=== PATIENT | male | born 1940 | race Caucasian/White ===

== ENCOUNTER 2016-07-05 15:47 | Inpatient (IN) | payer MEDICARE ==
[2016-07-05] VITALS (7 sets, daily range): BP systolic 134–169; BP diastolic 86–108; PULSE 72–97; RESP 16–32; TEMP 98.2–98.4; O2SAT 83–97
[~2016-07-05 15:47] MED LIST: APIX5TAB PO; CALA180T PO; CEPH500C3 PO; FINA5TAB77 PO; GLUC500C56 PO; LASI20TA PO; LUMI0.01 EACH EYE; METF500 PO; MULT-65 PO; POTA-243 PO; SIMV10 PO; TAMS0.4C67 PO; TIMO0.5S6 OU
[2016-07-05] MEDS ORDERED: SODIUM CHLORIDE 0.9% FLUSH 5 ML FLUSH IVF PRN ×2 (16:45→21:00)
--- NOTE | 2016-07-05 16:55 | PD ---
HPI Chief Complaint: Respiratory Distress Time Seen by Provider: 16:46 Travel History International Travel<30 days: No Contact w/Intl Traveler<30days: No Traveled to known affect area: No History of Present Illness HPI 76-year-old male with history of chronic leg edema, hypertension, presents to the ER today because of ongoing worsening of bilateral leg edema, he has been having more dyspnea on exertion and shortness of breath, has 2 sit up to sleep. His home health care nurse talked to his primary care physician who sent him in for worsening shortness of breath. He has been coughing according to his and has been taking Robitussin for it. He denies any chest pains, fevers, or other symptoms. Modifying Factors: None Associated Signs & Symptoms: Coughing, shortness of breath, dyspnea on exertion , worsening leg edema Risk Factors: History of chronic leg edema PFSH Past Medical History Hx Anticoagulant Therapy: Yes (ELOQUIS) Atrial Fibrillation: Yes Anxiety: Yes Cancer: Yes (BCC) Cardiovascular Problems: Yes (A-FIB) Diabetes: No Diminished Hearing: Yes Gastrointestinal Disorders: No Glaucoma: Yes Genitourinary: Yes (BPH) Hepatitis: No Hiatal Hernia: No Hypertension: Yes Immune Disorder: No Medical other: Yes (BPH ; [place]) Musculoskeletal: No Neurologic: No Psychiatric: No Reproductive: No Respiratory: Yes (POSSIBLE SLEEP APNEA) Thyroid Disease: No Influenza Vaccination: Yes Past Surgical History Abdominal Surgery: Yes (REPAIR INGUINAL HERNIA) Eye Surgery: Yes (EYE TURNING IN 1950 ; LEFT CATARACT SX 07/06) Genitourinary Surgery: Yes (PROSTATE SURGERY) Oral Surgery: Yes (T&A) Pacemaker: No Other Surgery: Yes Social History Alcohol Use: Yes (10 BEERS A WEEK) Tobacco Use: No Substance Use: No Allergies-Medications (Allergen,Severity, Reaction): Coded Allergies: No Known Allergies (Verified , 01/03/16) Reported Meds & Prescriptions Reported Meds & Active Scripts Active Reported Finasteride 5 Mg Tab 5 Mg PO DAILY Do not crush. Finasteride 5 Mg Tab 5 Mg PO DAILY Do not crush. Furosemide 20 Mg Tab 20 Mg PO BID Eliquis (Apixaban) 5 Mg Tab 5 Mg PO BID Simvastatin 10 Mg Tab 10 Mg PO DAILY Verapamil SR (Verapamil HCl) 180 Mg Cap 180 Mg PO DAILY Potassium Chloride ER (Potassium Chloride) 20 Meq Tab 20 Meq PO BID Tamsulosin (Tamsulosin HCl) 0.4 Mg Cap 0.4 Mg PO HS Review of Systems Except as stated in HPI: all other systems reviewed are Neg Physical Exam Narrative GENERAL: Well-nourished, well-developed elderly white male patient sitting up in the stretcher, not in acute distress at rest. Awake and oriented 3. SKIN: Warm and dry. HEAD: Normocephalic. EYES: No scleral icterus. No injection or drainage. NECK: Supple, trachea midline. CARDIOVASCULAR: Regular rate and rhythm without murmurs, gallops, or rubs. RESPIRATORY: Breath sounds equal but decreased in the lower half of the lungs bilaterally bilaterally. No accessory muscle use. GASTROINTESTINAL: Abdomen soft, non-tender, nondistended. MUSCULOSKELETAL: No cyanosis. Bilateral pitting edema the legs up to the thigh. BACK: Nontender without obvious deformity. No CVA tenderness. Data Data Last Documented VS Vital Signs Date Time Temp Pulse Resp B/P Pulse Ox O2 Delivery O2 Flow Rate FiO2 07/05/16 18:00 82 16 169/108 95 Nasal Cannula 3 07/05/16 17:00 98.2 Orders Complete Blood Count With Diff (07/05/16 16:33) Comprehensive Metabolic Panel (07/05/16 16:33) B-Type Natriuretic Peptide (07/05/16 16:33) Act Partial Throm Time (Ptt) (07/05/16 16:33) Prothrombin Time / Inr (Pt) (07/05/16 16:33) Troponin I (07/05/16 16:33) Iv Access Insert/Monitor (07/05/16 16:33) Electrocardiogram (07/05/16 16:33) Ecg Monitoring (07/05/16 16:33) Oximetry (07/05/16 16:33) Oxygen Administration (07/05/16 16:33) Chest, Single Ap (07/05/16 16:33) Sodium Chloride 0.9% Flush (Ns Flush) (07/05/16 16:45) Furosemide Inj (Lasix Inj) (07/05/16 17:00) Labs Laboratory Tests Test 07/05/16 17:00 White Blood Count 8.6 TH/MM3 Red Blood Count 4.25 MIL/MM3 Hemoglobin 10.7 GM/DL Hematocrit 34.1 % Mean Corpuscular Volume 80.3 FL Mean Corpuscular Hemoglobin 25.1 PG Mean Corpuscular Hemoglobin 31.3 % Concent Red Cell Distribution Width 16.6 % Platelet Count 240 TH/MM3 Mean Platelet Volume 7.4 FL Neutrophils (%) (Auto) 69.4 % Lymphocytes (%) (Auto) 15.6 % Monocytes (%) (Auto) 12.7 % Eosinophils (%) (Auto) 1.8 % Basophils (%) (Auto) 0.5 % Neutrophils # (Auto) 5.9 TH/MM3 Lymphocytes # (Auto) 1.3 TH/MM3 Monocytes # (Auto) 1.1 TH/MM3 Eosinophils # (Auto) 0.2 TH/MM3 Basophils # (Auto) 0.0 TH/MM3 CBC Comment DIFF FINAL Differential Comment Prothrombin Time 12.5 SEC Prothromb Time International 1.1 RATIO Ratio Activated Partial 26.7 SEC Thromboplast Time Sodium Level 139 MEQ/L Potassium Level 4.5 MEQ/L Chloride Level 100 MEQ/L Carbon Dioxide Level 35.9 MEQ/L Anion Gap 3 MEQ/L Blood Urea Nitrogen 17 MG/DL Creatinine 0.77 MG/DL Estimat Glomerular Filtration 98 ML/MIN Rate Random Glucose 93 MG/DL Calcium Level 8.3 MG/DL Total Bilirubin 0.7 MG/DL Aspartate Amino Transf 18 U/L (AST/SGOT) Alanine Aminotransferase 17 U/L (ALT/SGPT) Alkaline Phosphatase 63 U/L Troponin I 0.02 NG/ML B-Type Natriuretic Peptide 196 PG/ML Total Protein 6.5 GM/DL Albumin 3.0 GM/DL MDM Medical Decision Making Medical Screen Exam Complete: Yes Emergency Medical Condition: Yes Medical Record Reviewed: Yes Interpretation(s) EKG shows A. fib with a right bundle branch block pattern. No signs of acute ST -T changes. Last 24 hours Impressions Chest X-Ray 07/05/16 1633 Signed Impressions: Service Date/Time: Tuesday, July 05, 2016 16:52 - CONCLUSION: Mild cardiomegaly with radiographically consistent with congestive heart failure. Freya Finley MD Laboratory Tests Test 07/05/16 17:00 Red Blood Count 4.25 MIL/MM3 (4.50-5.90) Hemoglobin 10.7 GM/DL (13.0-17.0) Hematocrit 34.1 % (39.0-51.0) Mean Corpuscular Hemoglobin 25.1 PG (27.0-34.0) Mean Corpuscular Hemoglobin 31.3 % Concent (32.0-36.0) Monocytes (%) (Auto) 12.7 % (0.0-8.0) Monocytes # (Auto) 1.1 TH/MM3 (0-0.9) Prothrombin Time 12.5 SEC (9.8-11.6) Carbon Dioxide Level 35.9 MEQ/L (21.0-32.0) Anion Gap 3 MEQ/L (5-15) Calcium Level 8.3 MG/DL (8.5-10.1) B-Type Natriuretic Peptide 196 PG/ML (0-100) Albumin 3.0 GM/DL (3.4-5.0) Differential Diagnosis Shortness of breath, leg edemaCHF exacerbation versus pneumonia versus COPD versus dehydration versus metabolic issues Narrative Course Chest x-ray indicative of CHF. Lasix was given in the ER. At this point, my plan would be to admit the patient for further treatment. He appears to have failed outpatient therapy with by mouth Lasix for a few weeks. Case was discussed with Dr. Lowe for admission. Diagnosis Primary Impression: CHF exacerbation Admitting Information Admitting Physician Requests: Admit Jessica Valencia MD Jul 05, 2016 16:55
[2016-07-05] MEDS ORDERED: FUROSEMIDE 40 MG/4 ML VIAL IV PUSH ONE (17:00)
--- NOTE | 2016-07-05 17:03 | RADRPT ---
EXAM DATE/TIME: 07/05/2016 16:52 [facility] COMPARISON: No previous studies available for comparison. INDICATIONS : Shortness of breath. MEDICAL HISTORY : Atrial fibrillation. SURGICAL HISTORY : None. ENCOUNTER: Initial ACUITY: 2 months PAIN SCORE: 0/10 LOCATION: Bilateral chest FINDINGS: Single portable upright view of the chest demonstrates moderate cardiomegaly. The pulmonary vasculatu re appears mildly cephalized. The lungs are hypoinflated but otherwise grossly clear. Osseous structu res are intact.. CONCLUSION: Mild cardiomegaly with radiographically consistent with congestive heart failure. Freya Finley MD on July 05, 2016 at 17:00 Board Certified Radiologist. This report was verified electronically.
[2016-07-05 17:34] LABS: AUTOMATED NEUTROPHIL # 5.9 TH/MM3 (1.8-7.7); BASOPHIL % 0.5 % (0.0-2.0); EOSINOPHIL # 0.2 TH/MM3 (0-0.4); EOSINOPHIL % 1.8 % (0.0-4.0); HEMATOCRIT 34.1 % (39.0-51.0); HEMO FLAGS DIFF FINAL; LYMPH % 15.6 % (9.0-44.0); LYMPHOCYTE # 1.3 TH/MM3 (1.0-4.8); MEAN CELL VOLUME 80.3 FL (80.0-100.0); MEAN CORPUSCULAR HEMOGLOBIN 25.1 PG (27.0-34.0); MEAN CORPUSCULAR HGB CONC 31.3 % (32.0-36.0); MONO % 12.7 % (0.0-8.0); NEUT % 69.4 % (16.0-70.0); PLATELET COUNT 240 TH/MM3 (150-450); RED BLOOD COUNT 4.25 MIL/MM3 (4.50-5.90); RED CELL DISTRIBUTION WIDTH 16.6 % (11.6-17.2); WHITE BLOOD COUNT 8.6 TH/MM3 (4.0-11.0)
[2016-07-05 17:43] LABS: APTT (PATIENT) 26.7 SEC (24.3-30.1); INTERNATIONAL NORMALIZED RATIO 1.1 RATIO; PROTHROMBIN TIME - PATIENT 12.5 SEC (9.8-11.6)
[2016-07-05 18:22] LABS: ALKALINE PHOSPHATASE 63 U/L (45-117); ALT (GPT) 17 U/L (12-78); ANION GAP 3 MEQ/L (5-15); AST (GOT) 18 U/L (15-37); BICARBONATE 35.9 MEQ/L (21.0-32.0); BLOOD UREA NITROGEN 17 MG/DL (7-18); CHLORIDE 100 MEQ/L (98-107); GLOMERULAR FILTRATION RATE 98 ML/MIN (>89); POTASSIUM 4.5 MEQ/L (3.5-5.1); SODIUM (NA) 139 MEQ/L (136-145); TOTAL BILIRUBIN ADULT 0.7 MG/DL (0.2-1.0)
[2016-07-05] MEDS ORDERED: TAMS0.4C4 PO (18:46)
[2016-07-05] MEDS ORDERED: POTA-163 PO (18:47)
[2016-07-05] MEDS ORDERED: VERA180C3 PO (18:48)
[2016-07-05] MEDS ORDERED: SIMV10TA PO (18:48)
[2016-07-05] MEDS ORDERED: APIX5TAB PO (18:50)
[2016-07-05] MEDS ORDERED: FINA5TAB2 PO ×2 (18:50→18:51)
[2016-07-05] MEDS ORDERED: FURO20TA PO (18:50)
[2016-07-05] MEDS ORDERED: SENNOSIDES 8.6 MG TAB PO PRN (21:00)
[2016-07-05] MEDS: SODIUM CHLORIDE 0.9% FLUSH 5 ML FLUSH IVF SCH (21:00)
[2016-07-05] MEDS ORDERED: ONDANSETRON HCL 4 MG/2 ML VIAL IVP PRN (21:00)
[2016-07-06] VITALS (10 sets, daily range): BP systolic 132–176; BP diastolic 78–94; PULSE 78–145; RESP 16–22; TEMP 98.2–99.2; O2SAT 92–97
[2016-07-06 06:20] LABS: POTASSIUM 3.7 MEQ/L (3.5-5.1)
--- NOTE | 2016-07-06 08:13 | HHI.HP ---
HPI Service [facility] Primary Care Physician Andreas Palacios MD Admission Diagnosis CHF exacerbation Diagnoses: Chief Complaint: SOB, cough (Kasey Austin) Travel History International Travel<30 Days: No Contact w/Intl Traveler <30 Da: No Traveled to Known Affected Are: No (Kasey Austin) History of Present Illness This is a 76-year-old male with history of chronic leg edema, hypertension, CHF , atrial fibrillation, HTN, hyperlipidemia. Pt. presented to the ER today because of ongoing worsening of bilateral leg edema, he has been having more dyspnea on exertion and shortness of breath, has 2 sit up to sleep. Symptoms have been ongoing for several weeks. No CP, no palpitations, no fever, no chills. Has had a cough with loo/yellow sputum. Has noted increase in weight, abdomen is more distended and leg swelling increased. His home health care nurse talked to his primary care physician who sent him in for worsening shortness of breath. Pt's gizzard skin remover is Dr. Guevara, last saw him 3 months ago. He thinks he may have had an echo at that time. In the ED, pt. was evaluated, BNP was 196. Trop x 3 negative. BMP unremarkable other than elevated CO2. CBC showed mild anemia. He was hypoxic on RA, sats 83%. No fever. Tachypneic. CXR showed mild cardiomegaly and CHF. Last Impressions Chest X-Ray 07/05/16 1633 Signed Impressions: Service Date/Time: Tuesday, July 05, 2016 16:52 - CONCLUSION: Mild cardiomegaly with radiographically consistent with congestive heart failure. Freya Finley MD Pt was given Lasix 40 mg IV x 1. He has been diuresing well. Pt. endorses his diet is not the best, he does drink a few beers a week especially when he plays bingo. Uses [facility] and teds at home. Compliant with medications. Pt. states he feels better, however, still with mild SOB with conversation. Pt. is admitted for further evaluation and treatment. (Kasey Austin) Review of Systems Constitutional: DENIES: Diaphoretic episodes, Fatigue, Fever, Weight gain, Weight loss, Chills, Dizziness, Change in appetite, Night Sweats Endocrine: DENIES: Heat/cold intolerance, Polydipsia, Polyuria, Polyphagia Eyes: DENIES: Blurred vision, Diplopia, Eye inflammation, Eye pain, Vision loss , Photosensitivity, Double Vision Ears, nose, mouth, throat: DENIES: Tinnitus, Hearing loss, Vertigo, Nasal discharge, Oral lesions, Throat pain, Hoarseness, Ear Pain, Running Nose, Epistaxis, Sinus Pain, Toothache, Odynophagia Respiratory: COMPLAINS OF: Cough, Sputum production, DENIES: Apneas, Snoring, Wheezing, Hemoptysis, Shortness of breath Cardiovascular: COMPLAINS OF: Dyspnea on Exertion, Lower Extremity Edema, DENIES: Chest pain, Palpitations, Syncope, PND, Orthopnea, Claudication Gastrointestinal: DENIES: Abdominal pain, Black stools, Bloody stools, Constipation, Diarrhea, Nausea, Vomiting, Difficulty Swallowing, Anorexia Genitourinary: DENIES: Sexual dysfunction, Urinary frequency, Urinary incontinence, Urgency, Hematuria, Dysuria, Nocturia, Penile Discharge, Testicular Pain, Testicular Swelling Musculoskeletal: DENIES: Joint pain, Muscle aches, Stiffness, Joint Swelling, Back pain, Neck pain Integumentary: DENIES: Abnormal pigmentation, Nail changes, Pruritus, Rash Hematologic/lymphatic: DENIES: Bruising, Lymphadenopathy Immunologic/allergic: DENIES: Eczema, Urticaria Neurologic: DENIES: Abnormal gait, Headache, Localized weakness, Paresthesias, Seizures, Speech Problems, Tremor, Poor Balance Psychiatric: DENIES: Anxiety, Confusion, Mood changes, Depression, Hallucinations, Agitation, Suicidal Ideation, Homicidal Ideation, Delusions ( Kasey Austin) Past Family Social History Past Medical History afib cataracts kidney stones HTN Hyperlipidemia CHF obesity poss. sleep apnea Past Surgical History cataract surgery Inguinal hernia repair Prostate surgery T & A Reported Medications Reported Meds & Active Scripts Active Reported Finasteride 5 Mg Tab 5 Mg PO DAILY Do not crush. Finasteride 5 Mg Tab 5 Mg PO DAILY Do not crush. Furosemide 20 Mg Tab 20 Mg PO BID Eliquis (Apixaban) 5 Mg Tab 5 Mg PO BID Simvastatin 10 Mg Tab 10 Mg PO DAILY Verapamil SR (Verapamil HCl) 180 Mg Cap 180 Mg PO DAILY Potassium Chloride ER (Potassium Chloride) 20 Meq Tab 20 Meq PO BID Tamsulosin (Tamsulosin HCl) 0.4 Mg Cap 0.4 Mg PO HS (Kasey Austin) Allergies: Coded Allergies: No Known Allergies (Verified , 01/03/16) Active Ordered Medications Inpatient Medications Acetaminophen (Tylenol) 650 mg Q6H PRN PO PAIN SCALE 1 TO 2; Start 07/05/16 at 21:00 Furosemide (Lasix Inj) 40 mg BID@09,18 IVP ; Start 07/06/16 at 09:00 IV Flush (NS Flush) 2 ml BID IVF ; Start 07/05/16 at 21:00 Ondansetron HCl (Zofran Inj) 4 mg Q6H PRN IVP NAUSEA OR VOMITING; Start at 21:00 Sennosides (Senokot) 17.2 mg Q12H PRN PO CONSTIPATION; Start 07/05/16 at 21:00 Family History Doesn't know Social History , lives with . No smoking, drinks up to 10 beers a week, no illegal drug use. (aKsey Austin) Physical Exam Vital Signs Vital Signs Date Time Temp Pulse Resp B/P Pulse Ox O2 Delivery O2 Flow Rate FiO2 07/06/16 03:54 98.4 78 21 158/78 97 07/06/16 02:57 106 07/06/16 00:50 98.8 87 21 176/88 97 07/05/16 21:04 94 High Flow Nasal Cannula 3.00 07/05/16 20:10 90 20 164/91 96 Nasal Cannula 3 07/05/16 18:00 82 16 169/108 95 Nasal Cannula 3 07/05/16 17:24 72 20 156/93 97 Room Air 07/05/16 17:24 97 Nasal Cannula 3 07/05/16 17:00 98.2 74 16 156/93 90 Nasal Cannula 3 07/05/16 16:23 85 16 93 Nasal Cannula 3 07/05/16 16:02 96 Nasal Cannula 2 07/05/16 15:55 32 84 07/05/16 15:49 98.4 97 18 134/86 83 Room Air Physical Exam GENERAL: This is a well-nourished, obese male, SOB with conversation. SKIN: Chronic venous discoloration to both lower extremities, skin warm and dry. HEAD: Atraumatic. Normocephalic. No temporal or scalp tenderness. EYES: Pupils equal round and reactive. Extraocular motions intact. No scleral icterus. No injection or drainage. ENT: Nose without bleeding, purulent drainage or septal hematoma. Throat without erythema, tonsillar hypertrophy or exudate. Uvula midline. Airway patent. NECK: Trachea midline. No JVD or lymphadenopathy. Supple, nontender, no meningeal signs. CARDIOVASCULAR: S1-S2, irregularly irregular, without murmurs, gallops, or rubs. Bilateral lower extremities with 3+ pitting edema from below knee down to feet, difficult to palpate pedal pulses. Flank edema noted as well. RESPIRATORY: Faint bibasilar Rales, mild expiratory wheezing. Dry cough GASTROINTESTINAL: Abdomen soft, non-tender, nondistended. Flank edema. Unable to palpate organomegaly due to body habitus. No guarding. MUSCULOSKELETAL: No joint tenderness, effusion, or edema noted. No calf tenderness. Negative Homans sign bilaterally. NEUROLOGICAL: Awake and alert. Cranial nerves II through XII intact. Motor and sensory grossly within normal limits. Five out of 5 muscle strength in all muscle groups. Normal speech. Laboratory Laboratory Tests Test 07/05/16 07/05/16 07/06/16 17:00 23:00 05:00 White Blood Count 8.6 Red Blood Count 4.25 Hemoglobin 10.7 Hematocrit 34.1 Mean Corpuscular Volume 80.3 Mean Corpuscular Hemoglobin 25.1 Mean Corpuscular Hemoglobin 31.3 Concent Red Cell Distribution Width 16.6 Platelet Count 240 Mean Platelet Volume 7.4 Neutrophils (%) (Auto) 69.4 Lymphocytes (%) (Auto) 15.6 Monocytes (%) (Auto) 12.7 Eosinophils (%) (Auto) 1.8 Basophils (%) (Auto) 0.5 Neutrophils # (Auto) 5.9 Lymphocytes # (Auto) 1.3 Monocytes # (Auto) 1.1 Eosinophils # (Auto) 0.2 Basophils # (Auto) 0.0 CBC Comment DIFF FINAL Differential Comment Prothrombin Time 12.5 Prothromb Time International 1.1 Ratio Activated Partial 26.7 Thromboplast Time Sodium Level 139 141 Potassium Level 4.5 3.7 Chloride Level 100 98 Carbon Dioxide Level 35.9 39.0 Anion Gap 3 4 Blood Urea Nitrogen 17 Creatinine 0.77 Estimat Glomerular Filtration 98 Rate Random Glucose 93 Calcium Level 8.3 Total Bilirubin 0.7 Aspartate Amino Transf 18 (AST/SGOT) Alanine Aminotransferase 17 (ALT/SGPT) Alkaline Phosphatase 63 Troponin I 0.02 LESS THAN 0.02 0.02 B-Type Natriuretic Peptide 196 Total Protein 6.5 Albumin 3.0 (Kasey Austin) Result Diagram: 07/05/16 1700 07/06/16 0500 Imaging Last Impressions Chest X-Ray 07/05/16 1633 Signed Impressions: Service Date/Time: Tuesday, July 05, 2016 16:52 - CONCLUSION: Mild cardiomegaly with radiographically consistent with congestive heart failure. rFeya Finley MD (Kasey Austin) Assessment and Plan Problem List: (1) CHF exacerbation (2) Atrial fibrillation (3) Hyperlipidemia (4) Hypertension (5) Obesity Assessment and Plan Admit to Dr. Saunders 76-year-old white male with significant past medical history of A. fib, hypertension, CHF, chronic peripheral edema. Came to emergency room complaining of ongoing dyspnea with exertion worsening over the last couple of weeks, orthopnea, increased lower extremity edema, hypoxia. Pt. was found in acute congestive heart failure. -Continuous cardiac telemetry Lasix 40 mg IV twice a day Consul Dr. Guevara for evaluation Defer echocardiogram to Dr. Guevara, patient believes he had one in the last 3 months Heart healthy diet with 1500 cc fluid restriction Discussed with patient need to comply with diet, avoid beer -Strict intake and output Chronic atrial fibrillation, initially heart rate related, now stable Continue verapamil Resume Eliquis Cough with sputum production, ongoing, with mild wheezing -DuoNeb's when necessary Empiric antibiotics -Tessalon PRN Hypertension -Resume home medications Hyperlipidemia Resume home medications BPH Resume home meds Home medications reviewed, initiated as indicated Continue with Eliquis for DVT prophylaxis Plan of care discussed with the patient, attending and registered nurse. Further management of the patient be dependent on the hospital course This patient was seen by myself and Dr. Rasmussen, this H&P is written on his behalf (Kasey Austin) Assessment and Plan pt seen and examined as above chart was reviewed meds labs and rad data reviwed notes reviwed plan of care dw front end specialist dw pt dw rn (Corey Saunders MD) Problem Qualifiers (1) CHF exacerbation: Qualified Code: I50.9 - Acute on chronic congestive heart failure, unspecified congestive heart failure type (2) Atrial fibrillation: Qualified Code: I48.2 - Chronic atrial fibrillation (3) Hyperlipidemia: Qualified Code: E78.5 - Hyperlipidemia, unspecified hyperlipidemia type (4) Hypertension: Qualified Code: I10 - Essential hypertension (5) Obesity: Qualified Code: E66.9 - Obesity, unspecified obesity severity, unspecified obesity type Kasey Austin Jul 06, 2016 08:13 Corey Saunders MD Jul 06, 2016 21:54
[2016-07-06] MEDS ORDERED: VERAPAMIL HCL 180 MG SUSTAINED RELEASE TAB PO SCH (09:00)
[2016-07-06] MEDS: AZITHROMYCIN 250 MG TAB PO SCH (11:01)
[2016-07-06] MEDS: POTASSIUM CHLORIDE 20 MEQ CONTROLLED RELEASE TAB PO SCH ×2 (11:01→20:08)
[2016-07-06] MEDS: PRAVASTATIN SOD 20 MG TAB PO SCH (11:02)
[2016-07-06] MEDS: APIXABAN 5 MG TABLET PO SCH ×2 (11:02→20:08)
[2016-07-06] MEDS: FUROSEMIDE 40 MG/4 ML VIAL IVP SCH ×2 (11:03→19:56)
[2016-07-06] MEDS: FINASTERIDE 5 MG TAB PO SCH (11:20)
--- NOTE | 2016-07-06 13:21 | MB ---
cc: BRADFORD JARQUIN DATE OF CONSULTATION 07/06/2016 DATE OF 1940 REASON FOR CONSULTATION Shortness of breath. HISTORY OF PRESENT ILLNESS 76-year-old male with past medical history significant for diastolic heart failure, hypertension, morbid obesity, atrial fibrillation on chronic oral anticoagulation, hyperlipidemia who presented to the hospital with worsening bilateral leg edema, weight gain and shortness of breath on exertion. He reports that the symptoms started several weeks ago and that his water pill at home was not giving him enough urine output. He reports being compliant with medications, however, he is lenient with diet and water intake at home. He is a patient of partner, Dr. Guevara, who saw him in November. Echocardiogram done in 2014 showing a normal EF of 67% with left atrial enlargement and right ventricular enlargement. He currently reports feeling better after IV lasix. He denies chest pain. He is still having some shortness of breath, however, he says it is getting better. REVIEW OF SYSTEMS Negative except for what is mentioned in the HPI. PAST MEDICAL HISTORY 1. Atrial fibrillation on chronic anticoagulation 2. Kidney stones 3. Hypertension 4. Hyperlipidemia 5. Morbid obesity 6. Heart failure 7. Sleep apnea 8. Venous insufficiency PAST SURGICAL HISTORY 1. Cataract surgery 2. Hernia repair 3. Prostate surgery HOME MEDICATIONS 1. Finasteride 5 mg p.o. daily 2. Lasix 20 mg p.o. b.i.d. 3. Eliquis 5 mg p.o. b.i.d. 4. Simvastatin 10 mg p.o. daily 5. Verapamil SR 180 mg p.o. daily 6. Potassium chloride 20 mEq p.o. b.i.d. 7. Tamsulosin 0.4 mg p.o. q.h.s. ALLERGIES NO KNOWN DRUG ALLERGIES. FAMILY HISTORY Noncontributory SOCIAL HISTORY He does not smoke. He drinks about two beers a week and no illicit drug use. PHYSICAL EXAM VITAL SIGNS: Temperature 98, respiratory rate 16, pulse of 129, blood pressure 143/94, O2 sat 93% 2L nasal cannula. GENERAL: He is awake, alert, oriented x3, lying in bed in no acute distress. NECK: Obese. I cannot appreciate JVD. HEART: He is irregularly with no murmurs, rubs or gallops appreciated. LUNGS: Poor respiratory effort. ABDOMEN: Obese. Positive bowel sounds, soft, nontender, nondistended. EXTREMITIES: There is bilateral edema and no cyanosis. LABORATORY FINDINGS Hemoglobin of 10, hematocrit 34, platelet count 240, INR 1.1. Chemistries shows a BUN of 17, creatinine of 0.77, troponins negative times three with values of less than 0.02. BNP of 196. Chest x-ray showed some heart failure. EKG shows atrial fibrillation with RVR nonspecific ST changes. ASSESSMENT/PLAN A 76-year-old male with above history and findings admitted with heart failure exacerbation in the setting of dietary indiscretions and atrial fibrillation with RVR . He has being responding to IV diuresis and shortness of breath symptoms have improved however heart rate is not controlled. No recent ischemic workup done in the office or in the hospital. He normal EF last year and RV enlargement. I think at this time, we should continue aggressive diuresis with IV Lasix, strict in and outputs, as well as daily weights and start diltiazem drip to control heart rate. Also repeat transthoracic echocardiogram to assess LV systolic function. We will consider ischemic evaluation (nuclear stress test) before discharge. Thank you for the opportunity to take part in the care of this patient. We will follow with you. MD TAMI Campo/LARISA /12:46 PM /1:04 PM [facility]
--- NOTE | 2016-07-06 14:59 | EKG ---
Date Performed: 07/05/2016 Time Performed: 17:29:57 PTAGE: 76 years EKG: ATRIAL FIBRILLATION INTRAVENTRICULAR CONDUCTION DELAY RIGHT BUNDLE BRANCH BLOCK NONSPECIFIC ST-T WAVE CHANGES PROLONGED CORRECTED QT INTERVAL ABNORMAL ECG PREVIOUS TRACING : 06/18/2009 11.04 DOCTOR: Pete Ramirez Interpretating Date/Time 07/06/2016 14:57:50
[2016-07-06] MEDS: SODIUM CHLORIDE 0.9% FLUSH 5 ML FLUSH IVF SCH ×2 (19:56→20:08)
[2016-07-06] MEDS: TAMSULOSIN HCL 0.4 MG CAP PO SCH (20:08)
[2016-07-06] MEDS: BENZONATATE 100 MG CAP PO PRN (23:14)
[2016-07-06] MEDS: RESP: ALBUTEROL 2.5 MG/IPRATROPIUM 0.5 MG NEB (PRN) NEB (23:21)
[2016-07-07] VITALS (16 sets, daily range): BP systolic 117–158; BP diastolic 57–88; PULSE 80–134; RESP 18–22; TEMP 97.8–99.2; O2SAT 93–96
--- NOTE | 2016-07-07 09:12 | HHI.PR ---
Subjective Remarks still SOB with activity, but improved from yesterday no cough no cp no fever tele reviewed, afib with RVR overnight, HR 90s now Objective Objective Results - Vital Signs Date Time Temp Pulse Resp B/P Pulse Ox O2 Delivery O2 Flow Rate FiO2 07/07/16 08:07 130 18 129/88 93 07/07/16 04:26 98.2 120 20 148/82 93 07/07/16 01:10 98.2 112 20 158/73 93 07/06/16 23:25 97 Nasal Cannula 3.00 07/06/16 22:02 98.2 125 20 132/89 93 07/06/16 21:50 98 07/06/16 16:23 98.5 118 20 132/85 92 07/06/16 12:47 99.2 145 22 152/81 95 I/O 07/06/16 07/06/16 07/06/16 07/07/16 07/07/16 07/07/16 07:00 15:00 23:00 07:00 15:00 23:00 Intake Total 240 ml 320 ml 600 ml Output Total 1200 ml Balance 240 ml 320 ml -600 ml Intake Oral 240 ml 320 ml 600 ml Output Urine Total 1200 ml # Voids 3 5 2 # Bowel Movements 2 0 Result Diagram: 07/05/16 1700 07/06/16 0500 Imaging Last Impressions Chest X-Ray 07/05/16 1633 Signed Impressions: Service Date/Time: Tuesday, July 05, 2016 16:52 - CONCLUSION: Mild cardiomegaly with radiographically consistent with congestive heart failure. 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 SKIN: Chronic venous discoloration to both lower extremities, skin warm and dry. HEAD: Atraumatic. Normocephalic. No temporal or scalp tenderness. EYES: Pupils equal round and reactive. Extraocular motions intact. No scleral icterus. No injection or drainage. ENT: Nose without bleeding, purulent drainage or septal hematoma. Throat without erythema, tonsillar hypertrophy or exudate. Uvula midline. Airway patent. NECK: Trachea midline. No JVD or lymphadenopathy. Supple, nontender, no meningeal signs. CARDIOVASCULAR: S1-S2, irregularly irregular, without murmurs, gallops, or rubs. Bilateral lower extremities with 3+ pitting edema from below knee down to feet, difficult to palpate pedal pulses. Flank edema noted as well. RESPIRATORY: Faint bibasilar Rales, mild expiratory wheezing. Dry cough GASTROINTESTINAL: Abdomen soft, non-tender, nondistended. Flank edema. Unable to palpate organomegaly due to body habitus. No guarding. MUSCULOSKELETAL: No joint tenderness, effusion, or edema noted. No calf tenderness. Negative Homans sign bilaterally. NEUROLOGICAL: Awake and alert. Cranial nerves II through XII intact. Motor and sensory grossly within normal limits. Five out of 5 muscle strength in all muscle groups. Normal speech. Urinary Catheter: No Vascular Central Line Catheter: No A/P Diagnosis: (1) CHF exacerbation (2) Atrial fibrillation (3) Hyperlipidemia (4) Hypertension (5) Obesity Assessment and Plan 76-year-old white male with significant past medical history of A. fib, hypertension, CHF, chronic peripheral edema. Came to emergency room complaining of ongoing dyspnea with exertion worsening over the last couple of weeks, orthopnea, increased lower extremity edema, hypoxia. Pt. was found in acute congestive heart failure. -Continuous cardiac telemetry Continue with Lasix 40 mg IV twice a day -Appreciate card input, evaluated per Dr. Poon, recommends to continue IV diuresis and 2D echo Heart healthy diet with 1500 cc fluid restriction Discussed with patient need to comply with diet, avoid beer-verbalizes understanding, agreeable -Strict intake and output Chronic atrial fibrillation, occ. episodes of RVR Continue verapamil-inc. to [address] Poon Continue Eliquis Cough with sputum production, ongoing, with mild wheezing -DuoNeb's when necessary Empiric antibiotics -Tessalon PRN Hypertension -Continue home medications Hyperlipidemia Continue home medications BPH Continue home meds Continue with Eliquis for DVT prophylaxis Not ready for discharge, continue with diuretics, HR control, f/u echo report PT for eval and tx Labs reviewed, stable D/W RN D/W Dr. Saunders D/W pt. This patient was seen by myself and Dr. Rasmussen, this note is written on his behalf Problem Qualifiers (1) CHF exacerbation: Qualified Code: I50.9 - Acute on chronic congestive heart failure, unspecified congestive heart failure type (2) Atrial fibrillation: Qualified Code: I48.2 - Chronic atrial fibrillation (3) Hyperlipidemia: Qualified Code: E78.5 - Hyperlipidemia, unspecified hyperlipidemia type (4) Hypertension: Qualified Code: I10 - Essential hypertension (5) Obesity: Qualified Code: E66.9 - Obesity, unspecified obesity severity, unspecified obesity type Kasey Austin Jul 07, 2016 09:12
--- NOTE | 2016-07-07 09:12 | HHI.FF ---
Face to Face Verification Diagnosis: (1) CHF exacerbation (2) Atrial fibrillation (3) Hyperlipidemia (4) Hypertension (5) Obesity Physical Therapy Order: Evaluate and Treat Home Health Nursing Order: Medical education CHF education Medication education-adverse effect Nursing assessment with vital signs Electronic Development Technician Order: To Evaluate: Support services Order: To Provide: Community services I have seen patient Yuan Mcgill on 07/07/16. My clinical findings support the need for the requested home health care services because: Patient has SOB Deconditioned w/ increased weakness I certify that my clinical findings support that this patient is homebound because: Need for psychosocial assistance Kasey Austin Jul 07, 2016 09:12
[2016-07-07] MEDS: FUROSEMIDE 40 MG/4 ML VIAL IVP SCH (09:20)
[2016-07-07] MEDS: APIXABAN 5 MG TABLET PO SCH ×2 (09:21→19:44)
[2016-07-07] MEDS: PRAVASTATIN SOD 20 MG TAB PO SCH (09:21)
[2016-07-07] MEDS: VERAPAMIL HCL 240 MG SUSTAINED RELEASE TAB PO SCH (09:21)
[2016-07-07] MEDS: SODIUM CHLORIDE 0.9% FLUSH 5 ML FLUSH IVF SCH ×2 (09:21→19:44)
[2016-07-07] MEDS: POTASSIUM CHLORIDE 20 MEQ CONTROLLED RELEASE TAB PO SCH ×2 (09:21→19:44)
[2016-07-07] MEDS: FINASTERIDE 5 MG TAB PO SCH (09:22)
[2016-07-07] MEDS: AZITHROMYCIN 250 MG TAB PO SCH (09:22)
[2016-07-07] MEDS ORDERED: DILTIAZEM HCL 25 MG/5 ML VIAL IV ONE (09:45)
--- NOTE | 2016-07-07 12:48 | PD.CARD.PN ---
Subjective Subjective Remarks no complaints afib with RVR Objective Medications Current Medications Medications (Trade) Dose Ordered Sig/Clark Route Start Time Stop Time Status Last Admin (NS Flush) 2 ml UNSCH PRN IVF 07/05/16 21:00 (NS Flush) 2 ml BID IVF 07/05/16 21:00 07/07/16 09:21 (Zofran Inj) 4 mg Q6H PRN IVP 07/05/16 21:00 (Senokot) 17.2 mg Q12H PRN PO 07/05/16 21:00 (Tylenol) 650 mg Q6H PRN PO 07/05/16 21:00 (Eliquis) 5 mg BID PO 07/06/16 09:00 07/07/16 09:21 (Proscar) 5 mg DAILY PO 07/06/16 09:00 07/07/16 09:22 (KCl) 20 meq BID PO 07/06/16 09:00 07/07/16 09:21 (Flomax) 0.4 mg HS PO 07/06/16 21:00 07/06/16 20:08 (Pravachol) 20 mg DAILY PO 07/06/16 09:00 07/07/16 09:21 (Tessalon) 200 mg TID PRN PO 07/06/16 08:15 07/06/16 23:14 (Zithromax) 500 mg Q24H PO 07/06/16 10:00 07/07/16 09:22 (Isoptin Sr) 240 mg DAILY PO 07/07/16 09:00 07/07/16 09:21 (Lasix) 40 mg BID@ PO 07/07/16 18:00 Vital Signs / I&O Vital Signs Date Time Temp Pulse Resp B/P Pulse Ox O2 Delivery O2 Flow Rate FiO2 07/07/16 11:44 97.8 80 18 122/68 95 07/07/16 10:30 90 20 117/58 07/07/16 10:26 96 20 119/57 07/07/16 10:22 122 20 120/62 07/07/16 08:07 130 18 129/88 93 07/07/16 04:26 98.2 120 20 148/82 93 07/07/16 01:10 98.2 112 20 158/73 93 07/06/16 23:25 97 Nasal Cannula 3.00 07/06/16 22:02 98.2 125 20 132/89 93 07/06/16 21:50 98 07/06/16 16:23 98.5 118 20 132/85 92 07/06/16 12:47 99.2 145 22 152/81 95 I/O 07/06/16 07/06/16 07/06/16 07/07/16 07/07/16 07/07/16 06:59 14:59 22:59 06:59 14:59 22:59 Intake Total 240 ml 320 ml 600 ml 360 ml Output Total 1200 ml Balance 240 ml 320 ml -600 ml 360 ml Intake Oral 240 ml 320 ml 600 ml 360 ml Output Urine Total 1200 ml # Voids 3 2 5 3 # Bowel Movements 2 0 Physical Exam GENERAL: Well-nourished, well-developed patient. SKIN: Warm and dry. HEAD: Normocephalic. EYES: No scleral icterus. No injection or drainage. NECK: Supple, trachea midline. No JVD or lymphadenopathy. CARDIOVASCULAR: IRR IRR no murmurs, gallops, or rubs. RESPIRATORY: Breath sounds equal bilaterally. No accessory muscle use. GASTROINTESTINAL: Abdomen soft, non-tender, nondistended, obese EXTREMITIES: No cyanosis, +2 edema. NEUROLOGICAL: Awake, alert, and oriented x 3. Non-focal. Imaging Last Impressions Chest X-Ray 07/05/16 1633 Signed Impressions: Service Date/Time: Tuesday, July 05, 2016 16:52 - CONCLUSION: Mild cardiomegaly with radiographically consistent with congestive heart failure. Freya Finley MD Assessment and Plan Problem List: (1) CHF exacerbation Assessment and Plan: Cont IV diuresis Get 2Decho Afib with RVR CCB increased yesterday. Give Cardizem IV start Cardizem drip Cont OAC (2) Atrial fibrillation (3) Hyperlipidemia (4) Hypertension (5) Obesity Problem Qualifiers (1) CHF exacerbation: Qualified Code: I50.9 - Acute on chronic congestive heart failure, unspecified congestive heart failure type (2) Atrial fibrillation: Qualified Code: I48.2 - Chronic atrial fibrillation (3) Hyperlipidemia: Qualified Code: E78.5 - Hyperlipidemia, unspecified hyperlipidemia type (4) Hypertension: Qualified Code: I10 - Essential hypertension (5) Obesity: Qualified Code: E66.9 - Obesity, unspecified obesity severity, unspecified obesity type Cam Ewing MD Jul 07, 2016 12:48
[2016-07-07] MEDS ORDERED: PADIMATE (CHAPSTICK) 4.5 GM TUBE TOP PRN (15:15)
[2016-07-07] MEDS: FUROSEMIDE 40 MG/4 ML VIAL IV PUSH SCH (17:12)
[2016-07-07] MEDS ORDERED: FUROSEMIDE 40 MG TAB PO SCH (18:00)
[2016-07-07] MEDS: TAMSULOSIN HCL 0.4 MG CAP PO SCH (19:44)
[2016-07-08] VITALS (12 sets, daily range): BP systolic 119–161; BP diastolic 74–84; PULSE 100–119; RESP 18–22; TEMP 98–98.9; O2SAT 93–98
[2016-07-08] MEDS: POTASSIUM CHLORIDE 20 MEQ CONTROLLED RELEASE TAB PO SCH ×2 (08:29→21:49)
[2016-07-08] MEDS: AZITHROMYCIN 250 MG TAB PO SCH (08:29)
[2016-07-08] MEDS: PRAVASTATIN SOD 20 MG TAB PO SCH (08:29)
[2016-07-08] MEDS: VERAPAMIL HCL 240 MG SUSTAINED RELEASE TAB PO SCH (08:29)
[2016-07-08] MEDS: APIXABAN 5 MG TABLET PO SCH ×2 (08:30→21:49)
[2016-07-08] MEDS: SODIUM CHLORIDE 0.9% FLUSH 5 ML FLUSH IVF SCH ×2 (08:30→21:00)
[2016-07-08] MEDS: FUROSEMIDE 40 MG/4 ML VIAL IV PUSH SCH ×2 (08:30→17:33)
[2016-07-08] MEDS: FINASTERIDE 5 MG TAB PO SCH (08:30)
--- NOTE | 2016-07-08 08:39 | PD.CARD.PN ---
Subjective Subjective Remarks no complaints tele-afib with RVR Objective Medications Current Medications Medications (Trade) Dose Ordered Sig/Clark Route Start Time Stop Time Status Last Admin (NS Flush) 2 ml UNSCH PRN IVF 07/05/16 21:00 07/07/16 17:12 (NS Flush) 2 ml BID IVF 07/05/16 21:00 07/08/16 08:30 (Zofran Inj) 4 mg Q6H PRN IVP 07/05/16 21:00 (Senokot) 17.2 mg Q12H PRN PO 07/05/16 21:00 (Tylenol) 650 mg Q6H PRN PO 07/05/16 21:00 (Eliquis) 5 mg BID PO 07/06/16 09:00 07/08/16 08:30 (Proscar) 5 mg DAILY PO 07/06/16 09:00 07/08/16 08:30 (KCl) 20 meq BID PO 07/06/16 09:00 07/08/16 08:29 (Flomax) 0.4 mg HS PO 07/06/16 21:00 07/07/16 19:44 (Pravachol) 20 mg DAILY PO 07/06/16 09:00 07/08/16 08:29 (Tessalon) 200 mg TID PRN PO 07/06/16 08:15 07/06/16 23:14 (Zithromax) 500 mg Q24H PO 07/06/16 10:00 07/08/16 08:29 (Isoptin Sr) 240 mg DAILY PO 07/07/16 09:00 07/08/16 08:29 (Chapstick) 1 applic UNSCH PRN TOP 07/07/16 15:15 (Lasix Inj) 40 mg BID@09,18 IV PUSH 07/07/16 18:00 07/08/16 08:30 Vital Signs / I&O Vital Signs Date Time Temp Pulse Resp B/P Pulse Ox O2 Delivery O2 Flow Rate FiO2 07/08/16 08:02 110 07/08/16 07:30 2.00 07/08/16 04:00 98.5 117 18 143/78 94 07/08/16 00:00 98.9 114 20 161/82 94 07/07/16 20:00 104 07/07/16 20:00 98.7 104 18 133/71 95 07/07/16 19:00 95 Nasal Cannula 4.00 07/07/16 19:00 95 Nasal Cannula 4.00 07/07/16 18:00 97 07/07/16 17:00 101 07/07/16 16:12 99.2 92 22 133/71 96 07/07/16 16:00 99 07/07/16 16:00 95 Nasal Cannula 4.00 07/07/16 16:00 95 Nasal Cannula 4.00 07/07/16 15:00 97 07/07/16 12:00 95 Nasal Cannula 3.50 07/07/16 12:00 95 Nasal Cannula 3.50 07/07/16 11:44 97.8 80 18 122/68 95 07/07/16 10:30 90 20 117/58 07/07/16 10:26 96 20 119/57 07/07/16 10:22 122 20 120/62 07/07/16 09:30 134 I/O 07/07/16 07/07/16 07/07/16 07/08/16 07/08/16 07/08/16 07:00 15:00 23:00 07:00 15:00 23:00 Intake Total 600 ml 240 ml 240 ml Output Total 300 ml 200 ml 450 ml Balance 300 ml 40 ml -210 ml Intake Oral 600 ml 240 ml 240 ml Output Urine Total 300 ml 200 ml 450 ml # Voids 2 3 # Bowel Movements 0 Physical Exam GENERAL: Well-nourished, well-developed patient. SKIN: Warm and dry. HEAD: Normocephalic. EYES: No scleral icterus. No injection or drainage. NECK: Supple, trachea midline. No JVD or lymphadenopathy. CARDIOVASCULAR: IRR IRR no murmurs, gallops, or rubs. RESPIRATORY: Breath sounds equal bilaterally. No accessory muscle use. GASTROINTESTINAL: Abdomen soft, non-tender, nondistended, obese EXTREMITIES: No cyanosis, +2 edema. NEUROLOGICAL: Awake, alert, and oriented x 3. Non-focal. Assessment and Plan Problem List: (1) Atrial fibrillation Assessment and Plan: Start Cardizem Drip Cont OAC Cont IV diuresis Encourage out of bed Strict I&O Echo PENDING (2) CHF exacerbation (3) Hyperlipidemia (4) Hypertension (5) Obesity Problem Qualifiers (1) Atrial fibrillation: Qualified Code: I48.2 - Chronic atrial fibrillation (2) CHF exacerbation: Qualified Code: I50.9 - Acute on chronic congestive heart failure, unspecified congestive heart failure type (3) Hyperlipidemia: Qualified Code: E78.5 - Hyperlipidemia, unspecified hyperlipidemia type (4) Hypertension: Qualified Code: I10 - Essential hypertension (5) Obesity: Qualified Code: E66.9 - Obesity, unspecified obesity severity, unspecified obesity type Cam Ewing MD Jul 08, 2016 08:39
[2016-07-08] MEDS ORDERED: DILTIAZEM HCL 25 MG/5 ML VIAL IVP ONE (08:45)
--- NOTE | 2016-07-08 10:49 | HHI.PR ---
Subjective Remarks still SOB with activity, but improve no cough no cp no fever tele reviewed, afib with RVR overnight, HR 90s now Review of system for 10 point system otherwise unremarkable - Objective Objective Results - Vital Signs Date Time Temp Pulse Resp B/P Pulse Ox O2 Delivery O2 Flow Rate FiO2 07/08/16 09:52 98.0 118 20 148/74 07/08/16 08:02 110 07/08/16 07:30 2.00 07/08/16 04:00 98.5 117 18 143/78 94 07/08/16 00:00 98.9 114 20 161/82 94 07/07/16 20:00 104 07/07/16 20:00 98.7 104 18 133/71 95 07/07/16 19:00 95 Nasal Cannula 4.00 07/07/16 19:00 95 Nasal Cannula 4.00 07/07/16 18:00 97 07/07/16 17:00 101 07/07/16 16:12 99.2 92 22 133/71 96 07/07/16 16:00 99 07/07/16 16:00 95 Nasal Cannula 4.00 07/07/16 16:00 95 Nasal Cannula 4.00 07/07/16 15:00 97 07/07/16 12:00 95 Nasal Cannula 3.50 07/07/16 12:00 95 Nasal Cannula 3.50 07/07/16 11:44 97.8 80 18 122/68 95 I/O 07/07/16 07/07/16 07/07/16 07/08/16 07/08/16 07/08/16 07:00 15:00 23:00 07:00 15:00 23:00 Intake Total 600 ml 240 ml 240 ml Output Total 300 ml 200 ml 450 ml Balance 300 ml 40 ml -210 ml Intake Oral 600 ml 240 ml 240 ml Output Urine Total 300 ml 200 ml 450 ml # Voids 2 3 # Bowel Movements 0 Result Diagram: 07/05/16 1700 07/06/16 0500 Imaging Last Impressions Chest X-Ray 07/05/16 1633 Signed Impressions: Service Date/Time: Tuesday, July 05, 2016 16:52 - CONCLUSION: Mild cardiomegaly with radiographically consistent with congestive heart failure. Freya Finley MD Physical Exam Physical Exam GENERAL: This is a well-nourished, obese male, SOB with conversation. SKIN: Chronic venous discoloration to both lower extremities, skin warm and dry. HEAD: Atraumatic. Normocephalic. No temporal or scalp tenderness. EYES: Pupils equal round and reactive. Extraocular motions intact. No scleral icterus. No injection or drainage. ENT: Airway patent. NECK: Trachea midline. Supple, nontender, no meningeal signs. CARDIOVASCULAR: S1-S2, irregularly irregular, without murmurs, gallops, or rubs. Bilateral lower extremities with 2+ pitting edema from below knee down to feet, difficult to palpate pedal pulses. RESPIRATORY: Occasional Faint bibasilar Rales, mild expiratory wheezing bibasally. GASTROINTESTINAL: Abdomen soft, non-tender, nondistended. Flank edema. Unable to palpate organomegaly due to body habitus. No guarding. MUSCULOSKELETAL: No joint tenderness, effusion, or edema noted. No calf tenderness. Negative Homans sign bilaterally. NEUROLOGICAL: Awake and alert. Cranial nerves II through XII intact. Motor and sensory grossly within normal limits. Five out of 5 muscle strength in all muscle groups. Normal speech. Urinary Catheter: No Vascular Central Line Catheter: No A/P Assessment and Plan (1) CHF exacerbation (2) Atrial fibrillation (3) Hyperlipidemia (4) Hypertension (5) Obesity Plan 76-year-old white male with significant past medical history of A. fib, hypertension, CHF, chronic peripheral edema. Came to emergency room complaining of ongoing dyspnea with exertion worsening over the last couple of weeks, orthopnea, increased lower extremity edema, hypoxia. Pt. was found in acute congestive heart failure. -Continuous cardiac telemetry Continue with Lasix 40 mg IV twice a day -Appreciate card input, evaluated per Dr. Poon, recommends to continue IV diuresis and 2D echo Heart healthy diet with 1500 cc fluid restriction Discussed with patient need to comply with diet, avoid beer-verbalizes understanding, agreeable -Strict intake and output Chronic atrial fibrillation, occ. episodes of RVR Continue verapamil-inc. to [address] Poon Continue Eliquis Cough with sputum production, ongoing, with mild wheezing -DuoNeb's when necessary Empiric antibiotics -Tessalon PRN Hypertension -Continue home medications Hyperlipidemia Continue home medications BPH Continue home meds Continue with Eliquis for DVT prophylaxis f/u echo report PT for eval and tx Labs reviewed, labs for tomorrow D/W RN D/W pt. Corey Saunders MD Jul 08, 2016 10:49
[2016-07-08] MEDS: DILTIAZEM INJ 125 MG in SODIUM CHLORIDE 0.9% INJ 100 ML IV SCH ×2 (10:52→21:48)
[2016-07-08] MEDS: TAMSULOSIN HCL 0.4 MG CAP PO SCH (21:49)
[2016-07-08] MEDS: BENZONATATE 100 MG CAP PO PRN (23:03)
[2016-07-09] VITALS (18 sets, daily range): BP systolic 130–150; BP diastolic 68–78; PULSE 87–112; RESP 18–22; TEMP 98–98.4; O2SAT 91–97
[2016-07-09 07:07] LABS: HEMATOCRIT 32.7 % (39.0-51.0); MEAN CELL VOLUME 80.8 FL (80.0-100.0); MEAN CORPUSCULAR HEMOGLOBIN 24.9 PG (27.0-34.0); MEAN CORPUSCULAR HGB CONC 30.9 % (32.0-36.0); PLATELET COUNT 207 TH/MM3 (150-450); RED BLOOD COUNT 4.04 MIL/MM3 (4.50-5.90); RED CELL DISTRIBUTION WIDTH 16.7 % (11.6-17.2); WHITE BLOOD COUNT 7.7 TH/MM3 (4.0-11.0)
[2016-07-09 07:28] LABS: REVIEW FLAG AUTO DIFF
[2016-07-09 07:33] LABS: BLOOD UREA NITROGEN 9 MG/DL (7-18); CHLORIDE 90 MEQ/L (98-107); GLOMERULAR FILTRATION RATE 131 ML/MIN (>89); POTASSIUM 3.8 MEQ/L (3.5-5.1); SODIUM (NA) 137 MEQ/L (136-145)
[2016-07-09 07:36] LABS: ANION GAP 2 MEQ/L (5-15); BICARBONATE GREATER THAN 45.0 MEQ/L (21.0-32.0)
[2016-07-09] MEDS: FINASTERIDE 5 MG TAB PO SCH (08:18)
[2016-07-09] MEDS: AZITHROMYCIN 250 MG TAB PO SCH (08:18)
[2016-07-09] MEDS: FUROSEMIDE 40 MG/4 ML VIAL IV PUSH SCH ×2 (08:18→18:00)
[2016-07-09] MEDS: POTASSIUM CHLORIDE 20 MEQ CONTROLLED RELEASE TAB PO SCH ×2 (08:18→20:34)
[2016-07-09] MEDS: PRAVASTATIN SOD 20 MG TAB PO SCH (08:19)
[2016-07-09] MEDS: SODIUM CHLORIDE 0.9% FLUSH 5 ML FLUSH IVF SCH ×2 (08:19→20:50)
[2016-07-09] MEDS: APIXABAN 5 MG TABLET PO SCH ×2 (08:19→20:34)
--- NOTE | 2016-07-09 09:04 | EC ---
Study Study Date:07/08/2016 STUDY CONCLUSIONS SUMMARY - Left ventricle: The cavity size was normal. Wall thickness was normal. Systolic function was mildly reduced. The estimated ejection fraction was in the range of 45% to 50%. Regional wall motion abnormalities cannot be excluded. - Mitral valve: Mild regurgitation. - Left atrium: The atrium was moderately to severely dilated. - Right ventricle: The cavity size was severely dilated. Wall thickness was normal. Systolic function was moderately to severely reduced. Hypokinesis of the RV. - Right atrium: The atrium was severely dilated. - Tricuspid valve: Severe regurgitation. - Pulmonary arteries: PA peak pressure: 72mm Hg (S). Impressions: The right ventricular systolic pressure was increased consistent with severe pulmonary hypertension. If LV function is below 40, please consider prescribing an ACEI or ARB or document rationale for non-use. PROCEDURE DATA STUDY STATUS: Elective. Procedure: Transthoracic echocardiography. Image quality was good. Scanning was performed from the parasternal, apical, and subcostal acoustic windows. Study completion: The patient tolerated the procedure well. Transthoracic echocardiography. M-mode, complete 2D, complete spectral Doppler, and color Doppler. Patient status: Inpatient. CARDIAC ANATOMY LEFT VENTRICLE: The cavity size was normal. Wall thickness was normal. Systolic function was mildly reduced. The estimated ejection fraction was in the range of 45% to 50%. Regional wall motion abnormalities cannot be excluded. AORTIC VALVE: Trileaflet; mildly thickened leaflets. Doppler: Transvalvular velocity was within the normal range. There was no stenosis. No regurgitation. AORTA: Aortic root: The aortic root was normal in size. MITRAL VALVE: Structurally normal valve. Doppler: Transvalvular velocity was within the normal range. There was no evidence for stenosis. Mild regurgitation. Peak gradient: 5mm Hg (D). LEFT ATRIUM: The atrium was moderately to severely dilated. RIGHT VENTRICLE: The cavity size was severely dilated. Wall thickness was normal. Systolic function was moderately to severely reduced. Hypokinesis of the RV. PULMONIC VALVE: Doppler: Transvalvular velocity was within the normal range. There was no evidence for stenosis. No regurgitation. TRICUSPID VALVE: Structurally normal valve. Doppler: Transvalvular velocity was within the normal range. Severe regurgitation. PULMONARY ARTERY: The main pulmonary artery was normal-sized. Systolic pressure was within the normal range. RIGHT ATRIUM: The atrium was severely dilated. PERICARDIUM: There was no pericardial effusion. SYSTEMIC VEINS: Inferior vena cava: The vessel was normal in size. BASIC MEASUREMENTS ADULT Normal Left ventricle LV internal dimension, ED, chordal level, *55.6 mm 43-52 PLAX LV internal dimension, ES, chordal level, *45 mm 23-38 PLAX Fractional shortening, chordal level, PLAX *19 % >29 LV posterior wall thickness, ED 10.6 mm IVS/LVPW ratio, ED *1.3 <1.3 Ventricular septum Septal thickness, ED 13.8 mm Aortic valve Leaflet separation 21 mm 15-26 Left atrium Anterior-posterior dimension 53 mm Right ventricle RV internal dimension, ED, PLAX *58.5 mm 19-38 BASIC MEASUREMENTS ADULT Normal Aortic valve Leaflet separation 21 mm 15-26 Aorta Root diameter, ED 31 mm 20-37 DOPPLER MEASUREMENTS ADULT Normal Main pulmonary artery Pressure, S *72 mm Hg =30 Mitral valve Peak E-wave velocity 112 cm/s Peak gradient, D 5 mm Hg Tricuspid valve Regurgitant peak velocity 342 cm/s Peak RV-RA gradient, S 47 mm Hg Maximal regurgitant velocity 342 cm/s Systemic veins Estimated CVP 10 mm Hg Right ventricle RV pressure, S *72 mm Hg <30 LEGEND: Mean values are shown as u=mean value. Asterisk (*) chatman values outside specified normal range. Prepared and signed by Cam Ewing [id number]
[2016-07-09] MEDS: DILTIAZEM INJ 125 MG in SODIUM CHLORIDE 0.9% INJ 100 ML IV SCH (09:41)
[2016-07-09] MEDS: RESP: ALBUTEROL 2.5 MG/IPRATROPIUM 0.5 MG NEB (PRN) NEB (09:58)
--- NOTE | 2016-07-09 13:09 | HHI.PR ---
Subjective Remarks still some SOB with activity, but improve no cough no cp no fever Patient is asking about when he will go home Review of system for 10 point system otherwise unremarkable - Objective Objective Results - Vital Signs Date Time Temp Pulse Resp B/P Pulse Ox O2 Delivery O2 Flow Rate FiO2 07/09/16 10:00 97 Nasal Cannula 4.00 07/09/16 09:40 98.0 110 18 140/76 07/09/16 08:06 106 07/09/16 07:32 Nasal Cannula 2.00 07/09/16 06:00 90 07/09/16 05:00 90 07/09/16 04:00 94 07/09/16 04:00 98.4 99 20 130/78 92 07/09/16 04:00 98.4 92 20 138/78 92 07/09/16 03:00 89 07/09/16 02:00 87 07/09/16 01:00 96 07/09/16 00:00 112 07/09/16 00:00 98.2 91 20 138/77 91 07/09/16 00:00 98.2 91 20 138/77 91 07/08/16 23:00 119 07/08/16 21:00 103 07/08/16 20:00 103 07/08/16 20:00 93 4.00 07/08/16 20:00 98.6 103 22 130/81 93 07/08/16 20:00 98.6 103 22 130/81 93 07/08/16 17:22 98.0 102 20 128/84 98 07/08/16 16:01 98.0 100 18 130/78 96 07/08/16 13:55 106 18 128/78 96 I/O 07/08/16 07/08/16 07/08/16 07/09/16 07/09/16 07/09/16 07:00 15:00 23:00 07:00 15:00 23:00 Intake Total 240 ml 815 ml 429 ml Output Total 450 ml 1400 ml 2400 ml Balance -210 ml -585 ml -1971 ml Intake Oral 240 ml 720 ml 300 ml IV Total 95 ml 129 ml Output Urine Total 450 ml 1400 ml 2400 ml # Voids 6 # Bowel Movements 0 Result Diagram: 07/09/16 0614 07/09/16 0614 Imaging Last Impressions Chest X-Ray 07/05/16 1633 Signed Impressions: Service Date/Time: Tuesday, July 05, 2016 16:52 - CONCLUSION: Mild cardiomegaly with radiographically consistent with congestive heart failure. Freya Finley MD Other Results Laboratory Tests Test 07/09/16 07/09/16 06:14 06:17 White Blood Count 7.7 Red Blood Count 4.04 Hemoglobin 10.1 Hematocrit 32.7 Mean Corpuscular Volume 80.8 Mean Corpuscular Hemoglobin 24.9 Mean Corpuscular Hemoglobin 30.9 Concent Red Cell Distribution Width 16.7 Platelet Count 207 Mean Platelet Volume 7.2 Sodium Level 137 Potassium Level 3.8 Chloride Level 90 Carbon Dioxide Level GREATER THAN 45.0 Anion Gap 2 Blood Urea Nitrogen 9 Creatinine 0.60 Estimat Glomerular Filtration 131 Rate Random Glucose 123 Calcium Level 8.6 B-Type Natriuretic Peptide 307 Physical Exam Physical Exam GENERAL: This is a well-nourished, obese male. SKIN: Chronic venous discoloration to both lower extremities, skin warm and dry. HEAD: Atraumatic. Normocephalic. No temporal or scalp tenderness. EYES: Pupils equal round and reactive. Extraocular motions intact. No scleral icterus. No injection or drainage. ENT: Airway patent. NECK: Trachea midline. Supple, nontender, no meningeal signs. CARDIOVASCULAR: S1-S2, irregularly irregular, without murmurs, gallops, or rubs. Bilateral lower extremities with 2+ pitting edema from below knee down to feet, difficult to palpate pedal pulses. RESPIRATORY: Occasional Faint bibasilar Rales, mild expiratory wheezing bibasally. GASTROINTESTINAL: Abdomen soft, non-tender, nondistended. Flank edema. Unable to palpate organomegaly due to body habitus. No guarding. MUSCULOSKELETAL: No joint tenderness, effusion, or edema noted. No calf tenderness. Negative Homans sign bilaterally. NEUROLOGICAL: Awake and alert. Cranial nerves II through XII intact. Motor and sensory grossly within normal limits. Five out of 5 muscle strength in all muscle groups. Normal speech. Urinary Catheter: No Vascular Central Line Catheter: No A/P Assessment and Plan (1) CHF exacerbation (2) Atrial fibrillation (3) Hyperlipidemia (4) Hypertension (5) Obesity Plan 76-year-old white male with significant past medical history of A. fib, hypertension, CHF, chronic peripheral edema. Came to emergency room complaining of ongoing dyspnea with exertion worsening over the last couple of weeks, orthopnea, increased lower extremity edema, hypoxia. Pt. was found in acute congestive heart failure. -Continuous cardiac telemetry Continue with Lasix 40 mg IV twice a day -Appreciate card input, evaluated per Dr. Poon, recommends to continue IV diuresis Heart healthy diet with 1500 cc fluid restriction Discussed with patient need to comply with diet, avoid beer-verbalizes understanding, agreeable -Strict intake and output 2D echo report reviewed EF of 45-50% with severe TR Chronic atrial fibrillation, occ. episodes of RVR Continue Cardizem drip discussed with RN to taper if possible. Was on Verapamil-inc. to [address] Poon Continue Eliquis Cough with sputum production, ongoing, with mild wheezing -DuoNeb's when necessary Empiric antibiotics -Tessalon Hypertension -Continue home medications Hyperlipidemia Continue home medications BPH Continue home meds Continue with Eliquis for DVT prophylaxis PT for eval and tx Labs reviewed increased BNP, labs for tomorrow D/W RN D/W pt. Corey Saunders MD Jul 09, 2016 13:09
[2016-07-09] MEDS: BENZONATATE 100 MG CAP PO PRN ×2 (15:40→22:06)
--- NOTE | 2016-07-09 15:58 | PD.CARD.PN ---
Subjective Subjective Remarks no overnight events no complaints still in the Dilt drip. HR better control. Objective Medications Current Medications Medications (Trade) Dose Ordered Sig/Clark Route Start Time Stop Time Status Last Admin (NS Flush) 2 ml UNSCH PRN IVF 07/05/16 21:00 07/07/16 17:12 (NS Flush) 2 ml BID IVF 07/05/16 21:00 07/08/16 08:30 (Zofran Inj) 4 mg Q6H PRN IVP 07/05/16 21:00 (Senokot) 17.2 mg Q12H PRN PO 07/05/16 21:00 (Tylenol) 650 mg Q6H PRN PO 07/05/16 21:00 (Eliquis) 5 mg BID PO 07/06/16 09:00 07/09/16 08:19 (Proscar) 5 mg DAILY PO 07/06/16 09:00 07/09/16 08:18 (KCl) 20 meq BID PO 07/06/16 09:00 07/09/16 08:18 (Flomax) 0.4 mg HS PO 07/06/16 21:00 07/08/16 21:49 (Pravachol) 20 mg DAILY PO 07/06/16 09:00 07/09/16 08:19 (Tessalon) 200 mg TID PRN PO 07/06/16 08:15 07/09/16 15:40 (Zithromax) 500 mg Q24H PO 07/06/16 10:00 07/09/16 08:18 (Chapstick) 1 applic UNSCH PRN TOP 07/07/16 15:15 Furosemide 40 mg 40 mg BID@09,18 IV PUSH 07/07/16 18:00 07/09/16 08:18 (Cardizem Inj/NS Inj) 125 ml @ 0 mls/hr TITRATE IV 07/08/16 10:00 07/09/16 09:41 Vital Signs / I&O Vital Signs Date Time Temp Pulse Resp B/P Pulse Ox O2 Delivery O2 Flow Rate FiO2 07/09/16 13:37 98.0 98 18 138/74 95 07/09/16 10:00 97 Nasal Cannula 4.00 07/09/16 09:40 98.0 110 18 140/76 07/09/16 08:06 106 07/09/16 07:32 Nasal Cannula 2.00 07/09/16 06:00 90 07/09/16 05:00 90 07/09/16 04:00 94 07/09/16 04:00 98.4 99 20 130/78 92 07/09/16 04:00 98.4 92 20 138/78 92 07/09/16 03:00 89 07/09/16 02:00 87 07/09/16 01:00 96 07/09/16 00:00 112 07/09/16 00:00 98.2 91 20 138/77 91 07/09/16 00:00 98.2 91 20 138/77 91 07/08/16 23:00 119 07/08/16 21:00 103 07/08/16 20:00 103 07/08/16 20:00 93 4.00 07/08/16 20:00 98.6 103 22 130/81 93 07/08/16 20:00 98.6 103 22 130/81 93 07/08/16 17:22 98.0 102 20 128/84 98 07/08/16 16:01 98.0 100 18 130/78 96 I/O 07/08/16 07/08/16 07/08/16 07/09/16 07/09/16 07/09/16 07:00 15:00 23:00 07:00 15:00 23:00 Intake Total 240 ml 815 ml 429 ml Output Total 450 ml 1400 ml 2400 ml Balance -210 ml -585 ml -1971 ml Intake Oral 240 ml 720 ml 300 ml IV Total 95 ml 129 ml Output Urine Total 450 ml 1400 ml 2400 ml # Voids 6 # Bowel Movements 0 Physical Exam GENERAL: Well-nourished, well-developed patient. SKIN: Warm and dry. HEAD: Normocephalic. EYES: No scleral icterus. No injection or drainage. NECK: Supple, trachea midline. No JVD or lymphadenopathy. CARDIOVASCULAR: IRR IRR no murmurs, gallops, or rubs. RESPIRATORY: Breath sounds equal bilaterally. No accessory muscle use. GASTROINTESTINAL: Abdomen soft, non-tender, nondistended, obese EXTREMITIES: No cyanosis, +2 edema. NEUROLOGICAL: Awake, alert, and oriented x 3. Non-focal. Laboratory Laboratory Tests Test 07/09/16 07/09/16 06:14 06:17 White Blood Count 7.7 TH/MM3 Red Blood Count 4.04 MIL/MM3 Hemoglobin 10.1 GM/DL Hematocrit 32.7 % Mean Corpuscular Volume 80.8 FL Mean Corpuscular Hemoglobin 24.9 PG Mean Corpuscular Hemoglobin 30.9 % Concent Red Cell Distribution Width 16.7 % Platelet Count 207 TH/MM3 Mean Platelet Volume 7.2 FL Sodium Level 137 MEQ/L Potassium Level 3.8 MEQ/L Chloride Level 90 MEQ/L Carbon Dioxide Level GREATER THAN 45.0 MEQ/L Anion Gap 2 MEQ/L Blood Urea Nitrogen 9 MG/DL Creatinine 0.60 MG/DL Estimat Glomerular Filtration 131 ML/MIN Rate Random Glucose 123 MG/DL Calcium Level 8.6 MG/DL B-Type Natriuretic Peptide 307 PG/ML Imaging Last Impressions Chest X-Ray 07/05/16 1633 Signed Impressions: Service Date/Time: Tuesday, July 05, 2016 16:52 - CONCLUSION: Mild cardiomegaly with radiographically consistent with congestive heart failure. Freya Finley MD Assessment and Plan Problem List: (1) Atrial fibrillation Assessment and Plan: Wean Dilt drip as tolerate by HR Start Diltiazem 60mg PO QID Cont IV diuresis Strict I&O Daily weight Encourage OOB (2) CHF exacerbation (3) Hyperlipidemia (4) Hypertension (5) Obesity Problem Qualifiers (1) Atrial fibrillation: Qualified Code: I48.2 - Chronic atrial fibrillation (2) CHF exacerbation: Qualified Code: I50.9 - Acute on chronic congestive heart failure, unspecified congestive heart failure type (3) Hyperlipidemia: Qualified Code: E78.5 - Hyperlipidemia, unspecified hyperlipidemia type (4) Hypertension: Qualified Code: I10 - Essential hypertension (5) Obesity: Qualified Code: E66.9 - Obesity, unspecified obesity severity, unspecified obesity type Cam Ewing MD Jul 09, 2016 15:58
[2016-07-09] MEDS ORDERED: DILTIAZEM HCL 30 MG TAB PO SCH (18:00)
[2016-07-09] MEDS: DILTIAZEM HCL 60 MG TAB PO SCH ×2 (18:00→20:34)
[2016-07-09] MEDS: TAMSULOSIN HCL 0.4 MG CAP PO SCH (20:34)
[2016-07-10] VITALS (26 sets, daily range): BP systolic 126–156; BP diastolic 72–99; PULSE 85–131; RESP 18–22; TEMP 98–99.1; O2SAT 90–96
[2016-07-10 04:51] LABS: BICARBONATE 43.2 MEQ/L (21.0-32.0); POTASSIUM 3.6 MEQ/L (3.5-5.1)
[2016-07-10] MEDS: SODIUM CHLORIDE 0.9% FLUSH 5 ML FLUSH IVF SCH ×2 (09:28→21:11)
[2016-07-10] MEDS: APIXABAN 5 MG TABLET PO SCH ×2 (09:29→21:12)
[2016-07-10] MEDS: AZITHROMYCIN 250 MG TAB PO SCH (09:29)
[2016-07-10] MEDS: DILTIAZEM HCL 60 MG TAB PO SCH (09:29)
[2016-07-10] MEDS: FINASTERIDE 5 MG TAB PO SCH (09:29)
[2016-07-10] MEDS: POTASSIUM CHLORIDE 20 MEQ CONTROLLED RELEASE TAB PO SCH ×2 (09:29→21:12)
[2016-07-10] MEDS: FUROSEMIDE 40 MG/4 ML VIAL IV PUSH SCH ×2 (09:29→17:20)
[2016-07-10] MEDS: PRAVASTATIN SOD 20 MG TAB PO SCH (09:29)
--- NOTE | 2016-07-10 10:21 | PD.CARD.PN ---
Subjective Subjective Remarks Rates mildly fast, no complaints. Objective Medications Administered Medications Medications (Trade) Dose Ordered Sig/Clark Route PRN Reason Start Time Stop Time Status Last Admin Dose Admin IV Flush (NS Flush) 2 ml UNSCH PRN IVF FLUSH AFTER USING IV ACCESS 07/05/16 21:00 07/07/16 17:12 IV Flush (NS Flush) 2 ml BID IVF 07/05/16 21:00 07/10/16 09:28 Apixaban (Eliquis) 5 mg BID PO 07/06/16 09:00 07/10/16 09:29 Finasteride (Proscar) 5 mg DAILY PO 07/06/16 09:00 07/10/16 09:29 Potassium Chloride (KCl) 20 meq BID PO 07/06/16 09:00 07/10/16 09:29 Tamsulosin HCl (Flomax) 0.4 mg HS PO 07/06/16 21:00 07/09/16 20:34 Pravastatin Sodium (Pravachol) 20 mg DAILY PO CM 07/06/16 09:00 07/10/16 09:29 Benzonatate (Tessalon) 200 mg TID PRN PO cough 07/06/16 08:15 07/09/16 22:06 Azithromycin (Zithromax) 500 mg Q24H PO 07/06/16 10:00 07/10/16 09:29 Furosemide (Lasix Inj) 40 mg BID@09,18 IV PUSH 07/07/16 18:00 07/10/16 09:29 Vital Signs / I&O Vital Signs Date Time Temp Pulse Resp B/P Pulse Ox O2 Delivery O2 Flow Rate FiO2 07/10/16 10:00 131 07/10/16 09:31 120 07/10/16 08:00 109 07/10/16 07:00 98.8 109 20 131/99 94 07/10/16 07:00 94 Nasal Cannula 4.00 07/10/16 07:00 92 07/10/16 06:00 110 07/10/16 04:11 98.0 96 22 151/84 96 07/10/16 04:00 104 07/10/16 03:00 106 07/10/16 02:00 108 07/10/16 01:00 106 07/10/16 00:00 98.4 96 22 156/89 95 07/10/16 00:00 105 07/09/16 23:00 105 07/09/16 22:00 104 07/09/16 21:00 102 07/09/16 20:00 98.4 101 22 132/70 93 07/09/16 20:00 100 07/09/16 19:01 95 Nasal Cannula 2.00 07/09/16 19:00 92 07/09/16 17:42 96 Nasal Cannula 4.00 07/09/16 16:46 98.0 94 20 150/68 96 07/09/16 13:37 98.0 98 18 138/74 95 I/O 07/09/16 07/09/16 07/09/16 07/10/16 07/10/16 07/10/16 07:00 15:00 23:00 07:00 15:00 23:00 Intake Total 429 ml 0 ml Output Total 2400 ml 200 ml 900 ml Balance -1971 ml -200 ml -900 ml Intake Oral 300 ml 0 ml IV Total 129 ml Output Urine Total 2400 ml 200 ml 900 ml Physical Exam GENERAL: This is a well-nourished, well-developed patient, in no apparent distress. CARDIOVASCULAR: Mildly rapid rate and irregular rhythm without murmurs, gallops , or rubs. RESPIRATORY: Clear to auscultation. Breath sounds equal bilaterally. No wheezes , rales, or rhonchi. GASTROINTESTINAL: Abdomen soft, non-tender, nondistended. Normal, active bowel sounds MUSCULOSKELETAL: 2+ chronic appearing LE edema NEURO: grossly oriented but nursing reports he has bouts of confusion Laboratory Laboratory Tests Test 07/10/16 04:02 Sodium Level 138 MEQ/L Potassium Level 3.6 MEQ/L Chloride Level 90 MEQ/L Carbon Dioxide Level 43.2 MEQ/L Anion Gap 5 MEQ/L Blood Urea Nitrogen 8 MG/DL Creatinine 0.47 MG/DL Estimat Glomerular Filtration 174 ML/MIN Rate Random Glucose 119 MG/DL Calcium Level 8.3 MG/DL B-Type Natriuretic Peptide 278 PG/ML Imaging Last Impressions Chest X-Ray 07/05/16 1633 Signed Impressions: Service Date/Time: Tuesday, July 05, 2016 16:52 - CONCLUSION: Mild cardiomegaly with radiographically consistent with congestive heart failure. Freya Finley MD Assessment and Plan Problem List: (1) Atrial fibrillation Assessment and Plan: Increase Diltiazem to 90mg PO QID Cont IV diuresis Strict I&O Daily weight Encourage OOB (2) CHF exacerbation (3) Hyperlipidemia (4) Hypertension (5) Obesity Problem Qualifiers (1) Atrial fibrillation: Qualified Code: I48.2 - Chronic atrial fibrillation (2) CHF exacerbation: Qualified Code: I50.9 - Acute on chronic congestive heart failure, unspecified congestive heart failure type (3) Hyperlipidemia: Qualified Code: E78.5 - Hyperlipidemia, unspecified hyperlipidemia type (4) Hypertension: Qualified Code: I10 - Essential hypertension (5) Obesity: Qualified Code: E66.9 - Obesity, unspecified obesity severity, unspecified obesity type Severino Dorsey MD Jul 10, 2016 10:21
[2016-07-10] MEDS: RESP: ALBUTEROL 2.5 MG/IPRATROPIUM 0.5 MG NEB (PRN) NEB (12:50)
--- NOTE | 2016-07-10 13:07 | HHI.PR ---
Subjective Remarks still sometimes SOB with activity, but improve no cough no cp no fever Review of system for 10 point system otherwise unremarkable - Objective Objective Results - Vital Signs Date Time Temp Pulse Resp B/P Pulse Ox O2 Delivery O2 Flow Rate FiO2 07/10/16 12:50 90 Nasal Cannula 4.00 07/10/16 12:00 104 07/10/16 11:00 110 07/10/16 11:00 99.1 105 20 126/77 95 07/10/16 11:00 95 Nasal Cannula 4.00 07/10/16 10:00 131 07/10/16 09:31 120 07/10/16 08:00 109 07/10/16 07:00 98.8 109 20 131/99 94 07/10/16 07:00 94 Nasal Cannula 4.00 07/10/16 07:00 92 07/10/16 06:00 110 07/10/16 04:11 98.0 96 22 151/84 96 07/10/16 04:00 104 07/10/16 03:00 106 07/10/16 02:00 108 07/10/16 01:00 106 07/10/16 00:00 98.4 96 22 156/89 95 07/10/16 00:00 105 07/09/16 23:00 105 07/09/16 22:00 104 07/09/16 21:00 102 07/09/16 20:00 98.4 101 22 132/70 93 07/09/16 20:00 100 07/09/16 19:01 95 Nasal Cannula 2.00 07/09/16 19:00 92 07/09/16 17:42 96 Nasal Cannula 4.00 07/09/16 16:46 98.0 94 20 150/68 96 07/09/16 13:37 98.0 98 18 138/74 95 I/O 07/09/16 07/09/16 07/09/16 07/10/16 07/10/16 07/10/16 06:59 14:59 22:59 06:59 14:59 22:59 Intake Total 429 ml 0 ml Output Total 2400 ml 200 ml 900 ml Balance -1971 ml -200 ml -900 ml Intake Oral 300 ml 0 ml IV Total 129 ml Output Urine Total 2400 ml 200 ml 900 ml Result Diagram: 07/09/16 0614 07/10/16 0402 Imaging Last Impressions Chest X-Ray 07/05/16 1633 Signed Impressions: Service Date/Time: Tuesday, July 05, 2016 16:52 - CONCLUSION: Mild cardiomegaly with radiographically consistent with congestive heart failure. Freya Finley MD Other Results Laboratory Tests Test 07/10/16 04:02 Sodium Level 138 Potassium Level 3.6 Chloride Level 90 Carbon Dioxide Level 43.2 Anion Gap 5 Blood Urea Nitrogen 8 Creatinine 0.47 Estimat Glomerular Filtration 174 Rate Random Glucose 119 Calcium Level 8.3 B-Type Natriuretic Peptide 278 Physical Exam Physical Exam GENERAL: This is a well-nourished, obese male. SKIN: Chronic venous discoloration to both lower extremities, skin warm and dry. HEAD: Atraumatic. Normocephalic. No temporal or scalp tenderness. EYES: Pupils equal round and reactive. Extraocular motions intact. No scleral icterus. No injection or drainage. ENT: Airway patent. NECK: Trachea midline. Supple, nontender, no meningeal signs. CARDIOVASCULAR: S1-S2, irregularly irregular, without murmurs, gallops, or rubs. Bilateral lower extremities with 2+ pitting edema from below knee down to feet, difficult to palpate pedal pulses. RESPIRATORY: Occasional Faint bibasilar Rales, no wheezing. GASTROINTESTINAL: Abdomen soft, non-tender, nondistended. Flank edema. Unable to palpate organomegaly due to body habitus. No guarding. MUSCULOSKELETAL: No joint tenderness, effusion, or edema noted. No calf tenderness. Negative Homans sign bilaterally. NEUROLOGICAL: Awake and alert. Cranial nerves II through XII intact. Motor and sensory grossly within normal limits. Five out of 5 muscle strength in all muscle groups. Normal speech. Urinary Catheter: No Vascular Central Line Catheter: No A/P Assessment and Plan (1) CHF exacerbation (2) Atrial fibrillation (3) Hyperlipidemia (4) Hypertension (5) Obesity Plan 76-year-old white male with significant past medical history of A. fib, hypertension, CHF, chronic peripheral edema. Came to emergency room complaining of ongoing dyspnea with exertion worsening over the last couple of weeks, orthopnea, increased lower extremity edema, hypoxia. Pt. was found in acute congestive heart failure. -Continuous cardiac telemetry Continue with Lasix 40 mg IV twice a day -Appreciate card input, Heart healthy diet with 1500 cc fluid restriction Discussed with patient need to comply with diet, avoid beer-verbalizes understanding, agreeable -Strict intake and output 2D echo report reviewed EF of 45-50% with severe TR Chronic atrial fibrillation, occ. episodes of RVR On Cardizem by mouth 90 mg 4 times a day Continue Eliquis Cough with sputum production, ongoing, with mild wheezing -DuoNeb's when necessary Empiric antibiotics -Tessalon Hypertension -Continue home medications Hyperlipidemia Continue home medications BPH Continue home meds Continue with Eliquis for DVT prophylaxis PT for eval and tx Labs reviewed increased BNP, labs for tomorrow D/W pt. Corey Saunders MD Jul 10, 2016 13:07
[2016-07-10] MEDS: DILTIAZEM HCL 90 MG TAB PO SCH ×3 (13:14→21:12)
[2016-07-10] MEDS: TAMSULOSIN HCL 0.4 MG CAP PO SCH (21:12)
[2016-07-10] MEDS: BENZONATATE 100 MG CAP PO PRN (21:14)
[2016-07-11] VITALS (27 sets, daily range): BP systolic 105–136; BP diastolic 64–78; PULSE 63–123; RESP 18–20; TEMP 97.8–99.2; O2SAT 93–96
[2016-07-11 05:37] LABS: BICARBONATE 44.2 MEQ/L (21.0-32.0); POTASSIUM 3.4 MEQ/L (3.5-5.1)
[2016-07-11] MEDS: SODIUM CHLORIDE 0.9% FLUSH 5 ML FLUSH IVF SCH ×2 (09:31→20:43)
[2016-07-11] MEDS: FUROSEMIDE 40 MG/4 ML VIAL IV PUSH SCH ×2 (09:31→16:55)
[2016-07-11] MEDS: FINASTERIDE 5 MG TAB PO SCH (09:33)
[2016-07-11] MEDS: DILTIAZEM HCL 90 MG TAB PO SCH ×4 (09:33→20:44)
[2016-07-11] MEDS: POTASSIUM CHLORIDE 20 MEQ CONTROLLED RELEASE TAB PO SCH ×2 (09:33→20:44)
[2016-07-11] MEDS: AZITHROMYCIN 250 MG TAB PO SCH (09:33)
[2016-07-11] MEDS: BENZONATATE 100 MG CAP PO PRN (09:34)
[2016-07-11] MEDS: PRAVASTATIN SOD 20 MG TAB PO SCH (09:34)
[2016-07-11] MEDS: APIXABAN 5 MG TABLET PO SCH ×2 (09:34→20:44)
--- NOTE | 2016-07-11 10:09 | PD.CARD.PN ---
Subjective Subjective Remarks Pt feels well, still mildly fast afib on tele, he denies cardiac complaints. Objective Medications Administered Medications Medications (Trade) Dose Ordered Sig/Clark Route PRN Reason Start Time Stop Time Status Last Admin Dose Admin IV Flush (NS Flush) 2 ml UNSCH PRN IVF FLUSH AFTER USING IV ACCESS 07/05/16 21:00 07/07/16 17:12 IV Flush (NS Flush) 2 ml BID IVF 07/05/16 21:00 07/11/16 09:31 Apixaban (Eliquis) 5 mg BID PO 07/06/16 09:00 07/11/16 09:34 Finasteride (Proscar) 5 mg DAILY PO 07/06/16 09:00 07/11/16 09:33 Potassium Chloride (KCl) 20 meq BID PO 07/06/16 09:00 07/11/16 09:33 Tamsulosin HCl (Flomax) 0.4 mg HS PO 07/06/16 21:00 07/10/16 21:12 Pravastatin Sodium (Pravachol) 20 mg DAILY PO CM 07/06/16 09:00 07/11/16 09:34 Benzonatate (Tessalon) 200 mg TID PRN PO cough 07/06/16 08:15 07/11/16 09:34 Azithromycin (Zithromax) 500 mg Q24H PO 07/06/16 10:00 07/11/16 09:33 Furosemide (Lasix Inj) 40 mg BID@09,18 IV PUSH 07/07/16 18:00 07/11/16 09:31 Diltiazem HCl (Cardizem) 90 mg QID PO 07/10/16 13:00 07/11/16 09:33 Vital Signs / I&O Vital Signs Date Time Temp Pulse Resp B/P Pulse Ox O2 Delivery O2 Flow Rate FiO2 07/11/16 09:00 108 07/11/16 08:00 93 07/11/16 07:00 94 Nasal Cannula 4.00 07/11/16 07:00 106 07/11/16 07:00 98.1 107 18 136/78 94 07/11/16 06:00 95 07/11/16 05:00 91 07/11/16 04:00 86 07/11/16 03:30 94 Nasal Cannula 4.00 07/11/16 03:30 97.9 95 18 126/77 94 07/11/16 03:00 92 07/11/16 02:00 89 07/11/16 01:00 93 07/11/16 00:00 93 07/10/16 23:30 92 Nasal Cannula 4.00 07/10/16 23:30 98.8 87 18 141/86 92 07/10/16 23:00 90 07/10/16 22:00 95 07/10/16 21:00 107 07/10/16 20:00 98.6 87 20 128/87 96 07/10/16 20:00 100 07/10/16 20:00 96 Nasal Cannula 4.00 07/10/16 19:00 94 07/10/16 18:00 111 07/10/16 17:00 88 07/10/16 16:00 85 07/10/16 15:00 95 Nasal Cannula 4.00 07/10/16 15:00 98.5 104 18 128/72 95 07/10/16 15:00 110 07/10/16 14:00 94 07/10/16 13:00 119 07/10/16 12:50 90 Nasal Cannula 4.00 07/10/16 12:00 104 07/10/16 11:00 110 07/10/16 11:00 99.1 105 20 126/77 95 07/10/16 11:00 95 Nasal Cannula 4.00 I/O 07/10/16 07/10/16 07/10/16 07/11/16 07/11/16 07/11/16 07:00 15:00 23:00 07:00 15:00 23:00 Intake Total 0 ml 720 ml 240 ml Output Total 900 ml 675 ml 1975 ml Balance -900 ml 45 ml -1735 ml Intake Oral 0 ml 720 ml 240 ml Output Urine Total 900 ml 675 ml 1975 ml # Bowel Movements 0 Physical Exam GENERAL: This is a well-nourished, well-developed patient, in no apparent distress. CARDIOVASCULAR: Mildly rapid rate and irregular rhythm without murmurs, gallops , or rubs. RESPIRATORY: Clear to auscultation. Breath sounds equal bilaterally. No wheezes , rales, or rhonchi. GASTROINTESTINAL: Abdomen soft, non-tender, nondistended. Normal, active bowel sounds MUSCULOSKELETAL: 1-2+ chronic appearing LE edema NEURO: grossly oriented but nursing reports he has bouts of confusion Laboratory Laboratory Tests Test 07/11/16 04:27 Sodium Level 137 MEQ/L Potassium Level 3.4 MEQ/L Chloride Level 88 MEQ/L Carbon Dioxide Level 44.2 MEQ/L Anion Gap 5 MEQ/L Blood Urea Nitrogen 8 MG/DL Creatinine 0.52 MG/DL Estimat Glomerular Filtration 155 ML/MIN Rate Random Glucose 108 MG/DL Calcium Level 8.4 MG/DL Imaging Last Impressions Chest X-Ray 07/05/16 1633 Signed Impressions: Service Date/Time: Tuesday, July 05, 2016 16:52 - CONCLUSION: Mild cardiomegaly with radiographically consistent with congestive heart failure. Freya Finley MD Assessment and Plan Problem List: (1) Atrial fibrillation Assessment and Plan: added metoprolol to his Diltiazem to 90mg PO QID change to PO lasix tomorrow. Strict I&O Daily weight Encourage OOB (2) CHF exacerbation Assessment and Plan: Improving, cr bumped slightly, will change to PO lasix for tomorrow. (3) Hyperlipidemia (4) Hypertension (5) Obesity Assessment and Plan Dr. Poon will resume care in the AM. Problem Qualifiers (1) Atrial fibrillation: Qualified Code: I48.2 - Chronic atrial fibrillation (2) CHF exacerbation: Qualified Code: I50.9 - Acute on chronic congestive heart failure, unspecified congestive heart failure type (3) Hyperlipidemia: Qualified Code: E78.5 - Hyperlipidemia, unspecified hyperlipidemia type (4) Hypertension: Qualified Code: I10 - Essential hypertension (5) Obesity: Qualified Code: E66.9 - Obesity, unspecified obesity severity, unspecified obesity type Severino Dorsey MD Jul 11, 2016 10:09
[2016-07-11] MEDS ORDERED: POTASSIUM CHLORIDE 20 MEQ CONTROLLED RELEASE TAB PO ONE (10:15)
[2016-07-11] MEDS: METOPROLOL TARTRATE 50 MG TAB PO SCH ×2 (12:01→20:44)
--- NOTE | 2016-07-11 14:03 | HHI.PR ---
Subjective Remarks still sometimes SOB with activity, but improved no cough no cp no fever Review of system for 10 point system otherwise unremarkable - Objective Objective Results - Vital Signs Date Time Temp Pulse Resp B/P Pulse Ox O2 Delivery O2 Flow Rate FiO2 07/11/16 13:00 95 07/11/16 12:00 101 07/11/16 11:00 106 07/11/16 11:00 99.2 92 20 105/64 96 07/11/16 11:00 94 Nasal Cannula 4.00 07/11/16 10:00 123 07/11/16 09:00 108 07/11/16 08:00 93 07/11/16 07:00 94 Nasal Cannula 4.00 07/11/16 07:00 106 07/11/16 07:00 98.1 107 18 136/78 94 07/11/16 06:00 95 07/11/16 05:00 91 07/11/16 04:00 86 07/11/16 03:30 94 Nasal Cannula 4.00 07/11/16 03:30 97.9 95 18 126/77 94 07/11/16 03:00 92 07/11/16 02:00 89 07/11/16 01:00 93 07/11/16 00:00 93 07/10/16 23:30 92 Nasal Cannula 4.00 07/10/16 23:30 98.8 87 18 141/86 92 07/10/16 23:00 90 07/10/16 22:00 95 07/10/16 21:00 107 07/10/16 20:00 98.6 87 20 128/87 96 07/10/16 20:00 100 07/10/16 20:00 96 Nasal Cannula 4.00 07/10/16 19:00 94 07/10/16 18:00 111 07/10/16 17:00 88 07/10/16 16:00 85 07/10/16 15:00 95 Nasal Cannula 4.00 07/10/16 15:00 98.5 104 18 128/72 95 07/10/16 15:00 110 I/O 07/10/16 07/10/16 07/10/16 07/11/16 07/11/16 07/11/16 07:00 15:00 23:00 07:00 15:00 23:00 Intake Total 0 ml 720 ml 240 ml Output Total 900 ml 675 ml 1975 ml Balance -900 ml 45 ml -1735 ml Intake Oral 0 ml 720 ml 240 ml Output Urine Total 900 ml 675 ml 1975 ml # Bowel Movements 0 Result Diagram: 07/09/16 0614 07/11/16 0427 Imaging Last Impressions Chest X-Ray 07/05/16 1633 Signed Impressions: Service Date/Time: Tuesday, July 05, 2016 16:52 - CONCLUSION: Mild cardiomegaly with radiographically consistent with congestive heart failure. Freya Finley MD Other Results Laboratory Tests Test 07/11/16 04:27 Sodium Level 137 Potassium Level 3.4 Chloride Level 88 Carbon Dioxide Level 44.2 Anion Gap 5 Blood Urea Nitrogen 8 Creatinine 0.52 Estimat Glomerular Filtration 155 Rate Random Glucose 108 Calcium Level 8.4 Physical Exam Physical Exam GENERAL: This is a well-nourished, obese male. SKIN: Chronic venous discoloration to both lower extremities, skin warm and dry. Thick lower extremities can at leg area HEAD: Atraumatic. Normocephalic. No temporal or scalp tenderness. EYES: Pupils equal round and reactive. Extraocular motions intact. No scleral icterus. No injection or drainage. ENT: Airway patent. NECK: Trachea midline. Supple, nontender, no meningeal signs. CARDIOVASCULAR: S1-S2, irregularly irregular, without murmurs, gallops, or rubs. Bilateral lower extremities with 2+ pitting edema from below knee down to feet, difficult to palpate pedal pulses. RESPIRATORY: Occasional Faint bibasilar Rales, no wheezing. GASTROINTESTINAL: Abdomen soft, non-tender, nondistended. Flank edema. Unable to palpate organomegaly due to body habitus. No guarding. MUSCULOSKELETAL: No joint tenderness, effusion, or edema noted. No calf tenderness. Negative Homans sign bilaterally. NEUROLOGICAL: Awake and alert. Cranial nerves II through XII intact. Motor and sensory grossly within normal limits. Five out of 5 muscle strength in all muscle groups. Normal speech. Urinary Catheter: No Vascular Central Line Catheter: No A/P Assessment and Plan (1) CHF exacerbation (2) Atrial fibrillation (3) Hyperlipidemia (4) Hypertension (5) Obesity Plan 76-year-old white male with significant past medical history of A. fib, hypertension, CHF, chronic peripheral edema. Came to emergency room complaining of ongoing dyspnea with exertion worsening over the last couple of weeks, orthopnea, increased lower extremity edema, hypoxia. Pt. was found in acute congestive heart failure. -Continuous cardiac telemetry Lasix 40 mg IV twice a day as per cardiology switch to by mouth tomorrow -Appreciate card input, Heart healthy diet with 1500 cc fluid restriction Discussed with patient need to comply with diet, avoid beer-verbalizes understanding, agreeable -Strict intake and output 2D echo report reviewed EF of 45-50% with severe TR Chronic atrial fibrillation, occ. episodes of RVR On Cardizem by mouth 90 mg 4 times a day Continue Eliquis Cough with sputum production, ongoing, with mild wheezing -DuoNeb's when necessary Empiric antibiotics -Tessalon Hypertension -Continue home medications Hyperlipidemia Continue home medications BPH Continue home meds Continue with Eliquis for DVT prophylaxis PT for eval and tx Labs reviewed increased BNP, labs for tomorrow D/W pt. Corey Saunders MD Jul 11, 2016 14:03
[2016-07-11] MEDS: ACETAMINOPHEN 325 MG TAB PO PRN ×2 (16:54→23:20)
[2016-07-11] MEDS: TAMSULOSIN HCL 0.4 MG CAP PO SCH (20:44)
[2016-07-12] VITALS (24 sets, daily range): BP systolic 114–145; BP diastolic 68–87; PULSE 76–108; RESP 14–24; TEMP 97.5–98.6; O2SAT 92–97
[2016-07-12 07:06] LABS: BLOOD UREA NITROGEN 11 MG/DL (7-18); CHLORIDE 90 MEQ/L (98-107); GLOMERULAR FILTRATION RATE 118 ML/MIN (>89); POTASSIUM 3.7 MEQ/L (3.5-5.1); SODIUM (NA) 138 MEQ/L (136-145)
[2016-07-12 07:18] LABS: ANION GAP 3 MEQ/L (5-15); BICARBONATE GREATER THAN 45.0 MEQ/L (21.0-32.0)
[2016-07-12] MEDS: FINASTERIDE 5 MG TAB PO SCH (08:42)
[2016-07-12] MEDS: POTASSIUM CHLORIDE 20 MEQ CONTROLLED RELEASE TAB PO SCH ×2 (08:42→20:39)
[2016-07-12] MEDS: APIXABAN 5 MG TABLET PO SCH ×2 (08:42→20:39)
[2016-07-12] MEDS: METOPROLOL TARTRATE 50 MG TAB PO SCH ×2 (08:42→20:38)
[2016-07-12] MEDS: DILTIAZEM HCL 90 MG TAB PO SCH ×4 (08:42→20:38)
[2016-07-12] MEDS: PRAVASTATIN SOD 20 MG TAB PO SCH (08:42)
[2016-07-12] MEDS: FUROSEMIDE 40 MG TAB PO SCH (08:42)
[2016-07-12] MEDS: SODIUM CHLORIDE 0.9% FLUSH 5 ML FLUSH IVF SCH ×2 (08:43→20:39)
[2016-07-12] MEDS: AZITHROMYCIN 250 MG TAB PO SCH (08:45)
--- NOTE | 2016-07-12 11:23 | PD.CARD.PN ---
Subjective Subjective Remarks no complaints no overnight events off cardizem drip afib rate controlled Objective Medications Current Medications Medications (Trade) Dose Ordered Sig/Clark Route Start Time Stop Time Status Last Admin (NS Flush) 2 ml UNSCH PRN IVF 07/05/16 21:00 07/07/16 17:12 (NS Flush) 2 ml BID IVF 07/05/16 21:00 07/12/16 08:43 (Zofran Inj) 4 mg Q6H PRN IVP 07/05/16 21:00 (Senokot) 17.2 mg Q12H PRN PO 07/05/16 21:00 (Tylenol) 650 mg Q6H PRN PO 07/05/16 21:00 07/11/16 23:20 (Eliquis) 5 mg BID PO 07/06/16 09:00 07/12/16 08:42 (Proscar) 5 mg DAILY PO 07/06/16 09:00 07/12/16 08:42 (KCl) 20 meq BID PO 07/06/16 09:00 07/12/16 08:42 (Flomax) 0.4 mg HS PO 07/06/16 21:00 07/11/16 20:44 (Pravachol) 20 mg DAILY PO 07/06/16 09:00 07/12/16 08:42 (Tessalon) 200 mg TID PRN PO 07/06/16 08:15 07/11/16 09:34 (Zithromax) 500 mg Q24H PO 07/06/16 10:00 07/12/16 08:45 (Chapstick) 1 applic UNSCH PRN TOP 07/07/16 15:15 (Cardizem) 90 mg QID PO 07/10/16 13:00 07/12/16 08:42 (Lopressor) 50 mg Q12HR PO 07/11/16 10:15 07/12/16 08:42 (Lasix) 40 mg DAILY PO 07/12/16 09:00 07/12/16 08:42 Vital Signs / I&O Vital Signs Date Time Temp Pulse Resp B/P Pulse Ox O2 Delivery O2 Flow Rate FiO2 07/12/16 10:24 93 Nasal Cannula 3.00 07/12/16 08:00 Nasal Cannula 4.00 07/12/16 08:00 98.4 108 14 145/87 97 07/12/16 08:00 90 07/12/16 06:00 88 07/12/16 05:00 96 07/12/16 04:00 86 07/12/16 03:00 97.5 88 20 117/68 93 07/12/16 03:00 88 07/12/16 03:00 93 Nasal Cannula 4.00 07/12/16 02:00 87 07/12/16 01:00 80 07/12/16 00:00 77 07/11/16 23:00 97.8 87 18 122/76 95 07/11/16 23:00 95 Nasal Cannula 4.00 07/11/16 23:00 87 07/11/16 22:00 79 07/11/16 21:00 86 07/11/16 20:00 80 07/11/16 20:00 99.2 79 18 131/67 95 07/11/16 20:00 95 Nasal Cannula 4.00 07/11/16 19:00 79 07/11/16 18:00 100 07/11/16 17:15 93 Nasal Cannula 3.00 07/11/16 17:00 79 07/11/16 16:00 77 07/11/16 15:00 96 Nasal Cannula 4.00 07/11/16 15:00 63 07/11/16 15:00 98.5 77 18 106/65 96 07/11/16 14:00 81 07/11/16 13:00 95 07/11/16 12:00 101 07/11/16 11:58 94 Nasal Cannula 3.00 I/O 07/11/16 07/11/16 07/11/16 07/12/16 07/12/16 07/12/16 07:00 15:00 23:00 07:00 15:00 23:00 Intake Total 240 ml 600 ml 240 ml Output Total 1975 ml 1200 ml 375 ml Balance -1735 ml -600 ml -135 ml Intake Oral 240 ml 600 ml 240 ml Output Urine Total 1975 ml 1200 ml 375 ml # Bowel Movements 0 1 0 Physical Exam GENERAL: Well-nourished, well-developed patient. SKIN: Warm and dry. HEAD: Normocephalic. EYES: No scleral icterus. No injection or drainage. NECK: Supple, trachea midline. No JVD or lymphadenopathy. CARDIOVASCULAR: IRR IRR no murmurs, gallops, or rubs. RESPIRATORY: Breath sounds equal bilaterally. No accessory muscle use. GASTROINTESTINAL: Abdomen soft, non-tender, nondistended, obese EXTREMITIES: No cyanosis, +2 edema. NEUROLOGICAL: Awake, alert, and oriented x 3. Non-focal. Laboratory Laboratory Tests Test 07/12/16 06:22 Sodium Level 138 MEQ/L Potassium Level 3.7 MEQ/L Chloride Level 90 MEQ/L Carbon Dioxide Level GREATER THAN 45.0 MEQ/L Anion Gap 3 MEQ/L Blood Urea Nitrogen 11 MG/DL Creatinine 0.66 MG/DL Estimat Glomerular Filtration 118 ML/MIN Rate Random Glucose 110 MG/DL Calcium Level 8.5 MG/DL Assessment and Plan Problem List: (1) Atrial fibrillation Assessment and Plan: Afib Rate control Cont PO meds for rate control and OAC Stable to be d/c home with follow with f/u Ismael (2) CHF exacerbation (3) Hyperlipidemia (4) Hypertension (5) Obesity Problem Qualifiers (1) Atrial fibrillation: Qualified Code: I48.2 - Chronic atrial fibrillation (2) CHF exacerbation: Qualified Code: I50.9 - Acute on chronic congestive heart failure, unspecified congestive heart failure type (3) Hyperlipidemia: Qualified Code: E78.5 - Hyperlipidemia, unspecified hyperlipidemia type (4) Hypertension: Qualified Code: I10 - Essential hypertension (5) Obesity: Qualified Code: E66.9 - Obesity, unspecified obesity severity, unspecified obesity type Cam Ewing MD Jul 12, 2016 11:23
--- NOTE | 2016-07-12 11:54 | HHI.PR ---
Subjective Remarks Offering no complaint No shortness of breath no cough no cp no fever No nausea vomiting No diarrhea Review of system for 10 point system otherwise unremarkable - Objective Objective Results - Vital Signs Date Time Temp Pulse Resp B/P Pulse Ox O2 Delivery O2 Flow Rate FiO2 07/12/16 11:00 78 07/12/16 10:24 93 Nasal Cannula 3.00 07/12/16 10:00 83 07/12/16 09:00 93 07/12/16 08:00 Nasal Cannula 4.00 07/12/16 08:00 98.4 108 14 145/87 97 07/12/16 08:00 90 07/12/16 07:00 94 07/12/16 06:00 88 07/12/16 05:00 96 07/12/16 04:00 86 07/12/16 03:00 97.5 88 20 117/68 93 07/12/16 03:00 88 07/12/16 03:00 93 Nasal Cannula 4.00 07/12/16 02:00 87 07/12/16 01:00 80 07/12/16 00:00 77 07/11/16 23:00 97.8 87 18 122/76 95 07/11/16 23:00 95 Nasal Cannula 4.00 07/11/16 23:00 87 07/11/16 22:00 79 07/11/16 21:00 86 07/11/16 20:00 80 07/11/16 20:00 99.2 79 18 131/67 95 07/11/16 20:00 95 Nasal Cannula 4.00 07/11/16 19:00 79 07/11/16 18:00 100 07/11/16 17:15 93 Nasal Cannula 3.00 07/11/16 17:00 79 07/11/16 16:00 77 07/11/16 15:00 96 Nasal Cannula 4.00 07/11/16 15:00 63 07/11/16 15:00 98.5 77 18 106/65 96 07/11/16 14:00 81 07/11/16 13:00 95 07/11/16 12:00 101 07/11/16 11:58 94 Nasal Cannula 3.00 I/O 07/11/16 07/11/16 07/11/16 07/12/16 07/12/16 07/12/16 07:00 15:00 23:00 07:00 15:00 23:00 Intake Total 240 ml 600 ml 240 ml Output Total 1975 ml 1200 ml 375 ml Balance -1735 ml -600 ml -135 ml Intake Oral 240 ml 600 ml 240 ml Output Urine Total 1975 ml 1200 ml 375 ml # Bowel Movements 0 1 0 Result Diagram: 07/09/16 0614 07/12/16 0622 Imaging Last Impressions Chest X-Ray 07/05/16 1633 Signed Impressions: Service Date/Time: Tuesday, July 05, 2016 16:52 - CONCLUSION: Mild cardiomegaly with radiographically consistent with congestive heart failure. Freya Finley MD Other Results Laboratory Tests Test 07/12/16 06:22 Sodium Level 138 Potassium Level 3.7 Chloride Level 90 Carbon Dioxide Level GREATER THAN 45.0 Anion Gap 3 Blood Urea Nitrogen 11 Creatinine 0.66 Estimat Glomerular Filtration 118 Rate Random Glucose 110 Calcium Level 8.5 Physical Exam Physical Exam GENERAL: This is a well-nourished, obese male. SKIN: Chronic venous discoloration to both lower extremities, skin warm and dry. Thick lower extremities can at leg area HEAD: Atraumatic. Normocephalic. No temporal or scalp tenderness. EYES: Pupils equal round and reactive. Extraocular motions intact. No scleral icterus. No injection or drainage. ENT: Airway patent. NECK: Trachea midline. Supple, nontender, no meningeal signs. CARDIOVASCULAR: S1-S2, irregularly irregular, without murmurs, gallops, or rubs. Bilateral lower extremities with 2+ pitting edema from below knee down to feet, difficult to palpate pedal pulses. RESPIRATORY: Occasional Faint bibasilar Rales, no wheezing. GASTROINTESTINAL: Abdomen soft, non-tender, nondistended. Flank edema. Unable to palpate organomegaly due to body habitus. No guarding. MUSCULOSKELETAL: No joint tenderness, effusion, or edema noted. No calf tenderness. Negative Homans sign bilaterally. NEUROLOGICAL: Awake and alert. Cranial nerves II through XII intact. Motor and sensory grossly within normal limits. Five out of 5 muscle strength in all muscle groups. Normal speech. Urinary Catheter: No Vascular Central Line Catheter: No A/P Assessment and Plan (1) CHF exacerbation (2) Atrial fibrillation (3) Hyperlipidemia (4) Hypertension (5) Obesity Plan 76-year-old white male with significant past medical history of A. fib, hypertension, CHF, chronic peripheral edema. Came to emergency room complaining of ongoing dyspnea with exertion worsening over the last couple of weeks, orthopnea, increased lower extremity edema, hypoxia. Pt. was found in acute congestive heart failure. -Continuous cardiac telemetry Lasix by mouth -Appreciate card input, okay to DC Heart healthy diet with 1500 cc fluid restriction Discussed with patient need to comply with diet, avoid beer-verbalizes understanding, agreeable -Strict intake and output 2D echo report reviewed EF of 45-50% with severe TR Chronic atrial fibrillation, occ. episodes of RVR On Cardizem by mouth 90 mg 4 times a day controlled heart rate Continue Eliquis Cough with sputum production, ongoing, with mild wheezing -DuoNeb's when necessary Empiric antibiotics -Tessalon Hypertension -Continue home medications Hyperlipidemia Continue home medications BPH Continue home meds Continue with Eliquis for DVT prophylaxis Labs reviewed D/W pt. Plan to DC home today to be followed by his primary care DrLuda and cardiology as outpatient Corey Saunders MD Jul 12, 2016 11:54
[2016-07-12] MEDS ORDERED: METO-309 PO (11:57)
[2016-07-12] MEDS ORDERED: DILT90TA PO (11:57)
[2016-07-12] MEDS ORDERED: FURO1TAB60 PO (11:57)
--- NOTE | 2016-07-12 12:01 | HHI.FF ---
Face to Face Verification Diagnosis: (1) Atrial fibrillation (2) Hyperlipidemia (3) Hypertension (4) Obesity (5) CHF exacerbation Physical Therapy Order: Evaluate and Treat Home Health Nursing Order: Medical education Signs/symptoms of disease process CHF education Nursing assessment with vital signs I have seen patient Yuan Mcgill on 07/12/16. My clinical findings support the need for the requested home health care services because: Ltd mobility - disease progression I certify that my clinical findings support that this patient is homebound because: Unable to use public transportation Corey Saunders MD Jul 12, 2016 12:01
--- NOTE | 2016-07-12 12:04 | HHI.DS ---
Discharge Summary Admission Date Jul 06, 2016 at 08:32 Admitting Diagnosis CHF exacerbation (1) CHF exacerbation Diagnosis: Principal (2) Atrial fibrillation Diagnosis: Principal (3) Hyperlipidemia Diagnosis: Principal (4) Hypertension Diagnosis: Principal (5) Obesity Diagnosis: Principal Brief History This is a 76-year-old male with history of chronic leg edema, hypertension, CHF , atrial fibrillation, HTN, hyperlipidemia. Pt. presented to the ER today because of ongoing worsening of bilateral leg edema, he has been having more dyspnea on exertion and shortness of breath, has 2 sit up to sleep. Symptoms have been ongoing for several weeks. No CP, no palpitations, no fever, no chills. Has had a cough with loo/yellow sputum. Has noted increase in weight, abdomen is more distended and leg swelling increased. His home health care nurse talked to his primary care physician who sent him in for worsening shortness of breath. 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 Guevara, last saw him 3 months ago. Patient followed to have A. fib with RVR with CHF systolic type. Patient was seen and followed by cardiology. Patient was put on appropriate medication including diuretics. His heart rate was initially controlled with IV medication and then switch to by mouth medication. Medication was adjusted accordingly. Now heart rate is controlled and blood pressure is controlled. His breathing is significantly improved. His swelling is significantly improved. As patient is overall a stable and good condition plan to discharge him home. Will do walk test. To see need of oxygen. He will go home with home health care. CBC/BMP: 07/09/16 0614 07/12/16 0622 Significant Findings Laboratory Tests Test 07/10/16 07/11/16 07/12/16 04:02 04:27 06:22 Chloride Level 90 MEQ/L 88 MEQ/L 90 MEQ/L (98-107) (98-107) (98-107) Carbon Dioxide Level 43.2 MEQ/L 44.2 MEQ/L GREATER THAN (21.0-32.0) (21.0-32.0) 45.0 MEQ/L (21.0-32.0) Creatinine 0.47 MG/DL 0.52 MG/DL (0.60-1.30) (0.60-1.30) Random Glucose 119 MG/DL 108 MG/DL 110 MG/DL (74-106) (74-106) (74-106) Calcium Level 8.3 MG/DL 8.4 MG/DL (8.5-10.1) (8.5-10.1) B-Type Natriuretic Peptide 278 PG/ML (0-100) Potassium Level 3.4 MEQ/L (3.5-5.1) Anion Gap 3 MEQ/L (5-15) Pt Condition on Discharge: Good Discharge Disposition: Disch w/ Home Health Serv Discharge Instructions DIET: Follow Instructions for: Heart Healthy Diet Activities you can perform: Weight Bearing as Gildardo Follow up Referrals: Cardiology - 2 Weeks PCP Follow-up with MARY ANNE New Medications: Diltiazem (Diltiazem) 90 Mg Tab 90 MG PO QID cough #20 TAB Furosemide (Lasix) 40 Mg Tab 40 MG PO DAILY fluid retention #62 TAB Metoprolol Tartrate (Lopressor) 50 Mg Tab 50 MG PO Q12HR atrial fib #60 TAB Continued Medications: Apixaban (Eliquis) 5 Mg Tab 5 MG PO BID Blood Clot Prevention #60 Ref 0 TAB Finasteride (Finasteride) 5 Mg Tab 5 MG PO DAILY Do not crush. Manage Prostate Problems #30 Ref 0 TAB Finasteride (Finasteride) 5 Mg Tab 5 MG PO DAILY Do not crush. Manage Prostate Problems #30 Ref 0 TAB Potassium Chloride ER (Potassium Chloride ER) 20 Meq Tab 20 MEQ PO BID Electrolyte Replacement #60 Ref 0 TAB Simvastatin (Simvastatin) 10 Mg Tab 10 MG PO DAILY Cholesterol Management #30 Ref 0 TAB Tamsulosin (Tamsulosin) 0.4 Mg Cap 0.4 MG PO HS Manage Prostate Problems #30 Ref 0 CAP Discontinued Medications: Furosemide (Furosemide) 20 Mg Tab 20 MG PO BID #60 Ref 0 TAB Verapamil SR (Verapamil SR) 180 Mg Cap 180 MG PO DAILY #30 Ref 0 CAP Corey Saunders MD Jul 12, 2016 12:04
[2016-07-12] MEDS: ACETAMINOPHEN 325 MG TAB PO PRN (19:37)
[2016-07-12] MEDS: TAMSULOSIN HCL 0.4 MG CAP PO SCH (20:38)
[2016-07-13] VITALS (25 sets, daily range): BP systolic 109–132; BP diastolic 66–89; PULSE 72–115; RESP 20–22; TEMP 98.2–98.6; O2SAT 65–99
[2016-07-13] MEDS: ACETAMINOPHEN 325 MG TAB PO PRN (02:46)
[2016-07-13] MEDS: METOPROLOL TARTRATE 50 MG TAB PO SCH ×2 (09:10→20:06)
[2016-07-13] MEDS: AZITHROMYCIN 250 MG TAB PO SCH (09:10)
[2016-07-13] MEDS: FINASTERIDE 5 MG TAB PO SCH (09:10)
[2016-07-13] MEDS: DILTIAZEM HCL 90 MG TAB PO SCH ×4 (09:10→20:06)
[2016-07-13] MEDS: POTASSIUM CHLORIDE 20 MEQ CONTROLLED RELEASE TAB PO SCH ×2 (09:11→20:06)
[2016-07-13] MEDS: PRAVASTATIN SOD 20 MG TAB PO SCH (09:11)
[2016-07-13] MEDS: APIXABAN 5 MG TABLET PO SCH ×2 (09:11→20:06)
[2016-07-13] MEDS: FUROSEMIDE 40 MG TAB PO SCH (09:11)
--- NOTE | 2016-07-13 11:15 | HHI.PR ---
Subjective Remarks no sob no cp no fever pt. sitting up in chair has no complaints waiting to be discharged Objective Objective Results - Vital Signs Date Time Temp Pulse Resp B/P Pulse Ox O2 Delivery O2 Flow Rate FiO2 07/13/16 10:02 98 Nasal Cannula 2.00 07/13/16 08:23 98.2 95 22 130/89 99 07/13/16 06:00 89 07/13/16 05:00 87 07/13/16 04:00 98.4 88 20 124/71 93 07/13/16 04:00 78 07/13/16 04:00 93 Nasal Cannula 3.00 07/13/16 03:00 81 07/13/16 02:00 91 07/13/16 01:05 75 07/13/16 00:00 98.6 82 22 109/66 93 07/13/16 00:00 76 07/13/16 00:00 93 Nasal Cannula 3.00 07/12/16 23:00 76 07/12/16 22:00 78 07/12/16 21:00 76 07/12/16 20:29 21 07/12/16 20:00 98.2 90 24 133/70 92 07/12/16 20:00 80 07/12/16 20:00 92 Nasal Cannula 3.00 07/12/16 18:00 82 07/12/16 17:00 83 07/12/16 16:00 78 07/12/16 16:00 Nasal Cannula 3.00 07/12/16 16:00 98.4 85 16 132/84 94 07/12/16 15:00 85 07/12/16 14:00 90 07/12/16 13:00 82 07/12/16 12:00 Nasal Cannula 3.00 07/12/16 12:00 82 07/12/16 12:00 98.6 90 18 114/73 93 I/O 07/12/16 07/12/16 07/12/16 07/13/16 07/13/16 07/13/16 07:00 15:00 23:00 07:00 15:00 23:00 Intake Total 240 ml 460 ml 714 ml Output Total 375 ml 650 ml 175 ml Balance -135 ml -190 ml 539 ml Intake Oral 240 ml 460 ml 714 ml Output Urine Total 375 ml 650 ml 175 ml # Voids 3 # Bowel Movements 0 1 1 Result Diagram: 1/13/17 0614 07/12/16 0622 Imaging Last Impressions Chest X-Ray 07/05/16 1633 Signed Impressions: Service Date/Time: Tuesday, July 05, 2016 16:52 - CONCLUSION: Mild cardiomegaly with radiographically consistent with congestive heart failure. Freya Finley MD ROS General: No: Fatigue, Weakness HEENT: No: Sore Throat, Dysphagia Cardiac: Edema, No: Chest Pain, Palpitations, Other Pulmonary: No: Cough, SOB, Wheezing GI: No: Abdominal Pain, BM, Diarrhea, N/V /STRING TOP SEALER: No: Dysuria, Urgency Neuro/MS: No: Lightheaded, Confusion Psych: No: Anxiety, Depression Skin: No: Itching, Rash Physical Exam Physical Exam GENERAL: This is a well-nourished, obese male, SOB with conversation. SKIN: Chronic venous discoloration to both lower extremities, skin warm and dry. HEAD: Atraumatic. Normocephalic. No temporal or scalp tenderness. EYES: Pupils equal round and reactive. Extraocular motions intact. No scleral icterus. No injection or drainage. ENT: Nose without bleeding, purulent drainage or septal hematoma. Throat without erythema, tonsillar hypertrophy or exudate. Uvula midline. Airway patent. NECK: Trachea midline. No JVD or lymphadenopathy. Supple, nontender, no meningeal signs. CARDIOVASCULAR: S1-S2, irregularly irregular, without murmurs, gallops, or rubs. Bilat LE with trace pretibial edema. Teds in place RESPIRATORY: Faint bibasilar Rales. GASTROINTESTINAL: Abdomen soft, non-tender, nondistended. Unable to palpate organomegaly due to body habitus. No guarding. MUSCULOSKELETAL: No joint tenderness, effusion, or edema noted. No calf tenderness. Negative Homans sign bilaterally. NEUROLOGICAL: Awake and alert. Cranial nerves II through XII intact. Motor and sensory grossly within normal limits. Five out of 5 muscle strength in all muscle groups. Normal speech. Urinary Catheter: No Vascular Central Line Catheter: No A/P Diagnosis: (1) CHF exacerbation (2) Atrial fibrillation (3) Hyperlipidemia (4) Hypertension (5) Obesity Assessment and Plan 76-year-old white male with significant past medical history of A. fib, hypertension, CHF, chronic peripheral edema. Came to emergency room complaining of ongoing dyspnea with exertion worsening over the last couple of weeks, orthopnea, increased lower extremity edema, hypoxia. Pt. was found in acute congestive heart failure. -Continuous cardiac telemetry Lasix by mouth -Appreciate card input, okay to DC Heart healthy diet with 1500 cc fluid restriction Discussed with patient need to comply with diet, avoid beer-verbalizes understanding, agreeable -Strict intake and output -2D echo report reviewed EF of 45-50% with severe TR Chronic atrial fibrillation, occ. episodes of RVR On Cardizem by mouth 90 mg 4 times a day controlled heart rate Continue Eliquis Cough with sputum production, ongoing, with mild wheezing -DuoNeb's when necessary Empiric antibiotics -Tessalon Hypertension -Continue home medications Hyperlipidemia Continue home medications BPH Continue home meds Continue with Eliquis for DVT prophylaxis Discharged yesterday, insurance did not approve transport due to holiday pt. going to SNF today F/U cardiology Diet-heart healthy with fluid restriction Activity-as tolerated. D/W RN D/W Dr. Diaz D/W pt. This patient was seen by myself and Dr. Diaz, this note is written on his behalf Problem Qualifiers (1) CHF exacerbation: Qualified Code: I50.9 - Acute on chronic congestive heart failure, unspecified congestive heart failure type (2) Atrial fibrillation: Qualified Code: I48.2 - Chronic atrial fibrillation (3) Hyperlipidemia: Qualified Code: E78.5 - Hyperlipidemia, unspecified hyperlipidemia type (4) Hypertension: Qualified Code: I10 - Essential hypertension (5) Obesity: Qualified Code: E66.9 - Obesity, unspecified obesity severity, unspecified obesity type Kasey Austin Jul 13, 2016 11:14
[2016-07-13] MEDS: TAMSULOSIN HCL 0.4 MG CAP PO SCH (20:06)
[2016-07-13] MEDS: SODIUM CHLORIDE 0.9% FLUSH 5 ML FLUSH IVF SCH (20:07)
[2016-07-14] VITALS (19 sets, daily range): BP systolic 108–145; BP diastolic 58–76; PULSE 67–95; RESP 18–20; TEMP 98–98.7; O2SAT 91–99
[2016-07-14] MEDS: SODIUM CHLORIDE 0.9% FLUSH 5 ML FLUSH IVF SCH (08:21)
[2016-07-14] MEDS: DILTIAZEM HCL 90 MG TAB PO SCH ×4 (08:21→20:22)
[2016-07-14] MEDS: FINASTERIDE 5 MG TAB PO SCH (08:22)
[2016-07-14] MEDS: METOPROLOL TARTRATE 50 MG TAB PO SCH ×2 (08:22→20:22)
[2016-07-14] MEDS: POTASSIUM CHLORIDE 20 MEQ CONTROLLED RELEASE TAB PO SCH ×2 (08:22→20:22)
[2016-07-14] MEDS: APIXABAN 5 MG TABLET PO SCH ×2 (08:22→20:22)
[2016-07-14] MEDS: PRAVASTATIN SOD 20 MG TAB PO SCH (08:22)
[2016-07-14] MEDS: AZITHROMYCIN 250 MG TAB PO SCH (08:22)
[2016-07-14] MEDS: FUROSEMIDE 40 MG TAB PO SCH (08:22)
--- NOTE | 2016-07-14 09:38 | HHI.PR ---
Subjective Remarks no sob no cp no fever pt. sitting up in chair has no complaints waiting to be discharged, SNF not approved by insurance wants to go home with [facility] Objective Objective Results - Vital Signs Date Time Temp Pulse Resp B/P Pulse Ox O2 Delivery O2 Flow Rate FiO2 07/14/16 06:00 86 07/14/16 05:00 80 07/14/16 04:54 98.0 80 120/70 96 07/14/16 04:54 Nasal Cannula 3.00 21 07/14/16 04:00 74 07/14/16 03:00 80 07/14/16 02:00 79 07/14/16 01:06 98.7 72 118/58 91 07/14/16 01:06 Nasal Cannula 3.00 21 07/14/16 01:00 71 07/14/16 00:00 67 07/13/16 23:00 72 07/13/16 22:00 72 07/13/16 21:27 Nasal Cannula 3.00 07/13/16 21:27 98.4 84 131/74 95 07/13/16 21:00 72 07/13/16 20:00 82 07/13/16 19:33 65 Nasal Cannula 2.00 07/13/16 19:00 84 07/13/16 18:00 88 07/13/16 17:00 85 07/13/16 16:47 2.00 07/13/16 16:00 93 Nasal Cannula 3.00 07/13/16 16:00 98.5 82 20 132/81 96 07/13/16 14:00 99 07/13/16 13:00 85 07/13/16 12:00 98.4 83 20 128/78 99 07/13/16 11:00 86 07/13/16 10:02 98 Nasal Cannula 2.00 07/13/16 10:00 114 I/O 07/13/16 07/13/16 07/13/16 07/14/16 07/14/16 07/14/16 07:00 15:00 23:00 07:00 15:00 23:00 Intake Total 714 ml 360 ml Output Total 175 ml 575 ml Balance 539 ml -215 ml Intake Oral 714 ml 360 ml Output Urine Total 175 ml 575 ml # Voids 3 3 # Bowel Movements 1 Result Diagram: 07/12/16 0622 Imaging Last Impressions Chest X-Ray 07/05/16 1633 Signed Impressions: Service Date/Time: Tuesday, July 05, 2016 16:52 - CONCLUSION: Mild cardiomegaly with radiographically consistent with congestive heart failure. MD VITALIY Feldman Cardiac: Edema (less now) Pulmonary: SOB (improved) Physical Exam Physical Exam GENERAL: This is a well-nourished, obese male, SOB with conversation. SKIN: Chronic venous discoloration to both lower extremities, skin warm and dry. HEAD: Atraumatic. Normocephalic. No temporal or scalp tenderness. EYES: Pupils equal round and reactive. Extraocular motions intact. No scleral icterus. No injection or drainage. ENT: Nose without bleeding, purulent drainage or septal hematoma. Throat without erythema, tonsillar hypertrophy or exudate. Uvula midline. Airway patent. NECK: Trachea midline. No JVD or lymphadenopathy. Supple, nontender, no meningeal signs. CARDIOVASCULAR: S1-S2, irregularly irregular, without murmurs, gallops, or rubs. Bilat LE with trace pretibial edema. Teds in place RESPIRATORY: Faint bibasilar Rales. GASTROINTESTINAL: Abdomen soft, non-tender, nondistended. Unable to palpate organomegaly due to body habitus. No guarding. MUSCULOSKELETAL: No joint tenderness, effusion, or edema noted. No calf tenderness. Negative Homans sign bilaterally. NEUROLOGICAL: Awake and alert. Cranial nerves II through XII intact. Motor and sensory grossly within normal limits. Five out of 5 muscle strength in all muscle groups. Normal speech. Urinary Catheter: No Vascular Central Line Catheter: No A/P Diagnosis: (1) CHF exacerbation (2) Atrial fibrillation (3) Hyperlipidemia (4) Hypertension (5) Obesity Assessment and Plan 76-year-old white male with significant past medical history of A. fib, hypertension, CHF, chronic peripheral edema. Came to emergency room complaining of ongoing dyspnea with exertion worsening over the last couple of weeks, orthopnea, increased lower extremity edema, hypoxia. Pt. was found in acute congestive heart failure. -Continuous cardiac telemetry Lasix by mouth -Appreciate card input, okay to DC Heart healthy diet with 1500 cc fluid restriction Discussed with patient need to comply with diet, avoid beer-verbalizes understanding, agreeable -Strict intake and output -2D echo report reviewed EF of 45-50% with severe TR Chronic atrial fibrillation, occ. episodes of RVR On Cardizem by mouth 90 mg 4 times a day controlled heart rate Continue Eliquis Cough with sputum production, ongoing, with mild wheezing -DuoNeb's when necessary Empiric antibiotics -Tessalon Hypertension -Continue home medications Hyperlipidemia Continue home medications BPH Continue home meds Continue with Eliquis for DVT prophylaxis Discharged 2 days ago, insurance did not approve SNF CM to arrange [facility] Discharge home today with HHC/PT F/U cardiology Diet-heart healthy with fluid restriction Activity-as tolerated. D/W RN D/W Dr. Diaz D/W pt./ This patient was seen by myself and Dr. Diaz, this note is written on his behalf Discharge Planning 40 minutes Problem Qualifiers (1) CHF exacerbation: Qualified Code: I50.9 - Acute on chronic congestive heart failure, unspecified congestive heart failure type (2) Atrial fibrillation: Qualified Code: I48.2 - Chronic atrial fibrillation (3) Hyperlipidemia: Qualified Code: E78.5 - Hyperlipidemia, unspecified hyperlipidemia type (4) Hypertension: Qualified Code: I10 - Essential hypertension (5) Obesity: Qualified Code: E66.9 - Obesity, unspecified obesity severity, unspecified obesity type Kasey Austin Jul 14, 2016 09:38
--- NOTE | 2016-07-14 09:39 | HHI.FF ---
Face to Face Verification Diagnosis: (1) Atrial fibrillation (2) Hyperlipidemia (3) Hypertension (4) Obesity (5) CHF exacerbation Physical Therapy Order: Evaluate and Treat Home Health Nursing Order: Medical education CHF education Oxygen administration education Nursing assessment with vital signs Home Health Aide Order: To Assist In: Bathing and personal care, steam press tender and meal prep Circulation Sales Representative Order: To Evaluate: Support services I have seen patient Yuan Mcgill on 07/14/16. My clinical findings support the need for the requested home health care services because: Patient has SOB Deconditioned w/ increased weakness I certify that my clinical findings support that this patient is homebound because: Unsafe to leave home unassisted Need for psychosocial assistance Poor cardiac reserve Kasey Austin Jul 14, 2016 09:39
[2016-07-14] MEDS ORDERED: OXYGENTANK NAS.CANULA (11:12)
[2016-07-14] MEDS: TAMSULOSIN HCL 0.4 MG CAP PO SCH (20:22)
[2016-07-14] MEDS: BENZONATATE 100 MG CAP PO PRN (20:35)
== END 2016-07-14 21:10 | disposition home health service (06) | DRG 293 ==
LOC: NEPC 15:47 → INTOOBSV 19:09 → NEDA 19:09 → NEPFCDU 22:09 → OBSVTOIN 07-06 08:32 → HCIS 07-07 14:41
PROVIDERS: ADMIT Specialist; ATTEND Specialist
DX: I11.0 Hypertensive heart disease with heart failure (principal); I48.2 Chronic atrial fibrillation; I50.23 Acute on chronic systolic (congestive) heart failure; R60.0 Localized edema; N40.0 Benign prostatic hyperplasia without lower urinary tract symptoms; R09.02 Hypoxemia; E78.5 Hyperlipidemia, unspecified; R05 Cough; R06.2 Wheezing; I87.2 Venous insufficiency (chronic) (peripheral); H40.9 Unspecified glaucoma; E66.9 Obesity, unspecified; Z85.828 Personal history of other malignant neoplasm of skin; Z79.01 Long term (current) use of anticoagulants
CPT/HCPCS: 71010; 76937; 80048; 80051; 80053; 83880; 84484; 85025; 85027; 85610; 85730; 93005; 93306; 94620; 94640; 94664; 96374; G0378; G8987-GP; G8988-GP; J1940

== ENCOUNTER 2017-10-21 15:49 | Inpatient (IN) | payer MEDICARE ==
[~2017-10-21] VITALS: Ht 177.8 cm; Wt 115.6 kg
[2017-10-21] VITALS (13 sets, daily range): BP systolic 96–122; BP diastolic 48–57; PULSE 75–95; RESP 16–19; TEMP 97.9–99.2; O2SAT 95–100
[~2017-10-21 15:49] MED LIST changes: -CALA180T PO; -CEPH500C3 PO; +DILT90TA PO; +FINA5TAB2 PO; -FINA5TAB77 PO; +FURO1TAB60 PO; -GLUC500C56 PO; -LASI20TA PO; -LUMI0.01 EACH EYE; -METF500 PO; +METO-309 PO; -MULT-65 PO; +OXYGENTANK NAS.CANULA; +POTA-163 PO; -POTA-243 PO; -SIMV10 PO; +SIMV10TA PO; +TAMS0.4C4 PO; -TAMS0.4C67 PO; -TIMO0.5S6 OU
[2017-10-21] MEDS ORDERED: SODIUM CHLOR 0.9% 1000 ML INJ 1,000 ML IV SCH (16:36)
--- NOTE | 2017-10-21 16:42 | PD ---
HPI Chief Complaint: GI Complaint Time Seen by Provider: 16:27 Travel History International Travel<30 days: No Contact w/Intl Traveler<30days: No Traveled to known affect area: No History of Present Illness HPI This patient complains of diarrhea. Duration is a couple days. He had 3 episodes today. He denies vomiting or abdominal pain or presyncopal symptoms. Patient has chronic severe swelling of the legs. Symptom severity is moderate. No alleviating factors. He does not know if he is currently taking or recently take antibiotics. He denies prior diarrhea issues or colon problems. No exacerbating factors. no fever. He is on blood thinners for A. fib PFSH Past Medical History Hx Anticoagulant Therapy: Yes (ELOQUIS) Asthma: No Atrial Fibrillation: Yes Blood Disorders: Yes Anxiety: Yes Heart Rhythm Problems: Yes Cancer: Yes (BCC) Cardiovascular Problems: Yes Chest Pain: No Congestive Heart Failure: Yes COPD: No Diabetes: No Diminished Hearing: Yes Endocrine: No Gastrointestinal Disorders: No Glaucoma: Yes Genitourinary: Yes (BPH) Hepatitis: No Hiatal Hernia: No Hypertension: Yes Immune Disorder: No Medical other: Yes (BPH ; [place]) Musculoskeletal: No Neurologic: No Psychiatric: No Reproductive: No Respiratory: Yes (POSSIBLE SLEEP APNEA) Thyroid Disease: No Past Surgical History Abdominal Surgery: Yes (REPAIR INGUINAL HERNIA) Eye Surgery: Yes (EYE TURNING IN 1950 ; LEFT CATARACT SX 07/06) Genitourinary Surgery: Yes (PROSTATE SURGERY) Oral Surgery: Yes (T&A) Pacemaker: No Other Surgery: Yes Social History Alcohol Use: Yes (10 BEERS A WEEK) Tobacco Use: No Substance Use: No Allergies-Medications (Allergen,Severity, Reaction): Coded Allergies: No Known Allergies (Verified , 01/03/16) Reported Meds & Prescriptions Reported Meds & Active Scripts Active Lopressor (Metoprolol Tartrate) 50 Mg Tab 50 Mg PO Q12HR Lasix (Furosemide) 40 Mg Tab 40 Mg PO DAILY Diltiazem (Diltiazem HCl) 90 Mg Tab 90 Mg PO QID Reported Finasteride 5 Mg Tab 5 Mg PO DAILY Do not crush. Eliquis (Apixaban) 5 Mg Tab 5 Mg PO BID Simvastatin 10 Mg Tab 10 Mg PO DAILY Potassium Chloride ER (Potassium Chloride) 20 Meq Tab 20 Meq PO BID Tamsulosin (Tamsulosin HCl) 0.4 Mg Cap 0.4 Mg PO HS Review of Systems General / Constitutional: No: Fever Eyes: No: Visual changes HENT: No: Headaches Cardiovascular: Positive: Edema, No: Chest Pain or Discomfort Respiratory: No: Shortness of Breath Gastrointestinal: Positive: Diarrhea, No: Abdominal Pain Genitourinary: No: Dysuria Musculoskeletal: Positive: Edema, No: Pain Skin: No Rash Neurologic: No: Weakness Psychiatric: No: Depression Endocrine: No: Polydipsia Hematologic/Lymphatic: No: Easy Bruising Physical Exam Narrative GENERAL: Well-nourished, well-developed patient in no apparent distress. SKIN: Focused skin assessment reveals no rash and nodules. Skin is Warm and dry. HEAD: Atraumatic. Normocephalic. EYES: Pupils equal and round. No scleral icterus. No injection or drainage. ENT: No nasal bleeding or discharge. Mucous membranes pink and moist. NECK: Trachea midline. No JVD. CARDIOVASCULAR: Regular rate and rhythm. No murmur appreciated. RESPIRATORY: No accessory muscle use. Clear to auscultation. Breath sounds equal bilaterally. GASTROINTESTINAL: Abdomen soft, protuberant but non-tender, Hepatic and splenic margins not palpable. MUSCULOSKELETAL: No obvious deformities. No clubbing. No cyanosis. Severe symmetric pitting edema from the knees down. NEUROLOGICAL: Awake and alert. No obvious cranial nerve deficits. Motor grossly within normal limits. Normal speech. PSYCHIATRIC: Appropriate mood and affect; insight and judgment normal. Data Data Last Documented VS Vital Signs Date Time Temp Pulse Resp B/P (MAP) Pulse Ox O2 Delivery O2 Flow Rate FiO2 10/21/17 17:33 84 16 105/55 (72) 95 Room Air 10/21/17 16:00 98.7 Orders Orders Complete Blood Count With Diff (10/21/17 16:36) Comprehensive Metabolic Panel (10/21/17 16:36) Iv Access Insert/Monitor (10/21/17 16:36) Ecg Monitoring (10/21/17 16:36) Oximetry (10/21/17 16:36) Sodium Chlor 0.9% 1000 Ml Inj (Ns 1000 M (10/21/17 16:36) Sodium Chloride 0.9% Flush (Ns Flush) (10/21/17 16:45) C Diff Toxin Pcr (10/21/17 16:36) Red Blood Cells (Rbc) (10/21/17 17:35) Blood Product Administration (10/21/17 17:35) Sodium Chlor 0.9% 250 Ml Inj (Ns 250 Ml (10/21/17 17:45) Type And Screen (10/21/17 17:35) Admit Order (Ed Use Only) (10/21/17 17:39) Labs Laboratory Tests Test 10/21/17 14:42 10/21/17 14:48 White Blood Count 10.8 TH/MM3 Red Blood Count 2.44 MIL/MM3 Hemoglobin 4.7 GM/DL Hematocrit 15.8 % Mean Corpuscular Volume 64.7 FL Mean Corpuscular Hemoglobin 19.2 PG Mean Corpuscular Hemoglobin Concent 29.7 % Red Cell Distribution Width 20.2 % Platelet Count 286 TH/MM3 Mean Platelet Volume 7.1 FL Neutrophils (%) (Auto) 82.9 % Lymphocytes (%) (Auto) 8.8 % Monocytes (%) (Auto) 8.0 % Eosinophils (%) (Auto) 0.0 % Basophils (%) (Auto) 0.3 % Neutrophils # (Auto) 9.0 TH/MM3 Lymphocytes # (Auto) 1.0 TH/MM3 Monocytes # (Auto) 0.9 TH/MM3 Eosinophils # (Auto) 0.0 TH/MM3 Basophils # (Auto) 0.0 TH/MM3 CBC Comment AUTO DIFF Differential Comment AUTO DIFF CONFIRMED Blood Urea Nitrogen 58 MG/DL Creatinine 1.38 MG/DL Random Glucose 112 MG/DL Total Protein 5.3 GM/DL Albumin 2.1 GM/DL Calcium Level 7.6 MG/DL Alkaline Phosphatase 61 U/L Aspartate Amino Transf (AST/SGOT) 9 U/L Alanine Aminotransferase (ALT/SGPT) 14 U/L Total Bilirubin 0.6 MG/DL Sodium Level 144 MEQ/L Potassium Level 5.9 MEQ/L Chloride Level 107 MEQ/L Carbon Dioxide Level 27.0 MEQ/L Anion Gap 10 MEQ/L Estimat Glomerular Filtration Rate 50 ML/MIN [facility] Medical Decision Making Medical Screen Exam Complete: Yes Emergency Medical Condition: Yes Medical Record Reviewed: Yes Differential Diagnosis Colitis, gastroenteritis, medication side effect, C. difficile Narrative Course I have reviewed the patient's electronic medical record. He was admitted for congestive heart failure June 2016. Hemoglobin of 10.1 at that time IV placed and 1 L normal saline IV given primarily due to blood pressure of 96 systolic Labs sent Patient is in rapid A. fib. I gave him 2.5 mg IV Lopressor and 50 mg p.o. Lopressor for rate control. Extended cardiac monitoring confirms the rapid A. fib After those medicines are given his heart rate is now in the 80s After IV fluid his blood pressure is 105 systolic CBC comes back with critical hemoglobin of 4.7 I have ordered him 2 units of emergency release given the fact that he is borderline hypotensive and having active bleeding and is on a blood thinner He will get a total of 4 units packed red cells I spoken with the GI physician who will be consulted. He recommends starting GoLYTELY in anticipation of colonoscopy tomorrow after stabilization today I spoke with lead designer will admit Patient is complex and critically ill requiring multiple rechecks Additional lines placed and he now has 3 IVs Critical Care Narrative Aggregate critical care time was 82 minutes. Time to perform other separately billable procedures was not included in the critical care time. My time did not include minutes spent treating any other patients simultaneously or on activities that did not directly contribute to the patient's treatment. The services I provided to this patient were to treat and/or prevent clinically significant deterioration that could result in: Hemorrhagic shock, cardiopulmonary arrest I provided critical care services requiring my management, as noted below: Chart data review, documentation time, medication orders and management, vital sign assessments/reviewing monitor data, ordering and reviewing lab tests, ordering and interpreting/reviewing x-rays and diagnostic studies, care of the patient and discussion of the patient with the admitting physicians. Diagnosis Primary Impression: GI bleed Qualified Codes: K92.2 - Gastrointestinal hemorrhage, unspecified Additional Impressions: Anticoagulated Anemia Qualified Codes: D62 - Acute posthemorrhagic anemia Admitting Information Admitting Physician Requests: Leo Green MD Oct 21, 2017 16:42
[2017-10-21] MEDS ORDERED: SODIUM CHLORIDE 0.9% FLUSH 10 ML FLUSH IV FLUSH PRN ×2 (16:45→19:00)
[2017-10-21 17:22] LABS: BASOPHIL % 0.3 % (0.0-2.0); LYMPH % 8.8 % (9.0-44.0); MEAN CELL VOLUME 64.7 FL (80.0-100.0); MEAN CORPUSCULAR HEMOGLOBIN 19.2 PG (27.0-34.0); MEAN PLATELET VOLUME 7.1 FL (7.0-11.0); MONOCYTE # 0.9 TH/MM3 (0-0.9); NEUT % 82.9 % (16.0-70.0); PLATELET COUNT 286 TH/MM3 (150-450); RED BLOOD COUNT 2.44 MIL/MM3 (4.50-5.90); RED CELL DISTRIBUTION WIDTH 20.2 % (11.6-17.2); WHITE BLOOD COUNT 10.8 TH/MM3 (4.0-11.0)
[2017-10-21 17:23] LABS: MEAN CORPUSCULAR HGB CONC 29.7 % (32.0-36.0)
[2017-10-21 17:28] LABS: HEMATOCRIT 15.8 % (39.0-51.0); HEMOGLOBIN 4.7 GM/DL (13.0-17.0)
[2017-10-21 17:45] LABS: ALBUMIN 2.1 GM/DL (3.4-5.0); ALT (GPT) 14 U/L (12-78); AST (GOT) 9 U/L (15-37); BLOOD UREA NITROGEN 58 MG/DL (7-18); CALCIUM 7.6 MG/DL (8.5-10.1); CHLORIDE 107 MEQ/L (98-107); CREATININE 1.38 MG/DL (0.60-1.30); GLOMERULAR FILTRATION RATE 50 ML/MIN (>89); GLUCOSE,RANDOM 112 MG/DL (74-106); SODIUM (NA) 144 MEQ/L (136-145)
[2017-10-21] MEDS ORDERED: SODIUM CHLOR 0.9% 250 ML INJ 250 ML IV ONE (17:45)
[2017-10-21 17:47] LABS: ALKALINE PHOSPHATASE 61 U/L (45-117); TOTAL BILIRUBIN ADULT 0.6 MG/DL (0.2-1.0); TOTAL PROTEIN 5.3 GM/DL (6.4-8.2)
[2017-10-21] MEDS ORDERED: PEG (High)/E-LYTE SOLN 4000 ML BTL PO ONE (18:00)
[2017-10-21] MEDS ORDERED: NURSING INFORMATION XX SCH (19:00)
[2017-10-21] MEDS ORDERED: LACTULOSE SYRUP 20 GM/30 ML CUP PO PRN (19:00)
[2017-10-21] MEDS ORDERED: BISACODYL 10 MG SUPP RECTAL PRN (19:00)
[2017-10-21] MEDS ORDERED: SENNOSIDES 8.6 MG TAB PO PRN (19:00)
[2017-10-21] MEDS ORDERED: MORPHINE SULFATE 4 MG/ML INJ IV PUSH PRN (19:00)
[2017-10-21] MEDS ORDERED: ACETAMINOPHEN 325 MG TAB PO PRN (19:00)
[2017-10-21] MEDS ORDERED: CHLORHEXIDINE GLUCONATE 2 % 1 PACK (2 CLOTHS) TOP PRN (19:00)
[2017-10-21] MEDS ORDERED: ONDANSETRON HCL 4 MG/2 ML VIAL IV PUSH PRN (19:00)
[2017-10-21] MEDS ORDERED: PROTHROMBIN COMPLEX CONC INJ 2,500 UNITS in SYRINGE/BAG 1 EA IV ONE (19:15)
--- NOTE | 2017-10-21 20:12 | HHI.HP ---
HPI Service Critical Care Medicine Primary Care Physician Andreas Palacios MD Admission Diagnosis gi bleed,critical anemia,anticoagulated Diagnosis: Travel History International Travel<30 Days: No Contact w/Intl Traveler <30 Da: No Traveled to Known Affected Are: No History of Present Illness 77-year-old gentleman with history of atrial fibrillation on Eliquis presents complaining of diarrhea of dark stool and weakness. The symptoms are started a couple days ago. He had 3 episodes today. He denies vomiting or abdominal pain or presyncopal symptoms. Symptom severity is moderate. No alleviating factors. He does not know if he is currently taking or recently take antibiotics. He denies prior diarrhea issues or colon problems. Review of Systems Constitutional: COMPLAINS OF: Diaphoretic episodes, Fatigue, DENIES: Fever, Weight gain, Weight loss, Chills, Dizziness, Change in appetite, Night Sweats Endocrine: DENIES: Heat/cold intolerance, Polydipsia, Polyuria, Polyphagia Eyes: DENIES: Blurred vision, Diplopia, Eye inflammation, Eye pain, Vision loss , Photosensitivity, Double Vision Ears, nose, mouth, throat: DENIES: Tinnitus, Hearing loss, Vertigo, Nasal discharge, Oral lesions, Throat pain, Hoarseness, Ear Pain, Running Nose, Epistaxis, Sinus Pain, Toothache, Odynophagia Respiratory: DENIES: Apneas, Cough, Snoring, Wheezing, Hemoptysis, Sputum production, Shortness of breath Cardiovascular: DENIES: Chest pain, Palpitations, Syncope, Dyspnea on Exertion , PND, Lower Extremity Edema, Orthopnea, Claudication Gastrointestinal: COMPLAINS OF: Abdominal pain, Black stools, Bloody stools, DENIES: Constipation, Diarrhea, Nausea, Vomiting, Difficulty Swallowing, Anorexia Genitourinary: DENIES: Sexual dysfunction, Urinary frequency, Urinary incontinence, Urgency, Hematuria, Dysuria, Nocturia, Penile Discharge, Testicular Pain, Testicular Swelling Musculoskeletal: DENIES: Joint pain, Muscle aches, Stiffness, Joint Swelling, Back pain, Neck pain Integumentary: DENIES: Abnormal pigmentation, Nail changes, Pruritus, Rash Hematologic/lymphatic: DENIES: Bruising, Lymphadenopathy Immunologic/allergic: DENIES: Eczema, Urticaria Neurologic: DENIES: Abnormal gait, Headache, Localized weakness, Paresthesias, Seizures, Speech Problems, Tremor, Poor Balance Psychiatric: DENIES: Anxiety, Confusion, Mood changes, Depression, Hallucinations, Agitation, Suicidal Ideation, Homicidal Ideation, Delusions Past Family Social History Allergies: Coded Allergies: No Known Allergies (Verified , 01/03/16) Past Medical History afib cataracts kidney stones HTN Hyperlipidemia CHF obesity poss. sleep apnea Past Surgical History cataract surgery Inguinal hernia repair Prostate surgery T & A Reported Medications Reported Meds & Active Scripts Active Lopressor (Metoprolol Tartrate) 50 Mg Tab 50 Mg PO Q12HR Lasix (Furosemide) 40 Mg Tab 40 Mg PO DAILY Diltiazem (Diltiazem HCl) 90 Mg Tab 90 Mg PO QID Reported Finasteride 5 Mg Tab 5 Mg PO DAILY Do not crush. Eliquis (Apixaban) 5 Mg Tab 5 Mg PO BID Simvastatin 10 Mg Tab 10 Mg PO DAILY Potassium Chloride ER (Potassium Chloride) 20 Meq Tab 20 Meq PO BID Tamsulosin (Tamsulosin HCl) 0.4 Mg Cap 0.4 Mg PO HS Active Ordered Medications Current Medications Medications (Trade) Dose Ordered Sig/Clark Route PRN Reason Start Time Stop Time Status Last Admin Dose Admin Sodium Chloride (NS Flush) 2 ml UNSCH PRN IV FLUSH FLUSH AFTER USING IV ACCESS 10/21/17 16:45 Sodium Chloride 250 ml @ 15 mls/hr ONCE ONCE IV 10/21/17 17:45 10/22/17 10:24 Phytonadione 10 mg/Sodium Chloride 51 ml @ 100 mls/hr ONCE ONCE IV 10/21/17 18:45 10/21/17 19:15 UNV Prothrombin Complex Concent (Human) 2500 units/Syringe / Bag 0 ml @ 500 mls/hr ONCE ONCE IV 10/21/17 19:15 10/21/17 19:16 UNV Tamsulosin HCl (Flomax) 0.4 mg HS PO 10/21/17 21:00 UNV Non-Formulary Medication 10 mg DAILY PO 10/22/17 09:00 UNV Sodium Chloride 1,000 ml @ 84 mls/hr [id number] IV 10/21/17 18:52 UNV Sodium Chloride (NS Flush) 2 ml UNSCH PRN IV FLUSH FLUSH AFTER USING IV ACCESS 10/21/17 19:00 UNV Sodium Chloride (NS Flush) 2 ml BID IV FLUSH 10/21/17 21:00 UNV Acetaminophen (Tylenol) 650 mg Q6H PRN PO PAIN 1-5 AND/OR FEVER >101F 10/21/17 19:00 UNV Morphine Sulfate (Morphine Inj) 2 mg Q2H PRN IV PUSH PAIN SCALE 6 TO 10 10/21/17 19:00 UNV Pantoprazole Sodium (Protonix Inj) 40 mg Q12H IV PUSH 10/21/17 19:00 UNV Ondansetron HCl (Zofran Inj) 4 mg Q6H PRN IV PUSH NAUSEA OR VOMITING 10/21/17 19:00 UNV Albuterol/ Ipratropium (Duoneb Neb) 1 ampule Q2HR NEB PRN INH WHEEZING 10/21/17 19:00 UNV Miscellaneous Information ([facility]) 1 [id number] XX 10/21/17 19:00 UNV Chlorhexidine Gluconate (Chlorhexidine 2% Cloth) 3 pack Taper DAILY@04 TOP 10/22/17 04:00 10/18/18 03:59 UNV Chlorhexidine Gluconate (Chlorhexidine 2% Cloth) 3 pack UNSCH PRN TOP HYGIENIC CARE 10/21/17 19:00 UNV Senna/Docusate Sodium (Iris-Colace) 1 tab BID PO 10/21/17 21:00 UNV Magnesium Hydroxide (Milk Of Magnesia Liq) 30 ml Q12H PRN PO Mild constipation 10/21/17 19:00 UNV Sennosides (Senokot) 17.2 mg Q12H PRN PO Moderate constipation 10/21/17 19:00 UNV Bisacodyl (Dulcolax Supp) 10 mg DAILY PRN RECTAL SEVERE CONSITIPATION 10/21/17 19:00 UNV Lactulose (Lactulose Liq) 30 ml DAILY PRN PO SEVERE CONSITIPATION 10/21/17 19:00 UNV Family History Doesn't know Social History , lives with . No smoking, drinks up to 10 beers a week, no illegal drug use. Physical Exam Vital Signs Vital Signs Date Time Temp Pulse Resp B/P (MAP) Pulse Ox O2 Delivery O2 Flow Rate FiO2 10/21/17 19:45 97.9 94 18 122/57 10/21/17 19:36 97.9 81 18 113/57 10/21/17 18:49 99.2 93 19 120/56 (77) 100 Nasal Cannula 2.00 10/21/17 18:35 98.7 80 18 118/56 (76) 97 Nasal Cannula 2.00 10/21/17 18:17 98.5 75 19 116/56 (76) 98 Nasal Cannula 2.00 10/21/17 17:56 98.7 83 17 99/52 (68) 100 Nasal Cannula 2.00 10/21/17 17:43 96 Nasal Cannula 2.00 10/21/17 17:33 84 16 105/55 (72) 95 Room Air 10/21/17 17:33 95 Room Air 10/21/17 16:00 98.7 81 17 96/48 (64) 97 Room Air 10/21/17 15:56 98.7 Physical Exam GENERAL: Well-nourished, well-developed patient. SKIN: Warm and dry. HEAD: Normocephalic. EYES: No scleral icterus. No injection or drainage. NECK: Supple, trachea midline. No JVD or lymphadenopathy. CARDIOVASCULAR: Regular rate and rhythm without murmurs, gallops, or rubs. RESPIRATORY: Breath sounds equal bilaterally. No accessory muscle use. GASTROINTESTINAL: Abdomen soft, non-tender, nondistended. MUSCULOSKELETAL: No cyanosis, or edema. BACK: Nontender without obvious deformity. NEURO EXAM: GCS: 15 Mental Status: The patient is alert and oriented to person, place, and time with normal speech. Cranial Nerves: Visual acuity intact bilaterally. Visual barnes normal in all quadrants. Pupils are round, reactive to light. Extraocular movements are intact without ptosis. Hearing is normal bilaterally. Voice is normal. Tongue protrudes midline and moves symmetrically. Laboratory Laboratory Tests Test 10/21/17 14:42 10/21/17 14:48 Stool C. difficile Toxin (PCR) NEGATIVE Stl C. difficile Toxin Epiderm 027 PRESUMPTIVE NEGATIVE White Blood Count 10.8 Red Blood Count 2.44 Hemoglobin 4.7 Hematocrit 15.8 Mean Corpuscular Volume 64.7 Mean Corpuscular Hemoglobin 19.2 Mean Corpuscular Hemoglobin Concent 29.7 Red Cell Distribution Width 20.2 Platelet Count 286 Mean Platelet Volume 7.1 Neutrophils (%) (Auto) 82.9 Lymphocytes (%) (Auto) 8.8 Monocytes (%) (Auto) 8.0 Eosinophils (%) (Auto) 0.0 Basophils (%) (Auto) 0.3 Neutrophils # (Auto) 9.0 Lymphocytes # (Auto) 1.0 Monocytes # (Auto) 0.9 Eosinophils # (Auto) 0.0 Basophils # (Auto) 0.0 CBC Comment AUTO DIFF Differential Comment AUTO DIFF CONFIRMED Blood Urea Nitrogen 58 Creatinine 1.38 Random Glucose 112 Total Protein 5.3 Albumin 2.1 Calcium Level 7.6 Alkaline Phosphatase 61 Aspartate Amino Transf (AST/SGOT) 9 Alanine Aminotransferase (ALT/SGPT) 14 Total Bilirubin 0.6 Sodium Level 144 Potassium Level 5.9 Chloride Level 107 Carbon Dioxide Level 27.0 Anion Gap 10 Estimat Glomerular Filtration Rate 50 Result Diagram: 10/21/178 10/21/171447 Caprini VTE Risk Assessment Caprini VTE Risk Assessment: Mod/High Risk (score >= 2) VTE Pharm Contraindication: Hemorrhage Caprini Risk Assessment Model Point Value = 1 Point Value = 2 Point Value = 3 Point Value = 5 Age 41-60 Minor surgery BMI > 25 kg/m2 Swollen legs Varicose veins or History of unexplained or recurrent spontaneous Oral contraceptives or hormone replacement Sepsis (< 1 month) Serious lung disease, including pneumonia (< 1 month) Abnormal pulmonary function Acute myocardial infarction Congestive heart failure (< 1 month) History of inflammatory bowel disease Medical patient at bed rest Age 61-74 Arthroscopic surgery Major open surgery (> 45 min) Laparoscopic surgery (> 45 min) Malignancy Confined to bed (> 72 hours) Immobilizing plaster cast Central venous access Age >= 75 History of VTE Family history of VTE Factor V Leiden Prothrombin [id number] Lupus anticoagulant Anticardiolipin antibodies Elevated serum homocysteine Heparin-induced thrombocytopenia Other congenital or acquired thrombophilia Stroke (< 1 month) Elective arthroplasty Hip, pelvis, or leg fracture Acute spinal cord injury (< 1 month) Prophylaxis Regimen Total Risk Factor Score Risk Level Prophylaxis Regimen 0-1 Low Early ambulation 2 Moderate Order ONE of the following: *Sequential Compression Device (SCD) *Heparin 5000 units SQ BID 3-4 Higher Order ONE of the following medications: *Heparin 5000 units SQ TID *Enoxaparin/Lovenox 40 mg SQ daily (WT < 150 kg, CrCl > 30 mL/min) *Enoxaparin/Lovenox 30 mg SQ daily (WT < 150 kg, CrCl > 10-29 mL/min) *Enoxaparin/Lovenox 30 mg SQ BID (WT < 150 kg, CrCl > 30 mL/min) AND/OR *Sequential Compression Device (SCD) 5 or more Highest Order ONE of the following medications: *Heparin 5000 units SQ TID (Preferred with Epidurals) *Enoxaparin/Lovenox 40 mg SQ daily (WT < 150 kg, CrCl > 30 mL/min) *Enoxaparin/Lovenox 30 mg SQ daily (WT < 150 kg, CrCl > 10-29 mL/min) *Enoxaparin/Lovenox 30 mg SQ BID (WT < 150 kg, CrCl > 30 mL/min) AND *Sequential Compression Device (SCD) Assessment and Plan Assessment and Plan GI bleed -Hold Eliquis -Vitamin K in PCC per reversal protocol -Protonix IV twice daily -Gastroenterology consultation -IV fluid hydration -Transfuse PRBCs to keep hemoglobin close to 8 Anemia -Blood loss anemia -Due to above -Transfuse to keep hemoglobin close to 8 Atrial fibrillation -Resume metoprolol and diltiazem when hemodynamically stable Hypertension -Hold antihypertensive meds until GI bleed stabilized Hyperlipidemia -Atorvastatin DVT GI prophylaxis -Johan's and SCDs -No pharmacological DVT prophylaxis due to acute GI bleed -Protonix IV twice daily Critical Care: The total critical care time was 35 minutes. Time to perform other separately billable procedures was not included in the critical care time. Cesar Lainez MD Oct 21, 2017 8:12 pm
[2017-10-21] MEDS: DOCUSATE SODIUM 50 MG/SENNA 8.6 MG TAB PO SCH (21:00)
[2017-10-21] MEDS ORDERED: PHYTONADIONE INJ 10 MG in SODIUM CHLORIDE 0.9% INJ 50 ML IV ONE (22:00)
[2017-10-21] MEDS: PANTOPRAZOLE SODIUM 40 MG VIAL IV PUSH SCH (22:15)
[2017-10-21] MEDS: SODIUM CHLORIDE 0.9% FLUSH 10 ML FLUSH IV FLUSH SCH (22:15)
[2017-10-21] MEDS: TAMSULOSIN HCL 0.4 MG CAP PO SCH (22:16)
[2017-10-22] VITALS (20 sets, daily range): BP systolic 108–142; BP diastolic 51–66; PULSE 95–128; RESP 18–29; TEMP 98.2–99.3; O2SAT 93–99
[2017-10-22] MEDS ORDERED: DIGOXIN 0.5 MG/2 ML VIAL IV PUSH ONE
[2017-10-22] MEDS: METOPROLOL TARTRATE 5 MG/5 ML VIAL IV PUSH PRN (01:58)
[2017-10-22] MEDS: CHLORHEXIDINE GLUCONATE 2 % 1 PACK (2 CLOTHS) TOP SCH (03:47)
[2017-10-22] MEDS: PANTOPRAZOLE SODIUM 40 MG VIAL IV PUSH SCH ×2 (06:11→18:48)
[2017-10-22] MEDS: DOCUSATE SODIUM 50 MG/SENNA 8.6 MG TAB PO SCH ×2 (06:58→20:09)
[2017-10-22] MEDS: SODIUM CHLOR 0.9% 1000 ML INJ 1,000 ML IV SCH ×2 (07:30→20:34)
[2017-10-22] MEDS: SODIUM CHLORIDE 0.9% FLUSH 10 ML FLUSH IV FLUSH SCH ×2 (08:00→20:34)
[2017-10-22] MEDS: PRAVASTATIN SOD 20 MG TAB PO SCH (08:00)
[2017-10-22] MEDS ORDERED: LIDOCAINE HCL 1% PF 5 ML SYRINGE OTHER ONE (12:00)
[2017-10-22] MEDS ORDERED: PHENYLEPH/NS 1000 MCG/10 ML SYR IV ONE (12:00)
[2017-10-22] MEDS ORDERED: PROPOFOL 200 MG/20 ML AMP IV ONE (12:00)
[2017-10-22] MEDS ORDERED: CALCIUM GLUCONATE INJ 1 GM in DEXTROSE 5% IN WATER 100ML INJ 100 ML IV ONE ×2 (13:00)
--- NOTE | 2017-10-22 13:03 | HHI.CCPN ---
Subjective Remarks/Hospital Course 10/21: 77-year-old gentleman with history of atrial fibrillation on Eliquis presents complaining of diarrhea of dark stool and weakness. The symptoms are started a couple days ago. He had 3 episodes today. He denies vomiting or abdominal pain or presyncopal symptoms. Symptom severity is moderate. No alleviating factors. He does not know if he is currently taking or recently take antibiotics. He denies prior diarrhea issues or colon problems. 10/22: No events over the night. Patient still had some melanotic stool, no hematemesis and no hematochezia. Patient feels okay, denies CP, shortness of breath, palpitations, abdominal pain. Afebrile with a T-max of 99.2. Urine output over the last 24 hours approximately 1400 mL. A total of 6 units PRBC and repeat hemoglobin has been ordered. ROS -as above. In addition patient denies fever, chills, weakness, dizziness, no [place], no CP, palpitations, no dyspnea, cough or wheezes, no abdominal pain, no nausea, no vomiting, no dysuria or urinary frequency Objective Vital Signs Date Time Temp Pulse Resp B/P (MAP) Pulse Ox O2 Delivery O2 Flow Rate FiO2 10/22/17 12:00 108 10/22/17 09:15 98.4 22 96 10/22/17 08:45 Nasal Cannula 2.00 10/22/17 08:00 130/66 (87) Intake and Output 10/22/17 10/22/17 10/23/17 08:00 16:00 00:00 Intake Total 3478 ml 400 ml Output Total 1400 ml Balance 2078 ml 400 ml Result Diagram: 10/22/17 0053 10/21/17 1448 Objective Remarks GENERAL: Elderly gentleman, awake, resting, in no distress. SKIN: Warm and dry. HEAD: Normocephalic. EYES: Pupils are equal and reactive. Sclerae anicteric. NECK: Supple, trachea midline. No JVD or lymphadenopathy. CARDIOVASCULAR: Heart sounds are regular. Systolic ejection murmur heard at the apex. RESPIRATORY: Breath sounds equal bilaterally. No accessory muscle use. No wheezes, good air entry. GASTROINTESTINAL: Abdomen soft, non-tender, distended. Hyperactive bowel sounds. No hepatomegaly, no splenomegaly. MUSCULOSKELETAL: 3+ edema. Chronic stasis changes.. Extremities are warm and well-perfused. Difficult to palpate peripheral pulses. NEURO: Awake, alert, oriented. Motor 5 out of 5 overall extremities. A/P Assessment and Plan 1. Acute blood loss anemia -received a total of 6 units PRBC 2. Acute GI bleed 3. Coagulopathy due to home Eliquis -received K central and vitamin K 4. A. fib -rate reasonably controlled, required 1 dose of digoxin 5. Mild TEVIN 6. Hyperkalemia 7. History of hypertension 8. History of hyperlipidemia 9. dCHF 1. Continue PPI IV twice daily 2. Patient scheduled to undergo endoscopy and colonoscopy this p.m. 3. Repeat H&H now 4. Vitamin K 1 5. Lasix IV 1 dose to avoid volume overload setting of receiving 6 unit PRBC transfusion 6. Repeat potassium now 7. 1 dose of calcium gluconate 8. Restart home metoprolol and Cardizem when BP allows 9. Digoxin if needed for rate control for now 10. GI prophylaxis addressed above, mechanical DVT prophylaxis with SCDs. Hold pharmacological DVT prophylaxis in the setting of acute GI bleed No family present at bedside. El Murphy MD Oct 22, 2017 13:03
[2017-10-22] MEDS ORDERED: FUROSEMIDE 40 MG/4 ML VIAL IV PUSH ONE (13:15)
[2017-10-22 13:39] LABS: AUTOMATED NEUTROPHIL # 9.6 TH/MM3 (1.8-7.7); BASOPHIL # 0.1 TH/MM3 (0-0.2); BASOPHIL % 0.7 % (0.0-2.0); EOSINOPHIL # 0.2 TH/MM3 (0-0.4); EOSINOPHIL % 1.3 % (0.0-4.0); HEMATOCRIT 24.1 % (39.0-51.0); HEMOGLOBIN 7.9 GM/DL (13.0-17.0); LYMPH % 11.4 % (9.0-44.0); LYMPHOCYTE # 1.5 TH/MM3 (1.0-4.8); MEAN CELL VOLUME 76.1 FL (80.0-100.0); MEAN CORPUSCULAR HEMOGLOBIN 24.9 PG (27.0-34.0); MEAN CORPUSCULAR HGB CONC 32.7 % (32.0-36.0); MONO % 11.5 % (0.0-8.0); MONOCYTE # 1.5 TH/MM3 (0-0.9); NEUT % 75.1 % (16.0-70.0); PLATELET COUNT 215 TH/MM3 (150-450); RED BLOOD COUNT 3.16 MIL/MM3 (4.50-5.90); RED CELL DISTRIBUTION WIDTH 25.2 % (11.6-17.2); WHITE BLOOD COUNT 12.8 TH/MM3 (4.0-11.0)
[2017-10-22 13:43] LABS: INTERNATIONAL NORMALIZED RATIO 1.2 RATIO
[2017-10-22 14:00] LABS: MAGNESIUM 1.9 MG/DL (1.5-2.5); PHOSPHORUS 2.6 MG/DL (2.5-4.9)
[2017-10-22] MEDS ORDERED: PHYTONADIONE 10 MG/ML VIAL SQ ONE (14:00)
[2017-10-22 14:10] LABS: ALBUMIN 2.1 GM/DL (3.4-5.0); ALKALINE PHOSPHATASE 56 U/L (45-117); ALT (GPT) 12 U/L (12-78); AST (GOT) 13 U/L (15-37); BICARBONATE 30.7 MEQ/L (21.0-32.0); BLOOD UREA NITROGEN 33 MG/DL (7-18); CALCIUM 7.5 MG/DL (8.5-10.1); CHLORIDE 110 MEQ/L (98-107); CREATININE 0.73 MG/DL (0.60-1.30); GLOMERULAR FILTRATION RATE 104 ML/MIN (>89); GLUCOSE,RANDOM 99 MG/DL (74-106); SODIUM (NA) 148 MEQ/L (136-145); TOTAL BILIRUBIN ADULT 1.8 MG/DL (0.2-1.0); TOTAL PROTEIN 4.9 GM/DL (6.4-8.2)
--- NOTE | 2017-10-22 14:15 | EKG ---
Date Performed: 10/22/2017 Time Performed: 10:53:38 PTAGE: 77 years EKG: Atrial fibrillation with rapid ventricular response with frequent multifocal PVCs. --- Susp ect arm lead reversal - only aVF, V1-V6 analyzed --- IV conduction defect Extensive ST-T changes may be due to myocardial ischemia Low QRS voltages in precordial leads Abnormal ECG PREVIOUS TRACING : 07/05/2016 17.29 Compared to previous tracing, rate increased, QTc decreased DOCTOR: Gamaliel Diggs Interpretating Date/Time 10/22/2017 14:13:56
[2017-10-22 14:28] LABS: STOMATOCYTES 1+ (NORMAL)
--- NOTE | 2017-10-22 14:53 | PD.CONS ---
HPI History of Present Illness This is a 77 year old male who was admitted on 10/21/2017 with dark diarrhea stools and weakness. Onset of symptoms was several days ago which have continued through day of admission 3 according to the record patient denied any abdominal pain but did note cramping severity was moderate. Currently patient is resting in the bed he is awake answering simple questions appropriately. Patient notes that he had been taken Aleve and Motrin quite a bit in combination because he was unable to sleep. Initial hemoglobin on admission was 4.7 and patient received 5 units of packed RBCs. On 428 hemoglobin is now 7.1. C. difficile stool study was negative. Initially according to the record patient denied any nausea or vomiting but he did state during my exam that he did vomit one time and it was noted to be dark emesis but unknown to him whether it was coffee-ground consistency or not. Labs show bilirubin is 0.6, gastroenterology was consulted for GI bleed and symptomatic anemia. [facility] Past Medical History Recently taken Aleve and Motrin for insomnia Some of this information was gathered from the chart Atrial fibrillation on Eliquis Dark melena stools recent Cataracts Kidney stone Hypertension Hyperlipidemia Congestive heart failure Obesity Possible sleep apnea Past Surgical History Cataract surgery Hernia repair Prostate surgery T and A Coded Allergies: No Known Allergies (Verified , 01/03/16) Medications Administered Medications Medications (Trade) Dose Ordered Sig/Clark Route PRN Reason Start Time Stop Time Status Last Admin Dose Admin Tamsulosin HCl (Flomax) 0.4 mg HS PO 10/21/17 21:00 10/21/17 22:16 Pravastatin Sodium (Pravachol) 20 mg DAILY PO 10/22/17 09:00 10/22/17 08:00 Sodium Chloride 1,000 ml @ 84 mls/hr [id number] IV 10/21/17 18:52 10/22/17 07:30 Sodium Chloride (NS Flush) 2 ml BID IV FLUSH 10/21/17 21:00 10/22/17 08:00 Pantoprazole Sodium (Protonix Inj) 40 mg Q12H IV PUSH 10/21/17 19:00 10/22/17 06:11 Ondansetron HCl (Zofran Inj) 4 mg Q6H PRN IV PUSH NAUSEA OR VOMITING 10/21/17 19:00 10/21/17 22:49 Chlorhexidine Gluconate (Chlorhexidine 2% Cloth) 3 pack Taper DAILY@04 TOP 10/22/17 04:00 10/18/18 03:59 10/22/17 03:47 Metoprolol Tartrate (Lopressor Inj) 5 mg Q6H PRN IV PUSH HR >100 10/22/17 02:00 10/22/17 01:58 Family History Unknown for colon cancer Social History No smoking Drinks up to 10 beers a week No illicit drug use Patient is Review of Systems Constitutional: COMPLAINS OF: Fatigue Gastrointestinal: COMPLAINS OF: Black stools, Nausea, Vomiting (1 dark emesis) GI Exam Vitals I&O Vital Signs Date Time Temp Pulse Resp B/P (MAP) Pulse Ox O2 Delivery O2 Flow Rate FiO2 10/22/17 14:00 105 10/22/17 12:00 98.6 122 21 127/58 (81) 96 10/22/17 12:00 108 10/22/17 10:00 96 10/22/17 09:15 98.4 112 22 96 10/22/17 08:45 97 Nasal Cannula 2.00 10/22/17 08:00 98.4 114 22 130/66 (87) 96 10/22/17 08:00 114 10/22/17 06:16 98.4 100 20 115/61 98 10/22/17 06:04 98.4 114 18 115/61 98 10/22/17 06:00 117 10/22/17 04:01 98 Nasal Cannula 2.00 10/22/17 04:00 125 10/22/17 04:00 98.4 125 21 131/60 (83) 99 10/22/17 03:48 98.2 108 22 122/61 98 10/22/17 03:27 98.4 118 29 108/51 93 10/22/17 02:00 95 10/22/17 00:00 98.3 128 20 137/64 (88) 97 10/22/17 00:00 128 10/21/17 23:35 98 Nasal Cannula 2.00 10/21/17 22:00 95 10/21/17 21:17 96 Nasal Cannula 1.50 10/21/17 20:57 10/21/17 20:01 97.9 91 18 119/56 99 10/21/17 19:45 97.9 94 18 122/57 10/21/17 19:36 97.9 81 18 113/57 10/21/17 18:49 99.2 93 19 120/56 (77) 100 Nasal Cannula 2.00 10/21/17 18:35 98.7 80 18 118/56 (76) 97 Nasal Cannula 2.00 10/21/17 18:17 98.5 75 19 116/56 (76) 98 Nasal Cannula 2.00 10/21/17 17:56 98.7 83 17 99/52 (68) 100 Nasal Cannula 2.00 10/21/17 17:43 96 Nasal Cannula 2.00 10/21/17 17:33 84 16 105/55 (72) 95 Room Air 10/21/17 17:33 95 Room Air 10/21/17 16:00 98.7 81 17 96/48 (64) 97 Room Air 10/21/17 15:56 98.7 I/O 10/21/17 10/21/17 10/21/17 10/22/17 10/22/17 10/22/17 07:00 15:00 23:00 07:00 15:00 23:00 Intake Total 2675 ml 3327 ml 551 ml Output Total 1400 ml Balance 2675 ml 1927 ml 551 ml Intake Oral 2500 ml IV Total 1000 ml 397 ml 151 ml Packed Cells 1600 ml 400 ml 400 ml Blood Product IV Normal Saline Flush 75 ml 30 ml Output Urine Total 1400 ml # Bowel Movements 6 Laboratory Test 10/21/17 14:42 10/21/17 14:48 10/21/17 20:45 10/22/17 00:53 Stool C. difficile Toxin (PCR) NEGATIVE Stl C. difficile Toxin Epiderm 027 PRESUMPTIVE NEGATIVE White Blood Count 10.8 TH/MM3 Red Blood Count 2.44 MIL/MM3 Hemoglobin 4.7 GM/DL 7.1 GM/DL Hematocrit 15.8 % Mean Corpuscular Volume 64.7 FL Mean Corpuscular Hemoglobin 19.2 PG Mean Corpuscular Hemoglobin Concent 29.7 % Red Cell Distribution Width 20.2 % Platelet Count 286 TH/MM3 Mean Platelet Volume 7.1 FL Neutrophils (%) (Auto) 82.9 % Lymphocytes (%) (Auto) 8.8 % Monocytes (%) (Auto) 8.0 % Eosinophils (%) (Auto) 0.0 % Basophils (%) (Auto) 0.3 % Neutrophils # (Auto) 9.0 TH/MM3 Lymphocytes # (Auto) 1.0 TH/MM3 Monocytes # (Auto) 0.9 TH/MM3 Eosinophils # (Auto) 0.0 TH/MM3 Basophils # (Auto) 0.0 TH/MM3 CBC Comment AUTO DIFF Differential Comment AUTO DIFF CONFIRMED Blood Urea Nitrogen 58 MG/DL Creatinine 1.38 MG/DL Random Glucose 112 MG/DL Total Protein 5.3 GM/DL Albumin 2.1 GM/DL Calcium Level 7.6 MG/DL Alkaline Phosphatase 61 U/L Aspartate Amino Transf (AST/SGOT) 9 U/L Alanine Aminotransferase (ALT/SGPT) 14 U/L Total Bilirubin 0.6 MG/DL Sodium Level 144 MEQ/L Potassium Level 5.9 MEQ/L Chloride Level 107 MEQ/L Carbon Dioxide Level 27.0 MEQ/L Anion Gap 10 MEQ/L Estimat Glomerular Filtration Rate 50 ML/MIN Nasal Screen MRSA (PCR) MRSA NOT DETECTED Test 10/22/17 13:17 White Blood Count 12.8 TH/MM3 Red Blood Count 3.16 MIL/MM3 Hemoglobin 7.9 GM/DL Hematocrit 24.1 % Mean Corpuscular Volume 76.1 FL Mean Corpuscular Hemoglobin 24.9 PG Mean Corpuscular Hemoglobin Concent 32.7 % Red Cell Distribution Width 25.2 % Platelet Count 215 TH/MM3 Mean Platelet Volume 7.0 FL Neutrophils (%) (Auto) 75.1 % Lymphocytes (%) (Auto) 11.4 % Monocytes (%) (Auto) 11.5 % Eosinophils (%) (Auto) 1.3 % Basophils (%) (Auto) 0.7 % Neutrophils # (Auto) 9.6 TH/MM3 Lymphocytes # (Auto) 1.5 TH/MM3 Monocytes # (Auto) 1.5 TH/MM3 Eosinophils # (Auto) 0.2 TH/MM3 Basophils # (Auto) 0.1 TH/MM3 CBC Comment AUTO DIFF Differential Comment AUTO DIFF CONFIRMED Stomatocytes 1+ Prothrombin Time 12.0 SEC Prothromb Time International Ratio 1.2 RATIO Activated Partial Thromboplast Time 22.6 SEC Blood Urea Nitrogen 33 MG/DL Creatinine 0.73 MG/DL Random Glucose 99 MG/DL Total Protein 4.9 GM/DL Albumin 2.1 GM/DL Calcium Level 7.5 MG/DL Alkaline Phosphatase 56 U/L Aspartate Amino Transf (AST/SGOT) 13 U/L Alanine Aminotransferase (ALT/SGPT) 12 U/L Total Bilirubin 1.8 MG/DL Sodium Level 148 MEQ/L Potassium Level 4.0 MEQ/L Chloride Level 110 MEQ/L Carbon Dioxide Level 30.7 MEQ/L Anion Gap 7 MEQ/L Estimat Glomerular Filtration Rate 104 ML/MIN Phosphorus Level 2.6 MG/DL Magnesium Level 1.9 MG/DL Physical Examination HEENT: Obese, normocephalic; atraumatic; no jaundice. Speaks understandable no slurring NECK: Neck is supple, short, obese CHEST: Chest diminished breath sounds in his bases possibly secondary to his habitus, no audible rhonchi CARDIAC: Irregular, controlled rate ABDOMEN: Large, taut, nondistended, nontender; no hepatosplenomegaly; bowel sounds are present in all four quadrants. EXTREMITIES: Mild lower extremity edema. SKIN: Normal; no rash; no jaundice. 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 He did note 1 nausea and vomiting episode with dark emesis but unknown if it was coffee-ground or not. Patient did note taking a combination of a Aleve and ibuprofen for insomnia but did not remember exactly how long he had been taking it. Patient's initial hemoglobin was 4.7 and was transfused with 5 units of packed RBCs now 7.1. Patient was prepped this past p.m. and early a.m. for colonoscopy and EGD Plan EGD and colonoscopy today, patient is status post fair prep according to nursing staff. Patient's was given the rest of his prep this a.m. Monitor labs with special attention to hemoglobin and hematocrit Transfuse as necessary Supportive care Further recommendations to follow Patient was seen per myself and Dr. Martinez, note was written on his behalf Problem Qualifiers (1) Anemia: Qualified Codes: D62 - Acute posthemorrhagic anemia (2) GI bleed: Qualified Codes: K92.2 - Gastrointestinal hemorrhage, unspecified Keiko Sheth Oct 22, 2017 14:53
--- NOTE | 2017-10-22 15:01 | PD.PROCEDR ---
GI Procedure PROCEDURE PERFORMED EGD with biopsy Colonoscopy INDICATION FOR PROCEDURE GI bleed Anemia PROCEDURE: The procedure, risks and benefits were discussed with Mr. Mcgill and informed consent was obtained. Anesthesia sedated him with Diprivan. He was placed in the left lateral decubitus position. EGD: The Pentax videoscope was introduced through the oropharynx and advanced to the second portion of the duodenum under direct visualization. Retroflexion was performed in the stomach. Biopsy from the antrum to rule out H. pylori, and from gastric ulcer in the fundus of the stomach Colonoscopy: The Pentax videoscope was introduced through the rectum and advanced to cecum which was identified by the ileocecal valve and appendiceal orifice. Retroflexion was performed in the rectum. Colonic prep was fair ESTIMATED BLOOD LOSS: None SPECIMENS REMOVED: Gastric ulcer in the fundus of the stomach Biopsy from the EG junction COMPLICATIONS: None IMPRESSION: Upper endoscopy Irregular Z line biopsy was done Multiple deep ulcers in the body of the stomach and the fundus biopsy was done Large duodenal ulcer in the bulb None of these ulcers are bleeding Colonoscopy showed diverticulosis and internal hemorrhoids, no active bleeding PLAN: No NSAIDs Protonix 40 mg daily Follow-up biopsy Monitor hemoglobin with packed RBC as needed Hold anticoagulation for a few days Repeat upper endoscopy in 6 weeks I will check gastrin level Lita Kaufman MD Oct 22, 2017 15:01
[2017-10-22] MEDS ORDERED: MIDAZOLAM HCL 2 MG/2 ML VIAL ONE (15:29)
[2017-10-22] MEDS: TAMSULOSIN HCL 0.4 MG CAP PO SCH (20:33)
[2017-10-22 20:53] LABS: AUTOMATED NEUTROPHIL # 9.4 TH/MM3 (1.8-7.7); BASOPHIL # 0.1 TH/MM3 (0-0.2); EOSINOPHIL # 0.3 TH/MM3 (0-0.4); EOSINOPHIL % 2.3 % (0.0-4.0); HEMATOCRIT 25.2 % (39.0-51.0); LYMPH % 9.8 % (9.0-44.0); LYMPHOCYTE # 1.2 TH/MM3 (1.0-4.8); MEAN CELL VOLUME 75.8 FL (80.0-100.0); MEAN CORPUSCULAR HEMOGLOBIN 24.2 PG (27.0-34.0); MEAN CORPUSCULAR HGB CONC 31.9 % (32.0-36.0); MEAN PLATELET VOLUME 6.9 FL (7.0-11.0); MONO % 12.6 % (0.0-8.0); MONOCYTE # 1.6 TH/MM3 (0-0.9); NEUT % 74.3 % (16.0-70.0); PLATELET COUNT 226 TH/MM3 (150-450); RED BLOOD COUNT 3.32 MIL/MM3 (4.50-5.90); RED CELL DISTRIBUTION WIDTH 25.7 % (11.6-17.2); WHITE BLOOD COUNT 12.7 TH/MM3 (4.0-11.0)
[2017-10-22 21:42] LABS: BANDS 2 % (0-6); LYMPHOCYTES 5 % (9-44); METAMYELOCYTES 1 % (0-1); MONOCYTES 10 % (0-8); MYELOCYTES 2 % (0-0); NEUTROPHIL # MANUAL DIFF 10.8 TH/MM3 (1.8-7.7); POLYS (SEG NEUTROPHILS) 80 % (16-70)
[2017-10-22 21:43] LABS: TOXIC GRANULATION 3+ (NORMAL)
[2017-10-22 21:46] LABS: OVALOCYTES 1+ (NORMAL)
[2017-10-22 21:47] LABS: ACANTHOCYTES OCC (NORMAL)
[2017-10-23] VITALS (14 sets, daily range): BP systolic 130–154; BP diastolic 60–68; PULSE 93–123; RESP 22–31; TEMP 98.9–99.6; O2SAT 93–98
[2017-10-23] MEDS: METOPROLOL TARTRATE 5 MG/5 ML VIAL IV PUSH PRN ×3 (01:28→15:09)
[2017-10-23] MEDS: CHLORHEXIDINE GLUCONATE 2 % 1 PACK (2 CLOTHS) TOP SCH (04:00)
[2017-10-23 04:35] LABS: AUTOMATED NEUTROPHIL # 8.6 TH/MM3 (1.8-7.7); BASOPHIL # 0.1 TH/MM3 (0-0.2); BASOPHIL % 0.9 % (0.0-2.0); EOSINOPHIL # 0.4 TH/MM3 (0-0.4); EOSINOPHIL % 3.4 % (0.0-4.0); HEMATOCRIT 24.1 % (39.0-51.0); HEMOGLOBIN 7.8 GM/DL (13.0-17.0); LYMPH % 12.2 % (9.0-44.0); LYMPHOCYTE # 1.4 TH/MM3 (1.0-4.8); MEAN CELL VOLUME 76.7 FL (80.0-100.0); MEAN CORPUSCULAR HEMOGLOBIN 24.7 PG (27.0-34.0); MEAN CORPUSCULAR HGB CONC 32.2 % (32.0-36.0); MEAN PLATELET VOLUME 6.6 FL (7.0-11.0); MONO % 11.3 % (0.0-8.0); MONOCYTE # 1.3 TH/MM3 (0-0.9); NEUT % 72.2 % (16.0-70.0); PLATELET COUNT 214 TH/MM3 (150-450); RED BLOOD COUNT 3.14 MIL/MM3 (4.50-5.90); RED CELL DISTRIBUTION WIDTH 25.6 % (11.6-17.2); WHITE BLOOD COUNT 11.8 TH/MM3 (4.0-11.0)
[2017-10-23 04:51] LABS: INTERNATIONAL NORMALIZED RATIO 1.2 RATIO
[2017-10-23 04:53] LABS: ALBUMIN 2.2 GM/DL (3.4-5.0); AST (GOT) 13 U/L (15-37); CALCIUM 7.6 MG/DL (8.5-10.1); CHLORIDE 106 MEQ/L (98-107); CREATININE 0.68 MG/DL (0.60-1.30); GLOMERULAR FILTRATION RATE 113 ML/MIN (>89); GLUCOSE,RANDOM 103 MG/DL (74-106); MAGNESIUM 1.9 MG/DL (1.5-2.5); SODIUM (NA) 144 MEQ/L (136-145)
[2017-10-23 05:02] LABS: ALKALINE PHOSPHATASE 56 U/L (45-117); ALT (GPT) 14 U/L (12-78); BLOOD UREA NITROGEN 18 MG/DL (7-18); PHOSPHORUS 2.9 MG/DL (2.5-4.9); TOTAL PROTEIN 5.1 GM/DL (6.4-8.2)
[2017-10-23] MEDS: SODIUM CHLOR 0.9% 1000 ML INJ 1,000 ML IV SCH (05:57)
[2017-10-23] MEDS: PANTOPRAZOLE SODIUM 40 MG VIAL IV PUSH SCH ×2 (05:57→18:52)
[2017-10-23] MEDS: DOCUSATE SODIUM 50 MG/SENNA 8.6 MG TAB PO SCH ×2 (07:12→21:21)
[2017-10-23] MEDS: PRAVASTATIN SOD 20 MG TAB PO SCH (09:33)
[2017-10-23] MEDS: SODIUM CHLORIDE 0.9% FLUSH 10 ML FLUSH IV FLUSH SCH ×2 (09:33→21:21)
--- NOTE | 2017-10-23 10:30 | HHI.CCPN ---
Subjective Remarks/Hospital Course 10/21: 77-year-old gentleman with history of atrial fibrillation on Eliquis presents complaining of diarrhea of dark stool and weakness. The symptoms are started a couple days ago. He had 3 episodes today. He denies vomiting or abdominal pain or presyncopal symptoms. Symptom severity is moderate. No alleviating factors. He does not know if he is currently taking or recently take antibiotics. He denies prior diarrhea issues or colon problems. 10/22: No events over the night. Patient still had some melanotic stool, no hematemesis and no hematochezia. Patient feels okay, denies CP, shortness of breath, palpitations, abdominal pain. Afebrile with a T-max of 99.2. Urine output over the last 24 hours approximately 1400 mL. A total of 6 units PRBC and repeat hemoglobin has been ordered. 10/23: Patient did well over the night. T-max of 99.3. No additional melena. Patient underwent EGD and colonoscopy yesterday and he was found to have multiple ulcers in the stomach as well as large duodenal ulcer with no source of active bleeding was identified. Colonoscopy showed diverticulosis and hemorrhoids per GI report. Patient feels fine, denies any chest pain, dyspnea, palpitations, abdominal pain. No nausea and vomiting. Patient tolerating clear liquid diet. Objective Vital Signs Date Time Temp Pulse Resp B/P (MAP) Pulse Ox O2 Delivery O2 Flow Rate FiO2 10/23/17 10:00 123 10/23/17 08:21 95 Nasal Cannula 2.00 10/23/17 08:00 99.6 24 136/63 (87) Intake and Output 10/23/17 10/23/17 10/24/17 08:00 16:00 00:00 Intake Total 2602 ml Output Total 1375 ml Balance 1227 ml Result Diagram: 10/23/17 0415 10/23/17 0415 Objective Remarks GENERAL: Elderly gentleman, awake, resting, in no distress. SKIN: Warm and dry. HEAD: Normocephalic. EYES: Pupils are equal and reactive. Sclerae anicteric. NECK: Supple, no rigidity. No JVD. CARDIOVASCULAR: Regular S1 and S2. Systolic ejection murmur heard at the apex. RESPIRATORY: Hear breath sounds bilateral, no wheezes. Good air entry. GASTROINTESTINAL: Abdomen soft, non-tender, distended. Hyperactive bowel sounds. MUSCULOSKELETAL: 3+ edema. Chronic stasis changes.. Extremities are warm and well-perfused. Difficult to palpate peripheral pulses. NEURO: Awake, alert, oriented. Motor 5 out of 5 overall extremities. A/P Assessment and Plan 1. Acute blood loss anemia -received a total of 6 units PRBC, hemoglobin stable so far 2. Acute GI bleed -post EGD and colonoscopy, found to have multiple ulcers in the stomach as well as duodenal ulcer but no active source of bleeding identified 3. Coagulopathy due to home Eliquis -received K central and vitamin K 4. A. fib -rate reasonably controlled, required 1 dose of digoxin 5. Mild TEVIN -resolved 6. Hyperkalemia -resolved 7. History of hypertension 8. History of hyperlipidemia 9. dCHF 1. Continue PPI IV twice daily 2. Monitor hemoglobin tonight 3. Received vitamin K 2 4. Gradually restart home metoprolol and Cardizem when BP allows 5. Advance diet if okay with GI 6. GI prophylaxis addressed above, mechanical DVT prophylaxis with SCDs. Hold pharmacological DVT prophylaxis in the setting of acute GI bleed No family present at bedside. We will transition care to the hospitalist service. Please call back with any questions or if additional help is needed. El Murphy MD Oct 23, 2017 10:30
[2017-10-23] MEDS: FUROSEMIDE 40 MG TAB PO SCH (10:52)
--- NOTE | 2017-10-23 12:37 | HHI.GIFU ---
Subjective Remarks Resting in bed. tolerating clears. no n/v, hematemesis. Objective Vitals I&O Vital Signs Date Time Temp Pulse Resp B/P (MAP) Pulse Ox O2 Delivery O2 Flow Rate FiO2 10/23/17 10:00 123 10/23/17 08:21 95 Nasal Cannula 2.00 10/23/17 08:00 99.6 119 24 136/63 (87) 96 10/23/17 08:00 119 10/23/17 06:00 121 10/23/17 04:00 104 10/23/17 04:00 104 31 133/63 (86) 98 10/23/17 02:00 98 10/23/17 00:00 95 10/23/17 00:00 99.0 95 22 147/64 (91) 97 10/22/17 22:00 110 10/22/17 20:38 95 Nasal Cannula 2.00 10/22/17 20:00 118 10/22/17 20:00 99.3 118 21 142/66 (91) 95 10/22/17 18:00 114 10/22/17 16:00 102 10/22/17 16:00 98.5 102 18 134/60 (84) 99 10/22/17 15:30 99.3 122 16 148/66 (93) 99 10/22/17 15:00 99.3 112 16 110/62 (78) 98 10/22/17 14:00 105 I/O 10/22/17 10/22/17 10/22/17 10/23/17 10/23/17 10/23/17 07:00 15:00 23:00 07:00 15:00 23:00 Intake Total 3327 ml 551 ml 1160 ml 2602 ml Output Total 1400 ml 1200 ml 1375 ml Balance 1927 ml 551 ml -40 ml 1227 ml Intake Oral 2500 ml 900 ml IV Total 397 ml 151 ml 110 ml 2602 ml Packed Cells 400 ml 400 ml Blood Product IV Normal Saline Flush 30 ml Other 150 ml Output Urine Total 1400 ml 1200 ml 1375 ml # Bowel Movements 6 5 0 Laboratory Laboratory Tests Test 10/22/17 13:17 10/22/17 20:31 10/23/17 04:15 White Blood Count 12.8 12.7 11.8 Red Blood Count 3.16 3.32 3.14 Hemoglobin 7.9 8.0 7.8 Hematocrit 24.1 25.2 24.1 Mean Corpuscular Volume 76.1 75.8 76.7 Mean Corpuscular Hemoglobin 24.9 24.2 24.7 Mean Corpuscular Hemoglobin Concent 32.7 31.9 32.2 Red Cell Distribution Width 25.2 25.7 25.6 Platelet Count 215 226 214 Mean Platelet Volume 7.0 6.9 6.6 Neutrophils (%) (Auto) 75.1 74.3 72.2 Lymphocytes (%) (Auto) 11.4 9.8 12.2 Monocytes (%) (Auto) 11.5 12.6 11.3 Eosinophils (%) (Auto) 1.3 2.3 3.4 Basophils (%) (Auto) 0.7 1.0 0.9 Neutrophils # (Auto) 9.6 9.4 8.6 Lymphocytes # (Auto) 1.5 1.2 1.4 Monocytes # (Auto) 1.5 1.6 1.3 Eosinophils # (Auto) 0.2 0.3 0.4 Basophils # (Auto) 0.1 0.1 0.1 CBC Comment AUTO DIFF AUTO DIFF AUTO DIFF Differential Comment AUTO DIFF CONFIRMED FINAL DIFF MANUAL AUTO DIFF CONFIRMED Stomatocytes 1+ Prothrombin Time 12.0 12.0 Prothromb Time International Ratio 1.2 1.2 Activated Partial Thromboplast Time 22.6 Blood Urea Nitrogen 33 18 Creatinine 0.73 0.68 Random Glucose 99 103 Total Protein 4.9 5.1 Albumin 2.1 2.2 Calcium Level 7.5 7.6 Alkaline Phosphatase 56 56 Aspartate Amino Transf (AST/SGOT) 13 13 Alanine Aminotransferase (ALT/SGPT) 12 14 Total Bilirubin 1.8 1.0 Sodium Level 148 144 Potassium Level 4.0 4.2 Chloride Level 110 106 Carbon Dioxide Level 30.7 33.0 Anion Gap 7 5 Estimat Glomerular Filtration Rate 104 113 Phosphorus Level 2.6 2.9 Magnesium Level 1.9 1.9 Differential Total Cells Counted 100 Neutrophils % (Manual) 80 Band Neutrophils % 2 Lymphocytes % 5 Monocytes % 10 Neutrophils # (Manual) 10.8 Metamyelocytes 1 Myelocytes 2 Toxic Granulation 3+ Platelet Estimate NORMAL Platelet Morphology Comment NORMAL Ovalocytes 1+ Acanthocytes OCC Fibrinogen 282 Physical Exam HEENT: PERRL; normocephalic; atraumatic; no jaundice. CHEST: CTA CARDIAC: RRR ABDOMEN: Soft, obese, nontender; no hepatosplenomegaly; bowel sounds are present in all four quadrants. EXTREMITIES: No clubbing, cyanosis, or edema. SKIN: Normal; no rash; no jaundice. TREE PLANTER: No focal deficits; alert and oriented times three. Assessment and Plan Assessment: (1) Obesity ICD Codes: E66.9 - Obesity, unspecified Status: Acute (2) Anemia ICD Codes: D64.9 - Anemia, unspecified Status: Acute (3) GI bleed ICD Codes: K92.2 - Gastrointestinal hemorrhage, unspecified Status: Acute Plan Symptomatic anemia 77-year-old obese male who started having dark melena stools 2 days before his admission and has continued through his admission day. He did note 1 nausea and vomiting episode with dark emesis but unknown if it was coffee-ground or not. Patient did note taking a combination of a Aleve and ibuprofen for insomnia but did not remember exactly how long he had been taking it. Patient's initial hemoglobin was 4.7 and was transfused with 5 units of packed RBCs now 7.1. Patient was prepped this past p.m. and early a.m. for colonoscopy and EGD 10/23/17 s/p EGD and colonoscopy with findings of irr z line, mult ulcers stomach , large duodenal ulcer, no bleeding diverticulosis, hemorrhoids. HH is stable. gastrin level pending. Plan await bx await gastrin level adv diet to full liquid BID ppi EGD 6 mos CBC am Patient was seen per myself and Dr. Martinez, note was written on his behalf Problem Qualifiers (1) Anemia: Qualified Codes: D62 - Acute posthemorrhagic anemia (2) GI bleed: Qualified Codes: K92.2 - Gastrointestinal hemorrhage, unspecified Tita Roldan Oct 23, 2017 12:37
[2017-10-23] MEDS ORDERED: RESP: LEVALBUTEROL HYDROCHLORIDE 1.25 MG/3 ML NEB (SCH) NEB (16:00)
[2017-10-23] MEDS: RESP: ALBUTEROL 2.5 MG/IPRATROPIUM 0.5 MG NEB (PRN) INH (17:14)
[2017-10-23 20:33] LABS: AUTOMATED NEUTROPHIL # 8.5 TH/MM3 (1.8-7.7); BASOPHIL # 0.1 TH/MM3 (0-0.2); BASOPHIL % 0.7 % (0.0-2.0); EOSINOPHIL # 0.3 TH/MM3 (0-0.4); EOSINOPHIL % 2.4 % (0.0-4.0); HEMATOCRIT 23.7 % (39.0-51.0); HEMOGLOBIN 7.6 GM/DL (13.0-17.0); LYMPHOCYTE # 2.5 TH/MM3 (1.0-4.8); MEAN CELL VOLUME 77.6 FL (80.0-100.0); MEAN CORPUSCULAR HEMOGLOBIN 24.8 PG (27.0-34.0); MEAN CORPUSCULAR HGB CONC 31.9 % (32.0-36.0); MEAN PLATELET VOLUME 7.1 FL (7.0-11.0); MONO % 11.9 % (0.0-8.0); MONOCYTE # 1.5 TH/MM3 (0-0.9); PLATELET COUNT 225 TH/MM3 (150-450); RED BLOOD COUNT 3.06 MIL/MM3 (4.50-5.90); WHITE BLOOD COUNT 12.9 TH/MM3 (4.0-11.0)
[2017-10-23] MEDS: RESP: LEVALBUTEROL HYDROCHLORIDE 1.25 MG/3 ML NEB (SCH) NEB (21:16)
[2017-10-23] MEDS: TAMSULOSIN HCL 0.4 MG CAP PO SCH (21:21)
[2017-10-23] MEDS: METOPROLOL TARTRATE 50 MG TAB PO SCH (21:21)
[2017-10-23 22:17] LABS: OVALOCYTES 1+ (NORMAL)
[2017-10-24] VITALS (22 sets, daily range): BP systolic 96–167; BP diastolic 53–89; PULSE 92–134; RESP 18–57; TEMP 98.5–99.6; O2SAT 72–97
[2017-10-24] MEDS: RESP: LEVALBUTEROL HYDROCHLORIDE 1.25 MG/3 ML NEB (SCH) NEB ×4 (04:00→22:30)
[2017-10-24] MEDS: CHLORHEXIDINE GLUCONATE 2 % 1 PACK (2 CLOTHS) TOP SCH ×2 (04:00→20:12)
[2017-10-24] MEDS: PANTOPRAZOLE SODIUM 40 MG VIAL IV PUSH SCH ×2 (05:58→18:08)
[2017-10-24 07:53] LABS: AUTOMATED NEUTROPHIL # 8.5 TH/MM3 (1.8-7.7); BASOPHIL # 0.1 TH/MM3 (0-0.2); BASOPHIL % 0.5 % (0.0-2.0); EOSINOPHIL # 0.2 TH/MM3 (0-0.4); EOSINOPHIL % 1.8 % (0.0-4.0); HEMATOCRIT 23.3 % (39.0-51.0); HEMOGLOBIN 7.4 GM/DL (13.0-17.0); LYMPH % 10.1 % (9.0-44.0); LYMPHOCYTE # 1.1 TH/MM3 (1.0-4.8); MEAN CELL VOLUME 77.9 FL (80.0-100.0); MEAN CORPUSCULAR HEMOGLOBIN 24.8 PG (27.0-34.0); MEAN CORPUSCULAR HGB CONC 31.9 % (32.0-36.0); MEAN PLATELET VOLUME 7.2 FL (7.0-11.0); MONO % 12.1 % (0.0-8.0); MONOCYTE # 1.4 TH/MM3 (0-0.9); NEUT % 75.5 % (16.0-70.0); PLATELET COUNT 214 TH/MM3 (150-450); RED BLOOD COUNT 2.98 MIL/MM3 (4.50-5.90); RED CELL DISTRIBUTION WIDTH 25.7 % (11.6-17.2); WHITE BLOOD COUNT 11.3 TH/MM3 (4.0-11.0)
[2017-10-24 08:14] LABS: ALBUMIN 2.1 GM/DL (3.4-5.0); AST (GOT) 14 U/L (15-37); BICARBONATE 34.9 MEQ/L (21.0-32.0); BLOOD UREA NITROGEN 8 MG/DL (7-18); CALCIUM 7.5 MG/DL (8.5-10.1); CHLORIDE 99 MEQ/L (98-107); CREATININE 0.54 MG/DL (0.60-1.30); GLOMERULAR FILTRATION RATE 148 ML/MIN (>89); GLUCOSE,RANDOM 111 MG/DL (74-106); MAGNESIUM 1.9 MG/DL (1.5-2.5); SODIUM (NA) 140 MEQ/L (136-145)
[2017-10-24 08:22] LABS: ALKALINE PHOSPHATASE 55 U/L (45-117); ALT (GPT) 11 U/L (12-78); PHOSPHORUS 2.7 MG/DL (2.5-4.9); TOTAL BILIRUBIN ADULT 0.9 MG/DL (0.2-1.0); TOTAL PROTEIN 5.1 GM/DL (6.4-8.2)
[2017-10-24] MEDS: METOPROLOL TARTRATE 50 MG TAB PO SCH ×2 (08:25→20:11)
[2017-10-24] MEDS: FUROSEMIDE 40 MG TAB PO SCH (08:26)
[2017-10-24] MEDS: PRAVASTATIN SOD 20 MG TAB PO SCH (08:26)
[2017-10-24] MEDS: SODIUM CHLORIDE 0.9% FLUSH 10 ML FLUSH IV FLUSH SCH ×2 (08:26→20:11)
[2017-10-24] MEDS: DOCUSATE SODIUM 50 MG/SENNA 8.6 MG TAB PO SCH ×2 (08:26→20:10)
[2017-10-24 08:52] LABS: OVALOCYTES 1+ (NORMAL)
--- NOTE | 2017-10-24 11:51 | HHI.GIFU ---
Subjective Remarks Pt resting in bed. Says he's trying to have BM. No obvious bleeding. Some stool visualized -- was brown. (Tita Roldan) Objective Vitals I&O Vital Signs Date Time Temp Pulse Resp B/P (MAP) Pulse Ox O2 Delivery O2 Flow Rate FiO2 10/24/17 09:12 97 Nasal Cannula 3.00 10/24/17 06:00 99 10/24/17 04:00 95 23 126/77 (93) 76 10/24/17 04:00 95 10/24/17 02:00 92 10/24/17 00:00 98.5 96 31 132/61 (84) 93 10/24/17 00:00 96 10/23/17 22:00 107 10/23/17 21:16 95 Nasal Cannula 3.00 10/23/17 20:00 98.9 121 26 136/61 (86) 96 10/23/17 20:00 121 10/23/17 18:00 107 10/23/17 16:00 94 10/23/17 16:00 99.5 99 24 130/60 (83) 93 10/23/17 14:00 93 10/23/17 12:00 107 10/23/17 12:00 99.3 101 22 154/68 (96) 98 I/O 10/23/17 10/23/17 10/23/17 10/24/17 10/24/17 10/24/17 06:59 14:59 22:59 06:59 14:59 22:59 Intake Total 2602 ml 1130 ml Output Total 1375 ml 1100 ml 250 ml Balance 1227 ml 30 ml -250 ml Intake Oral 680 ml IV Total 2602 ml 450 ml Output Urine Total 1375 ml 1100 ml 250 ml # Bowel Movements 0 0 Laboratory Laboratory Tests Test 10/23/17 19:20 10/24/17 07:08 White Blood Count 12.9 11.3 Red Blood Count 3.06 2.98 Hemoglobin 7.6 7.4 Hematocrit 23.7 23.3 Mean Corpuscular Volume 77.6 77.9 Mean Corpuscular Hemoglobin 24.8 24.8 Mean Corpuscular Hemoglobin Concent 31.9 31.9 Red Cell Distribution Width 26.0 25.7 Platelet Count 225 214 Mean Platelet Volume 7.1 7.2 Neutrophils (%) (Auto) 66.0 75.5 Lymphocytes (%) (Auto) 19.0 10.1 Monocytes (%) (Auto) 11.9 12.1 Eosinophils (%) (Auto) 2.4 1.8 Basophils (%) (Auto) 0.7 0.5 Neutrophils # (Auto) 8.5 8.5 Lymphocytes # (Auto) 2.5 1.1 Monocytes # (Auto) 1.5 1.4 Eosinophils # (Auto) 0.3 0.2 Basophils # (Auto) 0.1 0.1 CBC Comment AUTO DIFF AUTO DIFF Differential Comment AUTO DIFF CONFIRMED AUTO DIFF CONFIRMED Ovalocytes 1+ 1+ Platelet Estimate NORMAL Platelet Morphology Comment NORMAL Blood Urea Nitrogen 8 Creatinine 0.54 Random Glucose 111 Total Protein 5.1 Albumin 2.1 Calcium Level 7.5 Phosphorus Level 2.7 Magnesium Level 1.9 Alkaline Phosphatase 55 Aspartate Amino Transf (AST/SGOT) 14 Alanine Aminotransferase (ALT/SGPT) 11 Total Bilirubin 0.9 Sodium Level 140 Potassium Level 3.4 Chloride Level 99 Carbon Dioxide Level 34.9 Anion Gap 6 Estimat Glomerular Filtration Rate 148 Physical Exam HEENT: PERRL; normocephalic; atraumatic; no jaundice. CHEST: CTA CARDIAC: RRR ABDOMEN: Soft, obese, nontender; no hepatosplenomegaly; bowel sounds are present in all four quadrants. EXTREMITIES: venous stasis changes BLE SKIN: Normal; no rash; no jaundice. EPIC TRAINER: No focal deficits; alert and oriented times three. (Tita Roldan [facility]) Assessment and Plan Assessment: (1) Obesity ICD Codes: E66.9 - Obesity, unspecified Status: Acute (2) Anemia ICD Codes: D64.9 - Anemia, unspecified Status: Acute (3) GI bleed ICD Codes: K92.2 - Gastrointestinal hemorrhage, unspecified Status: Acute Plan Symptomatic anemia 77-year-old obese male who started having dark melena stools 2 days before his admission and has continued through his admission day. He did note 1 nausea and vomiting episode with dark emesis but unknown if it was coffee-ground or not. Patient did note taking a combination of a Aleve and ibuprofen for insomnia but did not remember exactly how long he had been taking it. Patient's initial hemoglobin was 4.7 and was transfused with 5 units of packed RBCs now 7.1. Patient was prepped this past p.m. and early a.m. for colonoscopy and EGD 10/23/17 s/p EGD and colonoscopy with findings of irr z line, mult ulcers stomach , large duodenal ulcer, no bleeding diverticulosis, hemorrhoids. HH is stable. gastrin level pending. 10/24/17 no obvious bleeding. HH stable gastrin & bx still pending. Plan await bx await gastrin level soft diet BID ppi EGD 6 mos CBC am Patient was seen per myself and , note was written on his behalf (Tita Roldan) Plan Patient was seen and examined, agree with above note, no sign of active bleeding , hemoglobin stable, okay to transfer to the floor, monitor H&H with packed RBC as needed next, continue PPI (Lita Kaufman MD) Problem Qualifiers (1) Anemia: Qualified Codes: D62 - Acute posthemorrhagic anemia (2) GI bleed: Qualified Codes: K92.2 - Gastrointestinal hemorrhage, unspecified Tita Roldan Oct 24, 2017 11:51 Lita Kaufman MD Oct 24, 2017 14:49
[2017-10-24] MEDS ORDERED: cloNIDine HCL 0.1 MG TAB PO PRN (16:15)
[2017-10-24] MEDS: FINASTERIDE 5 MG TAB PO SCH (16:37)
--- NOTE | 2017-10-24 17:11 | HHI.PR ---
Subjective Remarks 10/21: 77-year-old gentleman with history of atrial fibrillation on Eliquis presents complaining of diarrhea of dark stool and weakness. The symptoms are started a couple days ago. He had 3 episodes today. He denies vomiting or abdominal pain or presyncopal symptoms. Symptom severity is moderate. No alleviating factors. He does not know if he is currently taking or recently take antibiotics. He denies prior diarrhea issues or colon problems. 10/22: No events over the night. Patient still had some melanotic stool, no hematemesis and no hematochezia. Patient feels okay, denies CP, shortness of breath, palpitations, abdominal pain. Afebrile with a T-max of 99.2. Urine output over the last 24 hours approximately 1400 mL. A total of 6 units PRBC and repeat hemoglobin has been ordered. 10/23: Patient did well over the night. T-max of 99.3. No additional melena. Patient underwent EGD and colonoscopy yesterday and he was found to have multiple ulcers in the stomach as well as large duodenal ulcer with no source of active bleeding was identified. Colonoscopy showed diverticulosis and hemorrhoids per GI report. Patient feels fine, denies any chest pain, dyspnea, palpitations, abdominal pain. No nausea and vomiting. Patient tolerating clear liquid diet. 10-24 TRANSFERRED TO OUR SERVICE TODAY ADVANCE DIET INCREASE ACTIVITY PT AND OT CONSULT DW RN AND PT AM LABS Objective Vitals Vital Signs Date Time Temp Pulse Resp B/P (MAP) Pulse Ox O2 Delivery O2 Flow Rate FiO2 10/24/17 16:00 99.6 99 18 167/75 (105) 95 10/24/17 14:31 103 47 128/69 (88) 10/24/17 14:00 103 26 140/86 (104) 72 10/24/17 13:30 108 45 128/79 (95) 79 10/24/17 13:00 112 35 117/67 (84) 88 10/24/17 12:31 97 38 133/60 (84) 85 10/24/17 12:00 98.6 100 26 127/77 (94) 81 10/24/17 11:30 105 30 131/59 (83) 77 10/24/17 11:00 96 48 123/59 (80) 88 10/24/17 10:31 113 41 129/89 (102) 83 10/24/17 10:00 95 38 123/59 (80) 94 10/24/17 09:30 96 26 114/55 (74) 94 10/24/17 09:12 97 Nasal Cannula 3.00 10/24/17 09:00 100 42 96/53 (67) 78 10/24/17 08:30 134 57 134/69 (90) 81 10/24/17 08:00 99.1 105 28 131/65 (87) 86 10/24/17 06:00 99 10/24/17 04:00 95 23 126/77 (93) 76 10/24/17 04:00 95 10/24/17 02:00 92 10/24/17 00:00 98.5 96 31 132/61 (84) 93 10/24/17 00:00 96 10/23/17 22:00 107 10/23/17 21:16 95 Nasal Cannula 3.00 10/23/17 20:00 98.9 121 26 136/61 (86) 96 10/23/17 20:00 121 10/23/17 18:00 107 I/O 10/23/17 10/23/17 10/23/17 10/24/17 10/24/17 10/24/17 07:00 15:00 23:00 07:00 15:00 23:00 Intake Total 2602 ml 1130 ml 640 ml Output Total 1375 ml 1100 ml 250 ml 650 ml Balance 1227 ml 30 ml -250 ml -10 ml Intake Oral 680 ml 640 ml IV Total 2602 ml 450 ml Output Urine Total 1375 ml 1100 ml 250 ml 650 ml # Bowel Movements 0 0 1 Result Diagram: 10/24/17 0708 10/24/17 0708 Other Results Laboratory Tests Test 10/21/17 20:45 10/22/17 00:53 10/22/17 13:17 10/22/17 20:31 Nasal Screen MRSA (PCR) MRSA NOT DETECTED Hemoglobin 7.1 GM/DL 7.9 GM/DL 8.0 GM/DL White Blood Count 12.8 TH/MM3 12.7 TH/MM3 Red Blood Count 3.16 MIL/MM3 3.32 MIL/MM3 Hematocrit 24.1 % 25.2 % Mean Corpuscular Volume 76.1 FL 75.8 FL Mean Corpuscular Hemoglobin 24.9 PG 24.2 PG Mean Corpuscular Hemoglobin Concent 32.7 % 31.9 % Red Cell Distribution Width 25.2 % 25.7 % Platelet Count 215 TH/MM3 226 TH/MM3 Mean Platelet Volume 7.0 FL 6.9 FL Neutrophils (%) (Auto) 75.1 % 74.3 % Lymphocytes (%) (Auto) 11.4 % 9.8 % Monocytes (%) (Auto) 11.5 % 12.6 % Eosinophils (%) (Auto) 1.3 % 2.3 % Basophils (%) (Auto) 0.7 % 1.0 % Neutrophils # (Auto) 9.6 TH/MM3 9.4 TH/MM3 Lymphocytes # (Auto) 1.5 TH/MM3 1.2 TH/MM3 Monocytes # (Auto) 1.5 TH/MM3 1.6 TH/MM3 Eosinophils # (Auto) 0.2 TH/MM3 0.3 TH/MM3 Basophils # (Auto) 0.1 TH/MM3 0.1 TH/MM3 CBC Comment AUTO DIFF AUTO DIFF Differential Comment AUTO DIFF CONFIRMED FINAL DIFF MANUAL Stomatocytes 1+ Prothrombin Time 12.0 SEC Prothromb Time International Ratio 1.2 RATIO Activated Partial Thromboplast Time 22.6 SEC Blood Urea Nitrogen 33 MG/DL Creatinine 0.73 MG/DL Random Glucose 99 MG/DL Total Protein 4.9 GM/DL Albumin 2.1 GM/DL Calcium Level 7.5 MG/DL Alkaline Phosphatase 56 U/L Aspartate Amino Transf (AST/SGOT) 13 U/L Alanine Aminotransferase (ALT/SGPT) 12 U/L Total Bilirubin 1.8 MG/DL Sodium Level 148 MEQ/L Potassium Level 4.0 MEQ/L Chloride Level 110 MEQ/L Carbon Dioxide Level 30.7 MEQ/L Anion Gap 7 MEQ/L Estimat Glomerular Filtration Rate 104 ML/MIN Phosphorus Level 2.6 MG/DL Magnesium Level 1.9 MG/DL Differential Total Cells Counted 100 Neutrophils % (Manual) 80 % Band Neutrophils % 2 % Lymphocytes % 5 % Monocytes % 10 % Neutrophils # (Manual) 10.8 TH/MM3 Metamyelocytes 1 % Myelocytes 2 % Toxic Granulation 3+ Platelet Estimate NORMAL Platelet Morphology Comment NORMAL Ovalocytes 1+ Acanthocytes OCC Test 10/23/17 04:15 10/23/17 19:20 10/24/17 07:08 White Blood Count 11.8 TH/MM3 12.9 TH/MM3 11.3 TH/MM3 Red Blood Count 3.14 MIL/MM3 3.06 MIL/MM3 2.98 MIL/MM3 Hemoglobin 7.8 GM/DL 7.6 GM/DL 7.4 GM/DL Hematocrit 24.1 % 23.7 % 23.3 % Mean Corpuscular Volume 76.7 FL 77.6 FL 77.9 FL Mean Corpuscular Hemoglobin 24.7 PG 24.8 PG 24.8 PG Mean Corpuscular Hemoglobin Concent 32.2 % 31.9 % 31.9 % Red Cell Distribution Width 25.6 % 26.0 % 25.7 % Platelet Count 214 TH/MM3 225 TH/MM3 214 TH/MM3 Mean Platelet Volume 6.6 FL 7.1 FL 7.2 FL Neutrophils (%) (Auto) 72.2 % 66.0 % 75.5 % Lymphocytes (%) (Auto) 12.2 % 19.0 % 10.1 % Monocytes (%) (Auto) 11.3 % 11.9 % 12.1 % Eosinophils (%) (Auto) 3.4 % 2.4 % 1.8 % Basophils (%) (Auto) 0.9 % 0.7 % 0.5 % Neutrophils # (Auto) 8.6 TH/MM3 8.5 TH/MM3 8.5 TH/MM3 Lymphocytes # (Auto) 1.4 TH/MM3 2.5 TH/MM3 1.1 TH/MM3 Monocytes # (Auto) 1.3 TH/MM3 1.5 TH/MM3 1.4 TH/MM3 Eosinophils # (Auto) 0.4 TH/MM3 0.3 TH/MM3 0.2 TH/MM3 Basophils # (Auto) 0.1 TH/MM3 0.1 TH/MM3 0.1 TH/MM3 CBC Comment AUTO DIFF AUTO DIFF AUTO DIFF Differential Comment AUTO DIFF CONFIRMED AUTO DIFF CONFIRMED AUTO DIFF CONFIRMED Prothrombin Time 12.0 SEC Prothromb Time International Ratio 1.2 RATIO Fibrinogen 282 mg/dL Blood Urea Nitrogen 18 MG/DL 8 MG/DL Creatinine 0.68 MG/DL 0.54 MG/DL Random Glucose 103 MG/DL 111 MG/DL Total Protein 5.1 GM/DL 5.1 GM/DL Albumin 2.2 GM/DL 2.1 GM/DL Calcium Level 7.6 MG/DL 7.5 MG/DL Phosphorus Level 2.9 MG/DL 2.7 MG/DL Magnesium Level 1.9 MG/DL 1.9 MG/DL Alkaline Phosphatase 56 U/L 55 U/L Aspartate Amino Transf (AST/SGOT) 13 U/L 14 U/L Alanine Aminotransferase (ALT/SGPT) 14 U/L 11 U/L Total Bilirubin 1.0 MG/DL 0.9 MG/DL Sodium Level 144 MEQ/L 140 MEQ/L Potassium Level 4.2 MEQ/L 3.4 MEQ/L Chloride Level 106 MEQ/L 99 MEQ/L Carbon Dioxide Level 33.0 MEQ/L 34.9 MEQ/L Anion Gap 5 MEQ/L 6 MEQ/L Estimat Glomerular Filtration Rate 113 ML/MIN 148 ML/MIN Ovalocytes 1+ 1+ Platelet Estimate NORMAL Platelet Morphology Comment NORMAL Objective Remarks GENERAL: Awake alert and oriented 3 talkative and cooperative SKIN: Warm and dry. HEAD: Atraumatic. Normocephalic. EYES: Pupils equal and round. No scleral icterus. No injection or drainage. Extraocular muscles intact ENT: No nasal bleeding or discharge. Mucous membranes pink and moist. Tongue is midline NECK: Trachea midline. No JVD. Supple CARDIOVASCULAR: IRRegular rate and rhythm. S1-S2 no S3 or S4 RESPIRATORY: No accessory muscle use. Clear to auscultation. Breath sounds equal bilaterally. GASTROINTESTINAL: Abdomen soft, non-tender, nondistended. Hepatic and splenic margins not palpable. Obese MUSCULOSKELETAL: Extremities without clubbing, cyanosis, or edema. No obvious deformities. NEUROLOGICAL: Awake and alert. No obvious cranial nerve deficits. Motor grossly within normal limits. 4 out of 5 muscle strength in the arms and legs. Normal speech. PSYCHIATRIC: Appropriate mood and affect; insight and judgment normal. Procedures s/p EGD and colonoscopy with findings of irr z line, mult ulcers stomach, large duodenal ulcer, no bleeding diverticulosis, hemorrhoids. Medications and IVs Current Medications Sodium Chloride 1,000 ml @ 1,000 mls/hr Q1H IV Last administered on 10/21/17at 17:09; Start 10/21/17 at 16:36; Stop 10/21/17 at 17:42; Status DC Sodium Chloride (NS Flush) 2 ml UNSCH PRN IV FLUSH FLUSH AFTER USING IV ACCESS ; Start 10/21/17 at 16:45; Stop 10/24/17 at 16:15; Status DC Sodium Chloride 250 ml @ 15 mls/hr ONCE ONCE IV ; Start 10/21/17 at 17:45; Stop 10/22/17 at 10:24; Status DC Polyethylene Glycol/ Electrolytes (Colyte Liq) 4,000 ml ONCE ONCE PO Last administered on 10/21/17at 22:14; Start 10/21/17 at 18:00; Stop 10/21/17 at 18:01 ; Status DC Phytonadione 10 mg/Sodium Chloride 51 ml @ 100 mls/hr ONCE ONCE IV Last administered on 10/21/17at 22:39; Start 10/21/17 at 22:00; Stop 10/21/17 at 22:30 ; Status DC Prothrombin Complex Concent (Human) 2500 units/Syringe / Bag 0 ml @ 500 mls/hr ONCE ONCE IV Last administered on 10/21/17at 22:15; Start 10/21/17 at 19:15; Stop 10/21/17 at 20:56; Status DC Tamsulosin HCl (Flomax) 0.4 mg HS PO Last administered on 10/23/17at 21:21; Start 10/21/17 at 21:00 Pravastatin Sodium (Pravachol) 20 mg DAILY PO Last administered on 10/24/17at 08 :26; Start 10/22/17 at 09:00 Sodium Chloride 1,000 ml @ 84 mls/hr [id number] IV Last administered on at 05:57; Start 10/21/17 at 18:52; Stop 10/23/17 at 10:36; Status DC Sodium Chloride (NS Flush) 2 ml UNSCH PRN IV FLUSH FLUSH AFTER USING IV ACCESS ; Start 10/21/17 at 19:00 Sodium Chloride (NS Flush) 2 ml BID IV FLUSH Last administered on 10/24/17at 08: 26; Start 10/21/17 at 21:00 Acetaminophen (Tylenol) 650 mg Q6H PRN PO PAIN 1-5 AND/OR FEVER >101F; Start at 19:00 Morphine Sulfate (Morphine Inj) 2 mg Q2H PRN IV PUSH PAIN SCALE 6 TO 10; Start 10/21/17 at 19:00 Pantoprazole Sodium (Protonix Inj) 40 mg Q12H IV PUSH Last administered on 10/24at 05:58; Start 10/21/17 at 19:00 Ondansetron HCl (Zofran Inj) 4 mg Q6H PRN IV PUSH NAUSEA OR VOMITING Last administered on 10/21/17at 22:49; Start 10/21/17 at 19:00 Albuterol/ Ipratropium (Duoneb Neb) 1 ampule Q2HR NEB PRN INH WHEEZING Last administered on 10/23/17at 17:14; Start 10/21/17 at 19:00 Miscellaneous Information ([facility] [facility] 1 [id number] XX ; Start at 19:00 Chlorhexidine Gluconate (Chlorhexidine 2% Cloth) 3 pack Taper DAILY@04 TOP Last administered on 10/22/17at 03:47; Start 10/22/17 at 04:00; Stop 10/18/18 at 03:59 Chlorhexidine Gluconate (Chlorhexidine 2% Cloth) 3 pack UNSCH PRN TOP HYGIENIC CARE; Start 10/21/17 at 19:00 Senna/Docusate Sodium (Iris-Colace) 1 tab BID PO Last administered on at 08:26; Start 10/21/17 at 21:00 Magnesium Hydroxide (Milk Of Magnesia Liq) 30 ml Q12H PRN PO Mild constipation ; Start 10/21/17 at 19:00 Sennosides (Senokot) 17.2 mg Q12H PRN PO Moderate constipation; Start 10/21/17 at 19:00 Bisacodyl (Dulcolax Supp) 10 mg DAILY PRN RECTAL SEVERE CONSITIPATION; Start at 19:00 Lactulose (Lactulose Liq) 30 ml DAILY PRN PO SEVERE CONSITIPATION; Start at 19:00 Digoxin (Lanoxin Inj) 0.25 mg ONCE ONCE IV PUSH Last administered on at 00:42; Start 10/22/17 at 00:00; Stop 10/22/17 at 00:01; Status DC Metoprolol Tartrate (Lopressor Inj) 5 mg Q6H PRN IV PUSH HR >100 Last administered on 10/23/17at 15:09; Start 10/22/17 at 02:00 Calcium Gluconate 1 gm/Dextrose 110 ml @ 110 mls/hr ONCE ONCE IV Last administered on 10/22/17at 13:00; Start 10/22/17 at 13:00; Stop 10/22/17 at 13:59 ; Status DC Phytonadione (Vitamin K Inj) 10 mg ONCE ONCE SQ Last administered on at 16:40; Start 10/22/17 at 14:00; Stop 10/22/17 at 14:01; Status DC Furosemide (Lasix Inj) 40 mg ONCE ONCE IV PUSH Last administered on 10/22/17at 16:40; Start 10/22/17 at 13:15; Stop 10/22/17 at 13:21; Status DC Midazolam HCl (Versed Inj) 2 mg STK-MED ONCE .ROUTE ; Start 10/22/17 at 15:29; Stop 10/22/17 at 15:30; Status DC Furosemide (Lasix) 40 mg DAILY PO Last administered on 10/24/17at 08:26; Start 10/23/17 at 10:45 Metoprolol Tartrate (Lopressor) 50 mg Q12HR PO Last administered on 10/24/17at 08:25; Start 10/23/17 at 21:00 Levalbuterol HCl (Xopenex Neb) 1.25 mg Q6HR NEB NEB Last administered on at 16:41; Start 10/23/17 at 22:00 Levalbuterol HCl (Xopenex Neb) 1.25 mg Q6HR NEB NEB ; Start 10/23/17 at 16:00; Stop 10/23/17 at 16:54; Status DC Propofol (Diprivan 200 Mg/20 ml Inj) 200 mg STK-MED ONCE IV ; Start 10/22/17 at 12:00; Stop 10/24/17 at 11:22; Status DC Lidocaine HCl (Xylocaine-Mpf 1% Inj) 5 ml STK-MED ONCE OTHER ; Start 10/22/17 at 12:00; Stop 10/24/17 at 11:22; Status DC Phenylephrine HCl (Neosynephrine/ NS 1000 Mcg/10ml Syr) 1,000 mcg STK-MED ONCE IV ; Start 10/22/17 at 12:00; Stop 10/24/17 at 11:22; Status DC Clonidine (Catapres) 0.1 mg Q4H PRN PO SBP>160, DBP>90 Last administered on at 16:37; Start 10/24/17 at 16:15 Amlodipine Besylate (Norvasc) 5 mg BID PO ; Start 10/24/17 at 21:00 Finasteride (Proscar) 5 mg DAILY PO Last administered on 10/24/17at 16:37; Start 10/24/17 at 16:15 A/P Assessment and Plan 1. Acute blood loss anemia -received a total of 6 units PRBC, hemoglobin stable so far 2. Acute GI bleed -post EGD and colonoscopy, found to have multiple ulcers in the stomach as well as duodenal ulcer but no active source of bleeding identified 3. Coagulopathy due to home Eliquis -received K central and vitamin K 4. A. fib -rate reasonably controlled, required 1 dose of digoxin 5. Mild TEVIN -resolved 6. Hyperkalemia -resolved 7. History of hypertension 8. History of hyperlipidemia 9. dCHF 1. Continue PPI IV twice daily 2. Monitor hemoglobin tonight 3. Received vitamin K 2 4. Gradually restart home metoprolol and Cardizem when BP allows 5. Advance diet if okay with GI 6. GI prophylaxis addressed above, mechanical DVT prophylaxis with SCDs. Hold pharmacological DVT prophylaxis in the setting of acute GI bleed Physical therapy and Occupational Therapy consult A.m. labs Increase active Discharge Planning Increase activity May need SNF at discharge Tab Simmons DO Oct 24, 2017 17:11
[2017-10-24] MEDS: TAMSULOSIN HCL 0.4 MG CAP PO SCH (20:11)
[2017-10-24] MEDS: amLODIPine BESYLATE 5 MG TAB PO SCH (20:11)
[2017-10-25] VITALS (17 sets, daily range): BP systolic 129–164; BP diastolic 62–83; PULSE 93–140; RESP 19–43; TEMP 96–99; O2SAT 92–99
[2017-10-25] MEDS ORDERED: FUROSEMIDE 20 MG/2 ML VIAL IV PUSH ONE (02:15)
[2017-10-25] MEDS ORDERED: POTASSIUM CHLORIDE 20 MEQ CONTROLLED RELEASE TAB PO ONE ×2 (02:15→09:30)
[2017-10-25] MEDS: RESP: LEVALBUTEROL HYDROCHLORIDE 1.25 MG/3 ML NEB (SCH) NEB ×3 (03:14→18:20)
--- NOTE | 2017-10-25 04:07 | RADRPT ---
EXAM DATE/TIME: 10/25/2017 03:50 [facility] COMPARISON: CHEST SINGLE AP, July 05, 2016, 16:52. INDICATIONS : Short of breath. MEDICAL HISTORY : Atrial fibrillation. SURGICAL HISTORY : None. ENCOUNTER: Initial ACUITY: 1 day PAIN SCORE: Non-responsive. LOCATION: Bilateral chest FINDINGS: A single view of the chest demonstrates cardiomegaly with bibasilar atelectatic changes. Left costoph renic angle is not included on this exam therefore, small left-sided effusion cannot be excluded. Oss eous structures are intact. CONCLUSION: 1. Compensated cardiomegaly. 2. Bibasilar atelectatic changes Mayco Bustos MD on October 25, 2017 at 4:04 Board Certified Radiologist. This report was verified electronically.
[2017-10-25] MEDS: PANTOPRAZOLE SODIUM 40 MG VIAL IV PUSH SCH ×2 (06:00→18:31)
[2017-10-25 06:21] LABS: AUTOMATED NEUTROPHIL # 6.5 TH/MM3 (1.8-7.7); BASOPHIL % 0.5 % (0.0-2.0); EOSINOPHIL # 0.3 TH/MM3 (0-0.4); EOSINOPHIL % 2.9 % (0.0-4.0); HEMATOCRIT 22.6 % (39.0-51.0); HEMOGLOBIN 7.4 GM/DL (13.0-17.0); LYMPH % 11.1 % (9.0-44.0); MEAN CELL VOLUME 77.2 FL (80.0-100.0); MEAN CORPUSCULAR HEMOGLOBIN 25.3 PG (27.0-34.0); MEAN CORPUSCULAR HGB CONC 32.8 % (32.0-36.0); MEAN PLATELET VOLUME 6.9 FL (7.0-11.0); MONO % 13.8 % (0.0-8.0); MONOCYTE # 1.3 TH/MM3 (0-0.9); NEUT % 71.7 % (16.0-70.0); PLATELET COUNT 206 TH/MM3 (150-450); RED BLOOD COUNT 2.93 MIL/MM3 (4.50-5.90); RED CELL DISTRIBUTION WIDTH 26.5 % (11.6-17.2); WHITE BLOOD COUNT 9.1 TH/MM3 (4.0-11.0)
[2017-10-25 06:41] LABS: ALBUMIN 2.3 GM/DL (3.4-5.0); ALT (GPT) 13 U/L (12-78); BICARBONATE 38.6 MEQ/L (21.0-32.0); BLOOD UREA NITROGEN 8 MG/DL (7-18); CALCIUM 7.8 MG/DL (8.5-10.1); CHLORIDE 97 MEQ/L (98-107); CREATININE 0.61 MG/DL (0.60-1.30); GLOMERULAR FILTRATION RATE 129 ML/MIN (>89); GLUCOSE,RANDOM 112 MG/DL (74-106); MAGNESIUM 1.9 MG/DL (1.5-2.5); PHOSPHORUS 2.4 MG/DL (2.5-4.9); SODIUM (NA) 140 MEQ/L (136-145)
[2017-10-25 06:52] LABS: FREE T4 1.11 NG/DL (0.76-1.46)
[2017-10-25 06:58] LABS: ALKALINE PHOSPHATASE 58 U/L (45-117); AST (GOT) 16 U/L (15-37); TOTAL BILIRUBIN ADULT 0.9 MG/DL (0.2-1.0); TOTAL PROTEIN 5.6 GM/DL (6.4-8.2)
[2017-10-25] MEDS: DOCUSATE SODIUM 50 MG/SENNA 8.6 MG TAB PO SCH ×2 (08:46→21:00)
[2017-10-25] MEDS: FUROSEMIDE 40 MG TAB PO SCH (08:46)
[2017-10-25] MEDS: FINASTERIDE 5 MG TAB PO SCH (08:46)
[2017-10-25] MEDS: PRAVASTATIN SOD 20 MG TAB PO SCH (08:46)
[2017-10-25] MEDS: amLODIPine BESYLATE 5 MG TAB PO SCH ×2 (08:46→21:05)
[2017-10-25] MEDS: METOPROLOL TARTRATE 50 MG TAB PO SCH ×2 (08:47→21:04)
[2017-10-25] MEDS: SODIUM CHLORIDE 0.9% FLUSH 10 ML FLUSH IV FLUSH SCH ×2 (08:47→21:04)
--- NOTE | 2017-10-25 09:24 | HHI.PR ---
Subjective Remarks 10/21: 77-year-old gentleman with history of atrial fibrillation on Eliquis presents complaining of diarrhea of dark stool and weakness. The symptoms are started a couple days ago. He had 3 episodes today. He denies vomiting or abdominal pain or presyncopal symptoms. Symptom severity is moderate. No alleviating factors. He does not know if he is currently taking or recently take antibiotics. He denies prior diarrhea issues or colon problems. 10/22: No events over the night. Patient still had some melanotic stool, no hematemesis and no hematochezia. Patient feels okay, denies CP, shortness of breath, palpitations, abdominal pain. Afebrile with a T-max of 99.2. Urine output over the last 24 hours approximately 1400 mL. A total of 6 units PRBC and repeat hemoglobin has been ordered. 10/23: Patient did well over the night. T-max of 99.3. No additional melena. Patient underwent EGD and colonoscopy yesterday and he was found to have multiple ulcers in the stomach as well as large duodenal ulcer with no source of active bleeding was identified. Colonoscopy showed diverticulosis and hemorrhoids per GI report. Patient feels fine, denies any chest pain, dyspnea, palpitations, abdominal pain. No nausea and vomiting. Patient tolerating clear liquid diet. 10-24 TRANSFERRED TO OUR SERVICE TODAY ADVANCE DIET INCREASE ACTIVITY PT AND OT CONSULT DW RN AND PT AM LABS - patient had increasing shortness of breath last night was placed on BiPAP was given Lasix With 2 L diuresed Nursing does not feel safe for him to be on this floor with BiPAP we will transfer him will get a.m. labs We will continue to diurese Continue physical therapy and Occupational Therapy Objective Vitals Vital Signs Date Time Temp Pulse Resp B/P (MAP) Pulse Ox O2 Delivery O2 Flow Rate FiO2 10/25/17 07:53 96.0 111 33 134/83 (100) 96 10/25/17 06:11 25 10/25/17 04:45 94 35 10/25/17 04:00 98.6 101 32 164/74 (104) 96 10/25/17 03:24 30 10/25/17 02:35 96 10/25/17 00:01 98.6 99 19 156/74 (101) 93 10/24/17 22:31 97 Nasal Cannula 3.00 10/24/17 20:00 99.2 94 18 135/55 (81) 97 10/24/17 16:00 99.6 99 18 167/75 (105) 95 10/24/17 14:31 103 47 128/69 (88) 10/24/17 14:00 103 26 140/86 (104) 72 10/24/17 13:30 108 45 128/79 (95) 79 10/24/17 13:00 112 35 117/67 (84) 88 10/24/17 12:31 97 38 133/60 (84) 85 10/24/17 12:00 98.6 100 26 127/77 (94) 81 10/24/17 11:30 105 30 131/59 (83) 77 10/24/17 11:00 96 48 123/59 (80) 88 10/24/17 10:31 113 41 129/89 (102) 83 10/24/17 10:00 95 38 123/59 (80) 94 10/24/17 09:30 96 26 114/55 (74) 94 I/O 10/24/17 10/24/17 10/24/17 10/25/17 10/25/17 10/25/17 07:00 15:00 23:00 07:00 15:00 23:00 Intake Total 640 ml 500 ml Output Total 250 ml 650 ml 1475 ml Balance -250 ml -10 ml -975 ml Intake Oral 640 ml 500 ml Output Urine Total 250 ml 650 ml 1475 ml # Voids 1 # Bowel Movements 1 1 0 Result Diagram: 10/25/17 0550 10/25/17 0550 Other Results Laboratory Tests Test 10/22/17 13:17 10/22/17 20:31 10/23/17 04:15 10/23/17 19:20 White Blood Count 12.8 TH/MM3 12.7 TH/MM3 11.8 TH/MM3 12.9 TH/MM3 Red Blood Count 3.16 MIL/MM3 3.32 MIL/MM3 3.14 MIL/MM3 3.06 MIL/MM3 Hemoglobin 7.9 GM/DL 8.0 GM/DL 7.8 GM/DL 7.6 GM/DL Hematocrit 24.1 % 25.2 % 24.1 % 23.7 % Mean Corpuscular Volume 76.1 FL 75.8 FL 76.7 FL 77.6 FL Mean Corpuscular Hemoglobin 24.9 PG 24.2 PG 24.7 PG 24.8 PG Mean Corpuscular Hemoglobin Concent 32.7 % 31.9 % 32.2 % 31.9 % Red Cell Distribution Width 25.2 % 25.7 % 25.6 % 26.0 % Platelet Count 215 TH/MM3 226 TH/MM3 214 TH/MM3 225 TH/MM3 Mean Platelet Volume 7.0 FL 6.9 FL 6.6 FL 7.1 FL Neutrophils (%) (Auto) 75.1 % 74.3 % 72.2 % 66.0 % Lymphocytes (%) (Auto) 11.4 % 9.8 % 12.2 % 19.0 % Monocytes (%) (Auto) 11.5 % 12.6 % 11.3 % 11.9 % Eosinophils (%) (Auto) 1.3 % 2.3 % 3.4 % 2.4 % Basophils (%) (Auto) 0.7 % 1.0 % 0.9 % 0.7 % Neutrophils # (Auto) 9.6 TH/MM3 9.4 TH/MM3 8.6 TH/MM3 8.5 TH/MM3 Lymphocytes # (Auto) 1.5 TH/MM3 1.2 TH/MM3 1.4 TH/MM3 2.5 TH/MM3 Monocytes # (Auto) 1.5 TH/MM3 1.6 TH/MM3 1.3 TH/MM3 1.5 TH/MM3 Eosinophils # (Auto) 0.2 TH/MM3 0.3 TH/MM3 0.4 TH/MM3 0.3 TH/MM3 Basophils # (Auto) 0.1 TH/MM3 0.1 TH/MM3 0.1 TH/MM3 0.1 TH/MM3 CBC Comment AUTO DIFF AUTO DIFF AUTO DIFF AUTO DIFF Differential Comment AUTO DIFF CONFIRMED FINAL DIFF MANUAL AUTO DIFF CONFIRMED AUTO DIFF CONFIRMED Stomatocytes 1+ Prothrombin Time 12.0 SEC 12.0 SEC Prothromb Time International Ratio 1.2 RATIO 1.2 RATIO Activated Partial Thromboplast Time 22.6 SEC Blood Urea Nitrogen 33 MG/DL 18 MG/DL Creatinine 0.73 MG/DL 0.68 MG/DL Random Glucose 99 MG/DL 103 MG/DL Total Protein 4.9 GM/DL 5.1 GM/DL Albumin 2.1 GM/DL 2.2 GM/DL Calcium Level 7.5 MG/DL 7.6 MG/DL Alkaline Phosphatase 56 U/L 56 U/L Aspartate Amino Transf (AST/SGOT) 13 U/L 13 U/L Alanine Aminotransferase (ALT/SGPT) 12 U/L 14 U/L Total Bilirubin 1.8 MG/DL 1.0 MG/DL Sodium Level 148 MEQ/L 144 MEQ/L Potassium Level 4.0 MEQ/L 4.2 MEQ/L Chloride Level 110 MEQ/L 106 MEQ/L Carbon Dioxide Level 30.7 MEQ/L 33.0 MEQ/L Anion Gap 7 MEQ/L 5 MEQ/L Estimat Glomerular Filtration Rate 104 ML/MIN 113 ML/MIN Phosphorus Level 2.6 MG/DL 2.9 MG/DL Magnesium Level 1.9 MG/DL 1.9 MG/DL Differential Total Cells Counted 100 Neutrophils % (Manual) 80 % Band Neutrophils % 2 % Lymphocytes % 5 % Monocytes % 10 % Neutrophils # (Manual) 10.8 TH/MM3 Metamyelocytes 1 % Myelocytes 2 % Toxic Granulation 3+ Platelet Estimate NORMAL Platelet Morphology Comment NORMAL Ovalocytes 1+ 1+ Acanthocytes OCC Fibrinogen 282 mg/dL Test 10/24/17 07:08 10/25/17 05:50 White Blood Count 11.3 TH/MM3 9.1 TH/MM3 Red Blood Count 2.98 MIL/MM3 2.93 MIL/MM3 Hemoglobin 7.4 GM/DL 7.4 GM/DL Hematocrit 23.3 % 22.6 % Mean Corpuscular Volume 77.9 FL 77.2 FL Mean Corpuscular Hemoglobin 24.8 PG 25.3 PG Mean Corpuscular Hemoglobin Concent 31.9 % 32.8 % Red Cell Distribution Width 25.7 % 26.5 % Platelet Count 214 TH/MM3 206 TH/MM3 Mean Platelet Volume 7.2 FL 6.9 FL Neutrophils (%) (Auto) 75.5 % 71.7 % Lymphocytes (%) (Auto) 10.1 % 11.1 % Monocytes (%) (Auto) 12.1 % 13.8 % Eosinophils (%) (Auto) 1.8 % 2.9 % Basophils (%) (Auto) 0.5 % 0.5 % Neutrophils # (Auto) 8.5 TH/MM3 6.5 TH/MM3 Lymphocytes # (Auto) 1.1 TH/MM3 1.0 TH/MM3 Monocytes # (Auto) 1.4 TH/MM3 1.3 TH/MM3 Eosinophils # (Auto) 0.2 TH/MM3 0.3 TH/MM3 Basophils # (Auto) 0.1 TH/MM3 0.0 TH/MM3 CBC Comment AUTO DIFF AUTO DIFF Differential Comment AUTO DIFF CONFIRMED Platelet Estimate NORMAL Platelet Morphology Comment NORMAL Ovalocytes 1+ Blood Urea Nitrogen 8 MG/DL 8 MG/DL Creatinine 0.54 MG/DL 0.61 MG/DL Random Glucose 111 MG/DL 112 MG/DL Total Protein 5.1 GM/DL 5.6 GM/DL Albumin 2.1 GM/DL 2.3 GM/DL Calcium Level 7.5 MG/DL 7.8 MG/DL Phosphorus Level 2.7 MG/DL 2.4 MG/DL Magnesium Level 1.9 MG/DL 1.9 MG/DL Alkaline Phosphatase 55 U/L 58 U/L Aspartate Amino Transf (AST/SGOT) 14 U/L 16 U/L Alanine Aminotransferase (ALT/SGPT) 11 U/L 13 U/L Total Bilirubin 0.9 MG/DL 0.9 MG/DL Sodium Level 140 MEQ/L 140 MEQ/L Potassium Level 3.4 MEQ/L 3.4 MEQ/L Chloride Level 99 MEQ/L 97 MEQ/L Carbon Dioxide Level 34.9 MEQ/L 38.6 MEQ/L Anion Gap 6 MEQ/L 4 MEQ/L Estimat Glomerular Filtration Rate 148 ML/MIN 129 ML/MIN Free Thyroxine 1.11 NG/DL Thyroid Stimulating Hormone 3rd Gen 1.300 uIU/ML Imaging Last Impressions Chest X-Ray 10/25/17 0000 Signed Impressions: Service Date/Time: Wednesday, October 25, 2017 03:50 - CONCLUSION: 1. Compensated cardiomegaly. 2. Bibasilar atelectatic changes Mayco Bustos MD Objective Remarks GENERAL: Awake alert and oriented 3 talkative and cooperative SKIN: Warm and dry. HEAD: Atraumatic. Normocephalic. EYES: Pupils equal and round. No scleral icterus. No injection or drainage. Extraocular muscles intact ENT: No nasal bleeding or discharge. Mucous membranes pink and moist. Tongue is midline NECK: Trachea midline. No JVD. Supple CARDIOVASCULAR: IRRegular rate and rhythm. S1-S2 no S3 or S4 RESPIRATORY: No accessory muscle use. Some rhonchi use and some wheezes bilaterally GASTROINTESTINAL: Abdomen soft, non-tender, nondistended. Hepatic and splenic margins not palpable. Obese MUSCULOSKELETAL: Extremities without clubbing, cyanosis, +2-3 bilateral lower extremity brawny edema no obvious deformities. NEUROLOGICAL: Awake and alert. No obvious cranial nerve deficits. Motor grossly within normal limits. 4 out of 5 muscle strength in the arms and legs. Normal speech. PSYCHIATRIC: Appropriate mood and affect; insight and judgment normal. Procedures s/p EGD and colonoscopy with findings of irr z line, mult ulcers stomach, large duodenal ulcer, no bleeding diverticulosis, hemorrhoids. Medications and IVs Current Medications Sodium Chloride 1,000 ml @ 1,000 mls/hr Q1H IV Last administered on 10/21/17at 17:09; Start 10/21/17 at 16:36; Stop 10/21/17 at 17:42; Status DC Sodium Chloride (NS Flush) 2 ml UNSCH PRN IV FLUSH FLUSH AFTER USING IV ACCESS ; Start 10/21/17 at 16:45; Stop 10/24/17 at 16:15; Status DC Sodium Chloride 250 ml @ 15 mls/hr ONCE ONCE IV ; Start 10/21/17 at 17:45; Stop 10/22/17 at 10:24; Status DC Polyethylene Glycol/ Electrolytes (Colyte Liq) 4,000 ml ONCE ONCE PO Last administered on 10/21/17at 22:14; Start 10/21/17 at 18:00; Stop 10/21/17 at 18:01 ; Status DC Phytonadione 10 mg/Sodium Chloride 51 ml @ 100 mls/hr ONCE ONCE IV Last administered on 10/21/17at 22:39; Start 10/21/17 at 22:00; Stop 10/21/17 at 22:30 ; Status DC Prothrombin Complex Concent (Human) 2500 units/Syringe / Bag 0 ml @ 500 mls/hr ONCE ONCE IV Last administered on 10/21/17at 22:15; Start 10/21/17 at 19:15; Stop 10/21/17 at 20:56; Status DC Tamsulosin HCl (Flomax) 0.4 mg HS PO Last administered on 10/24/17at 20:11; Start 10/21/17 at 21:00 Pravastatin Sodium (Pravachol) 20 mg DAILY PO Last administered on 10/25/17at 08: 46; Start 10/22/17 at 09:00 Sodium Chloride 1,000 ml @ 84 mls/hr [id number] IV Last administered on at 05:57; Start 10/21/17 at 18:52; Stop 10/23/17 at 10:36; Status DC Sodium Chloride (NS Flush) 2 ml UNSCH PRN IV FLUSH FLUSH AFTER USING IV ACCESS ; Start 10/21/17 at 19:00 Sodium Chloride (NS Flush) 2 ml BID IV FLUSH Last administered on 10/25/17at 08: 47; Start 10/21/17 at 21:00 Acetaminophen (Tylenol) 650 mg Q6H PRN PO PAIN 1-5 AND/OR FEVER >101F; Start at 19:00 Morphine Sulfate (Morphine Inj) 2 mg Q2H PRN IV PUSH PAIN SCALE 6 TO 10; Start 10/21/17 at 19:00 Pantoprazole Sodium (Protonix Inj) 40 mg Q12H IV PUSH Last administered on at 06:00; Start 10/21/17 at 19:00 Ondansetron HCl (Zofran Inj) 4 mg Q6H PRN IV PUSH NAUSEA OR VOMITING Last administered on 10/21/17at 22:49; Start 10/21/17 at 19:00 Albuterol/ Ipratropium (Duoneb Neb) 1 ampule Q2HR NEB PRN INH WHEEZING Last administered on 10/23/17at 17:14; Start 10/21/17 at 19:00 Miscellaneous Information ([facility] Nursing Information) 1 [id number] XX ; Start at 19:00 Chlorhexidine Gluconate (Chlorhexidine 2% Cloth) 3 pack Taper DAILY@04 TOP Last administered on 10/22/17at 03:47; Start 10/22/17 at 04:00; Stop 10/18/18 at 03:59 Chlorhexidine Gluconate (Chlorhexidine 2% Cloth) 3 pack UNSCH PRN TOP HYGIENIC CARE; Start 10/21/17 at 19:00 Senna/Docusate Sodium (Iris-Colace) 1 tab BID PO Last administered on 10/25/17at 08:46; Start 10/21/17 at 21:00 Magnesium Hydroxide (Milk Of Magnesia Liq) 30 ml Q12H PRN PO Mild constipation ; Start 10/21/17 at 19:00 Sennosides (Senokot) 17.2 mg Q12H PRN PO Moderate constipation; Start 10/21/17 at 19:00 Bisacodyl (Dulcolax Supp) 10 mg DAILY PRN RECTAL SEVERE CONSITIPATION; Start at 19:00 Lactulose (Lactulose Liq) 30 ml DAILY PRN PO SEVERE CONSITIPATION; Start at 19:00 Digoxin (Lanoxin Inj) 0.25 mg ONCE ONCE IV PUSH Last administered on at 00:42; Start 10/22/17 at 00:00; Stop 10/22/17 at 00:01; Status DC Metoprolol Tartrate (Lopressor Inj) 5 mg Q6H PRN IV PUSH HR >100 Last administered on 10/23/17at 15:09; Start 10/22/17 at 02:00 Calcium Gluconate 1 gm/Dextrose 110 ml @ 110 mls/hr ONCE ONCE IV Last administered on 10/22/17at 13:00; Start 10/22/17 at 13:00; Stop 10/22/17 at 13:59 ; Status DC Phytonadione (Vitamin K Inj) 10 mg ONCE ONCE SQ Last administered on at 16:40; Start 10/22/17 at 14:00; Stop 10/22/17 at 14:01; Status DC Furosemide (Lasix Inj) 40 mg ONCE ONCE IV PUSH Last administered on 10/22/17at 16:40; Start 10/22/17 at 13:15; Stop 10/22/17 at 13:21; Status DC Midazolam HCl (Versed Inj) 2 mg STK-MED ONCE .ROUTE ; Start 10/22/17 at 15:29; Stop 10/22/17 at 15:30; Status DC Furosemide (Lasix) 40 mg DAILY PO Last administered on 10/25/17 08:46; Start at 10:45 Metoprolol Tartrate (Lopressor) 50 mg Q12HR PO Last administered on 10/25/17at 08 :47; Start 10/23/17 at 21:00 Levalbuterol HCl (Xopenex Neb) 1.25 mg Q6HR NEB NEB Last administered on at 22:30; Start 10/23/17 at 22:00 Levalbuterol HCl (Xopenex Neb) 1.25 mg Q6HR NEB NEB ; Start 10/23/17 at 16:00; Stop 10/23/17 at 16:54; Status DC Propofol (Diprivan 200 Mg/20 ml Inj) 200 mg STK-MED ONCE IV ; Start 10/22/17 at 12:00; Stop 10/24/17 at 11:22; Status DC Lidocaine HCl (Xylocaine-Mpf 1% Inj) 5 ml STK-MED ONCE OTHER ; Start 10/22/17 at 12:00; Stop 10/24/17 at 11:22; Status DC Phenylephrine HCl (Neosynephrine/ NS 1000 Mcg/10ml Syr) 1,000 mcg STK-MED ONCE IV ; Start 10/22/17 at 12:00; Stop 10/24/17 at 11:22; Status DC Clonidine (Catapres) 0.1 mg Q4H PRN PO SBP>160, DBP>90 Last administered on at 16:37; Start 10/24/17 at 16:15 Amlodipine Besylate (Norvasc) 5 mg BID PO Last administered on 10/25/17at 08:46; Start 10/24/17 at 21:00 Finasteride (Proscar) 5 mg DAILY PO Last administered on 10/25/17at 08:46; Start 10/24/17 at 16:15 Furosemide (Lasix Inj) 20 mg ONCE ONCE IV PUSH Last administered on 10/25/17at 03:23; Start 10/25/17 at 02:15; Stop 10/25/17 at 02:16; Status DC Potassium Chloride (KCl) 20 meq ONCE ONCE PO Last administered on 10/25/17at 03: 24; Start 10/25/17 at 02:15; Stop 10/25/17 at 02:16; Status DC A/P Assessment and Plan 1. Acute blood loss anemia -received a total of 6 units PRBC, hemoglobin stable so far 2. Acute GI bleed -post EGD and colonoscopy, found to have multiple ulcers in the stomach as well as duodenal ulcer but no active source of bleeding identified 3. Coagulopathy due to home Eliquis -received K central and vitamin K 4. A. fib -rate reasonably controlled, required 1 dose of digoxin 5. Mild TEVIN -resolved 6. Hyperkalemia -resolved 7. History of hypertension 8. History of hyperlipidemia 9. dCHF CHF-DUE TO FLUID OVERLOAD- WILL DIURESE DYSPNEA- WAS ON BIPAP- TRANSFER OFF THIS FLOOR HYPOKALEMIA WILL REPLACE- DUE TO DIURESIS HYPOXIA CONSULT PULMONARY 1. Continue PPI IV twice daily 2. Monitor hemoglobin tonight 3. Received vitamin K 2 4. Gradually restart home metoprolol and Cardizem when BP allows 5. Advance diet if okay with GI 6. GI prophylaxis addressed above, mechanical DVT prophylaxis with SCDs. Hold pharmacological DVT prophylaxis in the setting of acute GI bleed Physical therapy and Occupational Therapy consult A.m. labs Increase active DIURESE AM LABS TRANSFER TO ICU Discharge Planning Increase activity May need SNF at discharge Tab Simmons DO October 25, 2017 09:24
[2017-10-25 09:57] LABS: POLYCHROMASIA 2.2 % (0.0-1.9)
[2017-10-25 09:59] LABS: OVALOCYTES 1+ (NORMAL)
[2017-10-25] MEDS: guaiFENesin E.R. 600 MG TAB PO SCH ×2 (12:43→21:05)
[2017-10-25 16:34] LABS: HEMOGLOBIN A1C 5.3 % (4.3-6.0)
--- NOTE | 2017-10-25 16:48 | MB ---
cc: Doc Roach MD DATE: 10/25/2017 REASON FOR CONSULTATION: 1. Evidence of atelectatic change on chest x-ray. 2. Obesity. 3. Question sleep disorder breathing. HISTORY OF PRESENT ILLNESS: The patient is a 77-year-old male with chronic atrial fibrillation, on anticoagulant therapy, admitted with melena. GI evaluation is in progress. The patient's oxygenation is adequate on 2 liters nasal cannula. Chest x-ray with atelectatic changes at the bases. The patient is morbidly obese. He does snore intermittently. No fever, no chills. Occasional cough, small amount of whitish sputum. PAST MEDICAL HISTORY: Atrial fibrillation, hypertension, hyperlipidemia, congestive heart failure, obesity. PAST SURGICAL HISTORY: Cataract surgery, inguinal hernia repair, TURP, a T and A as a child. MEDICATIONS AT HOME: 1. Lopressor. 2. Lasix. 3. Diltiazem. 4. Eliquis. 5. Simvastatin. 6. Tamsulosin. 7. Finasteride. ALLERGIES: NONE KNOWN TO MEDICATION. FAMILY HISTORY: Noncontributory. SOCIAL HISTORY: , lives with . He does not smoke. Drinks alcohol socially, does not use drugs. REVIEW OF SYSTEMS: A 12-point review of systems as per HPI and past history otherwise negative. PHYSICAL EXAMINATION: VITAL SIGNS: Temperature 98, pulse 80, respiration 18, blood pressure 112/60, oxygen saturation 96% on 2 liters oxygen nasal cannula. HEENT: Unremarkable. Eyes without icterus. NECK: Without adenopathy, thyroid enlargement. Central trachea. CHEST: Few rhonchi at bases, decreased with cough. CARDIAC: PMI distant. Irregularity noted. ABDOMEN: Lax, bowel sounds audible. EXTREMITIES: 2+ edema, chronic venous stasis changes noted. LABORATORY DATA: White count 9000, hemoglobin 7, hematocrit 22, platelets 206,000. Sodium 140, potassium 3.4, BUN 8, creatinine 0.6. INR 1.2. Chest x-ray with cardiomegaly, bibasilar atelectatic change. IMPRESSION: 1. Sleep disordered breathing, obstructive sleep apnea suspect. 2. Morbid obesity. 3. Acute gastrointestinal bleed. 4. Anemia due to above. 5. Hypertension. 6. Hyperlipidemia. 7. Atrial fibrillation. PLAN: The patient will be maintained on oxygen therapy as needed. We will check his thyroid function. Pulmonary toilet will be undertaken. Nebulized albuterol would be appropriate. Post-discharge polysomnographic evaluation would be appropriate for possible underlying obstructive sleep apnea. I do thank you for asking me to partake in Mr. Wells's care. Doc Roach MD WWW/ALAN , 04:24 PM , 04:48 PM
[2017-10-25] MEDS: FUROSEMIDE 40 MG/4 ML VIAL IV PUSH SCH (18:31)
[2017-10-25] MEDS: TAMSULOSIN HCL 0.4 MG CAP PO SCH (21:04)
[2017-10-26] VITALS (19 sets, daily range): BP systolic 111–154; BP diastolic 55–76; PULSE 90–116; RESP 17–24; TEMP 97.7–99.6; O2SAT 91–98
[2017-10-26] MEDS: RESP: LEVALBUTEROL HYDROCHLORIDE 1.25 MG/3 ML NEB (SCH) NEB ×4 (03:22→21:49)
[2017-10-26 04:05] LABS: AUTOMATED NEUTROPHIL # 6.2 TH/MM3 (1.8-7.7); BASOPHIL # 0.1 TH/MM3 (0-0.2); EOSINOPHIL # 0.4 TH/MM3 (0-0.4); HEMATOCRIT 23.4 % (39.0-51.0); HEMOGLOBIN 7.5 GM/DL (13.0-17.0); LYMPH % 15.5 % (9.0-44.0); LYMPHOCYTE # 1.4 TH/MM3 (1.0-4.8); MEAN CELL VOLUME 77.4 FL (80.0-100.0); MEAN CORPUSCULAR HEMOGLOBIN 24.8 PG (27.0-34.0); MEAN PLATELET VOLUME 6.9 FL (7.0-11.0); MONO % 12.1 % (0.0-8.0); MONOCYTE # 1.1 TH/MM3 (0-0.9); NEUT % 67.4 % (16.0-70.0); PLATELET COUNT 217 TH/MM3 (150-450); RED BLOOD COUNT 3.02 MIL/MM3 (4.50-5.90); RED CELL DISTRIBUTION WIDTH 26.5 % (11.6-17.2); WHITE BLOOD COUNT 9.2 TH/MM3 (4.0-11.0)
[2017-10-26 04:27] LABS: ALBUMIN 2.3 GM/DL (3.4-5.0); ALT (GPT) 13 U/L (12-78); AST (GOT) 15 U/L (15-37); BICARBONATE 38.9 MEQ/L (21.0-32.0); BLOOD UREA NITROGEN 7 MG/DL (7-18); CALCIUM 7.8 MG/DL (8.5-10.1); CHLORIDE 97 MEQ/L (98-107); CREATININE 0.55 MG/DL (0.60-1.30); GLOMERULAR FILTRATION RATE 145 ML/MIN (>89); GLUCOSE,RANDOM 106 MG/DL (74-106); SODIUM (NA) 140 MEQ/L (136-145)
[2017-10-26 04:28] LABS: ALKALINE PHOSPHATASE 61 U/L (45-117); PHOSPHORUS 2.8 MG/DL (2.5-4.9); TOTAL BILIRUBIN ADULT 0.9 MG/DL (0.2-1.0); TOTAL PROTEIN 5.7 GM/DL (6.4-8.2)
[2017-10-26 05:08] LABS: STOMATOCYTES 1+ (NORMAL)
[2017-10-26] MEDS: CHLORHEXIDINE GLUCONATE 2 % 1 PACK (2 CLOTHS) TOP SCH ×2 (05:20→19:45)
[2017-10-26] MEDS: PANTOPRAZOLE SODIUM 40 MG VIAL IV PUSH SCH (05:20)
[2017-10-26] MEDS: METOPROLOL TARTRATE 50 MG TAB PO SCH ×2 (08:09→19:45)
[2017-10-26] MEDS: amLODIPine BESYLATE 5 MG TAB PO SCH ×2 (08:09→19:45)
[2017-10-26] MEDS: guaiFENesin E.R. 600 MG TAB PO SCH ×2 (08:09→19:45)
[2017-10-26] MEDS: SODIUM CHLORIDE 0.9% FLUSH 10 ML FLUSH IV FLUSH SCH ×2 (08:09→19:45)
[2017-10-26] MEDS: DOCUSATE SODIUM 50 MG/SENNA 8.6 MG TAB PO SCH (08:09)
[2017-10-26] MEDS: FUROSEMIDE 40 MG/4 ML VIAL IV PUSH SCH (08:09)
[2017-10-26] MEDS: PRAVASTATIN SOD 20 MG TAB PO SCH (08:10)
[2017-10-26] MEDS: FINASTERIDE 5 MG TAB PO SCH (08:10)
[2017-10-26] MEDS ORDERED: ACETAMINOPHEN 325 MG TAB PO PRN (10:00)
[2017-10-26] MEDS ORDERED: diphenhydrAMINE HCL 25 MG CAP PO PRN (10:00)
[2017-10-26] MEDS ORDERED: SODIUM CHLOR 0.9% 250 ML INJ 250 ML IV ONE (10:00)
--- NOTE | 2017-10-26 10:06 | HHI.PR ---
Subjective Remarks Follow-up symptomatic anemia/GI bleed October 26, 2017-patient seen and examined, denies any more GI bleed. Denies any shortness of breath or chest pain. Use BiPAP at night. No acute event overnight Objective Vitals Vital Signs Date Time Temp Pulse Resp B/P (MAP) Pulse Ox O2 Delivery O2 Flow Rate FiO2 10/26/17 09:25 98 Nasal Cannula 4.00 10/26/17 08:00 97.9 94 18 129/76 (93) 98 10/26/17 08:00 94 10/26/17 06:00 96 10/26/17 04:15 96 35 10/26/17 04:00 97.7 95 22 111/55 (73) 91 10/26/17 04:00 95 10/26/17 02:00 103 10/26/17 00:20 98 35 10/26/17 00:00 97.7 101 23 133/70 (91) 96 10/26/17 00:00 101 10/25/17 22:00 97 10/25/17 21:39 98 35 10/25/17 20:00 98.6 140 43 144/66 (92) 92 10/25/17 20:00 140 10/25/17 19:05 98 BiPAP 35 10/25/17 18:00 120 10/25/17 16:00 98 10/25/17 16:00 98.9 98 30 134/70 (91) 97 10/25/17 14:00 107 10/25/17 12:00 98.8 93 26 129/62 (84) 99 10/25/17 12:00 93 10/25/17 10:03 97 I/O 10/25/17 10/25/17 10/25/17 10/26/17 10/26/17 10/26/17 07:00 15:00 23:00 07:00 15:00 23:00 Intake Total 500 ml 350 ml 240 ml Output Total 1475 ml 900 ml 550 ml 1525 ml Balance -975 ml -900 ml -200 ml -1285 ml Intake Oral 500 ml 350 ml 240 ml IV Total 0 ml Output Urine Total 1475 ml 900 ml 550 ml 1525 ml # Bowel Movements 0 1 Result Diagram: 10/26/17 0319 10/26/17 0319 Imaging Last Impressions Chest X-Ray 10/25/17 0000 Signed Impressions: Service Date/Time: Wednesday, October 25, 2017 03:50 - CONCLUSION: 1. Compensated cardiomegaly. 2. Bibasilar atelectatic changes Mayco Bustos MD Objective Remarks GENERAL: NAD SKIN: Warm and dry. HEAD: Normocephalic. EYES: No scleral icterus. No injection or drainage. NECK: Supple, trachea midline. No JVD or lymphadenopathy. CARDIOVASCULAR: Irregular regular rate and rhythm without murmurs, gallops, or rubs. RESPIRATORY: Breath sounds equal bilaterally. No accessory muscle use. GASTROINTESTINAL: Abdomen soft, non-tender, nondistended. MUSCULOSKELETAL: No cyanosis, +Trace edema. BACK: Nontender without obvious deformity. No CVA tenderness. Procedures s/p EGD and colonoscopy with findings of irr z line, mult ulcers stomach, large duodenal ulcer, no bleeding diverticulosis, hemorrhoids. A/P Problem List: (1) Symptomatic anemia ICD Code: D64.9 - Anemia, unspecified (2) Atrial fibrillation ICD Code: I48.91 - Unspecified atrial fibrillation Status: Acute (3) Hyperlipidemia ICD Code: E78.5 - Hyperlipidemia, unspecified Status: Acute (4) Hypertension ICD Code: I10 - Essential (primary) hypertension Status: Acute (5) GI bleed ICD Code: K92.2 - Gastrointestinal hemorrhage, unspecified Status: Acute Assessment and Plan 77-year-old man with Symptomatic anemia GI bleed Status post panendoscopy Secondary to low H&H, will transfuse 1 unit packed red blood cell today October Appreciate input from GI Continue to hold oral anticoagulation Continue PPI Monitor H&H Hypoxia Appreciate input from pulmonary medicine Continue with DuoNeb as needed Maintain oxygen saturations above 88-92% Obstructive sleep apnea BiPAP as needed Atrial fibrillation Hold oral anticoagulation, continue with beta-randy Hypertension Currently on Lovenox 5 mg twice daily and Lopressor 50 mg twice daily BPH Continue Proscar History of CHF Switched to p.o. Lasix however to 40 mg daily as opposed to twice daily as written by previous attending PT consult to treat any wound Transfer to [facility] Problem Qualifiers (1) GI bleed: Qualified Codes: K92.2 - Gastrointestinal hemorrhage, unspecified Lázaro العلي MD October 26, 2017 10:06
--- NOTE | 2017-10-26 11:10 | OTSOAPIP ---
THIS NOT LATE CHARTED FOR 10/25/17 TIME SESSION COMPLETED: AM TREATMENT TIME: 0 MINS. CHART REVIEWED. ATTEMPTED TO SEE FOR OT ASSESSMENT, HOWEVER PATIENT HAS HAD A CHANGE IN STATUS AND WAS TRANSFERRED TO INTENSIVE CARE. WILL REQUIRE A NEW ORDER TO INITIATE SERVICES. Therapist: TEZ MOLINA OT/L Signature on file
--- NOTE | 2017-10-26 18:35 | HHI.PR ---
Subjective Remarks ALERT NO SOB WANTS TO GO HOME Objective Vital Signs Date Time Temp Pulse Resp B/P (MAP) Pulse Ox O2 Delivery O2 Flow Rate FiO2 10/26/17 18:00 107 10/26/17 16:00 98.3 97 17 145/68 (93) 98 10/26/17 16:00 97 10/26/17 15:00 99.3 94 17 154/71 98 10/26/17 14:46 99.6 107 18 124/57 94 10/26/17 14:00 94 10/26/17 12:00 98.3 90 24 113/66 (82) 96 10/26/17 12:00 90 10/26/17 10:00 100 10/26/17 09:25 98 Nasal Cannula 4.00 10/26/17 08:00 97.9 94 18 129/76 (93) 98 10/26/17 08:00 94 10/26/17 06:00 96 10/26/17 04:15 96 35 10/26/17 04:00 97.7 95 22 111/55 (73) 91 10/26/17 04:00 95 10/26/17 02:00 103 10/26/17 00:20 98 35 10/26/17 00:00 97.7 101 23 133/70 (91) 96 10/26/17 00:00 101 10/25/17 22:00 97 10/25/17 21:39 98 35 10/25/17 20:00 98.6 140 43 144/66 (92) 92 10/25/17 20:00 140 10/25/17 19:05 98 BiPAP 35 I/O 10/25/17 10/25/17 10/25/17 10/26/17 10/26/17 10/26/17 07:00 15:00 23:00 07:00 15:00 23:00 Intake Total 500 ml 350 ml 240 ml 20 ml 880 ml Output Total 1475 ml 900 ml 550 ml 1525 ml 1000 ml Balance -975 ml -900 ml -200 ml -1285 ml 20 ml -120 ml Intake Oral 500 ml 350 ml 240 ml 480 ml IV Total 0 ml Packed Cells 400 ml Blood Product IV Normal Saline Flush 20 ml Output Urine Total 1475 ml 900 ml 550 ml 1525 ml 1000 ml # Bowel Movements 0 1 0 Result Diagram: 10/26/179 10/26/17318 Objective Remarks GENERAL: SKIN: Warm and dry. HEAD: Atraumatic. Normocephalic. EYES: Pupils equal and round. No scleral icterus. No injection or drainage. ENT: No nasal bleeding or discharge. Mucous membranes pink and moist. NECK: Trachea midline. No JVD. CARDIOVASCULAR: Regular rate and rhythm. RESPIRATORY: No accessory muscle use. Clear to auscultation. Breath sounds equal bilaterally. GASTROINTESTINAL: Abdomen soft, non-tender, nondistended. Hepatic and splenic margins not palpable. MUSCULOSKELETAL: Extremities without clubbing, cyanosis, or edema. No obvious deformities. NEUROLOGICAL: Awake and alert. No obvious cranial nerve deficits. Motor grossly within normal limits. Five out of 5 muscle strength in the arms and legs. Normal speech. PSYCHIATRIC: Appropriate mood and affect; insight and judgment normal. Assessment and Plan Assessment and Plan IMPRESSIONM RESP FAILURE AFIB ATELECTASIS SDB ? CHINTAN MORBID OBESITY GI BLEED PLAN O2 NEEDED PULM TOILET NPSG POST DC Doc Roach MD October 26, 2017 18:35
--- NOTE | 2017-10-26 19:11 | RADRPT ---
EXAM DATE/TIME: 10/26/2017 18:49 [place] COMPARISON: CHEST SINGLE AP, October 25, 2017, 3:50. INDICATIONS : Difficulty breathing. MEDICAL HISTORY : Atrial fibrillation. SURGICAL HISTORY : None. ENCOUNTER: Subsequent ACUITY: 3 days PAIN SCORE: 0/10 LOCATION: Bilateral chest FINDINGS: A single view of the chest demonstrates cardiomegaly with increase in pulmonary vascularity. Minimal interstitial edema. Osseous structures are intact. CONCLUSION: 1. Improving CHF. Lázaro Cabrera MD on October 26, 2017 at 19:09 Board Certified Radiologist. This report was verified electronically.
[2017-10-26] MEDS: TAMSULOSIN HCL 0.4 MG CAP PO SCH (19:45)
[2017-10-26 21:34] LABS: HEMOGLOBIN 7.8 GM/DL (13.0-17.0)
[2017-10-27] VITALS (19 sets, daily range): BP systolic 107–131; BP diastolic 54–83; PULSE 86–171; RESP 16–34; TEMP 97.9–99.3; O2SAT 86–98
[2017-10-27] MEDS: RESP: LEVALBUTEROL HYDROCHLORIDE 1.25 MG/3 ML NEB (SCH) NEB ×5 (03:58→21:26)
[2017-10-27 04:13] LABS: AUTOMATED NEUTROPHIL # 6.4 TH/MM3 (1.8-7.7); BASOPHIL # 0.1 TH/MM3 (0-0.2); BASOPHIL % 0.6 % (0.0-2.0); EOSINOPHIL # 0.5 TH/MM3 (0-0.4); EOSINOPHIL % 4.7 % (0.0-4.0); HEMATOCRIT 24.8 % (39.0-51.0); HEMOGLOBIN 8.1 GM/DL (13.0-17.0); LYMPH % 14.8 % (9.0-44.0); LYMPHOCYTE # 1.4 TH/MM3 (1.0-4.8); MEAN CELL VOLUME 77.5 FL (80.0-100.0); MEAN CORPUSCULAR HEMOGLOBIN 25.4 PG (27.0-34.0); MEAN CORPUSCULAR HGB CONC 32.8 % (32.0-36.0); MEAN PLATELET VOLUME 7.1 FL (7.0-11.0); MONO % 12.7 % (0.0-8.0); MONOCYTE # 1.2 TH/MM3 (0-0.9); NEUT % 67.2 % (16.0-70.0); PLATELET COUNT 231 TH/MM3 (150-450); RED CELL DISTRIBUTION WIDTH 25.5 % (11.6-17.2); WHITE BLOOD COUNT 9.6 TH/MM3 (4.0-11.0)
[2017-10-27 07:31] LABS: ACANTHOCYTES OCC (NORMAL); STOMATOCYTES 1+ (NORMAL)
[2017-10-27] MEDS: amLODIPine BESYLATE 5 MG TAB PO SCH ×2 (08:13→20:16)
[2017-10-27] MEDS: FINASTERIDE 5 MG TAB PO SCH (08:13)
[2017-10-27] MEDS: SODIUM CHLORIDE 0.9% FLUSH 10 ML FLUSH IV FLUSH SCH ×2 (08:13→20:17)
[2017-10-27] MEDS: PRAVASTATIN SOD 20 MG TAB PO SCH (08:13)
[2017-10-27] MEDS: guaiFENesin E.R. 600 MG TAB PO SCH ×2 (08:13→20:16)
[2017-10-27] MEDS: METOPROLOL TARTRATE 50 MG TAB PO SCH ×2 (08:13→20:16)
[2017-10-27] MEDS: PANTOPRAZOLE SOD 40 MG DELAYED RELEASE TAB PO SCH (08:13)
--- NOTE | 2017-10-27 08:32 | HHI.PR ---
Subjective Remarks ALERT NO SOB Objective Vital Signs Date Time Temp Pulse Resp B/P (MAP) Pulse Ox O2 Delivery O2 Flow Rate FiO2 10/27/17 06:00 106 10/27/17 04:00 106 10/27/17 04:00 98.8 106 24 119/67 (84) 92 10/27/17 02:00 104 10/27/17 00:00 110 10/27/17 00:00 99.0 110 24 120/68 (85) 95 10/26/17 22:23 95 35 10/26/17 22:00 102 10/26/17 21:49 96 Nasal Cannula 4.00 10/26/17 20:00 99.0 116 24 122/57 (78) 94 10/26/17 20:00 116 10/26/17 18:00 107 10/26/17 16:00 98.3 97 17 145/68 (93) 98 10/26/17 16:00 97 10/26/17 15:00 99.3 94 17 154/71 98 10/26/17 14:46 99.6 107 18 124/57 94 10/26/17 14:00 94 10/26/17 12:00 98.3 90 24 113/66 (82) 96 10/26/17 12:00 90 10/26/17 10:00 100 10/26/17 09:25 98 Nasal Cannula 4.00 I/O 10/26/17 10/26/17 10/26/17 10/27/17 10/27/17 10/27/17 07:00 15:00 23:00 07:00 15:00 23:00 Intake Total 240 ml 20 ml 1130 ml 480 ml Output Total 1525 ml 1000 ml 400 ml Balance -1285 ml 20 ml 130 ml 80 ml Intake Oral 240 ml 480 ml 480 ml IV Total 0 ml 250 ml Packed Cells 400 ml Blood Product IV Normal Saline Flush 20 ml Output Urine Total 1525 ml 1000 ml 400 ml # Bowel Movements 1 0 Result Diagram: 10/27/1731110/26/17318 Objective Remarks GENERAL: SKIN: Warm and dry. HEAD: Atraumatic. Normocephalic. EYES: Pupils equal and round. No scleral icterus. No injection or drainage. ENT: No nasal bleeding or discharge. Mucous membranes pink and moist. NECK: Trachea midline. No JVD. CARDIOVASCULAR: Regular rate and rhythm. RESPIRATORY: No accessory muscle use. Clear to auscultation. Breath sounds equal bilaterally. GASTROINTESTINAL: Abdomen soft, non-tender, nondistended. Hepatic and splenic margins not palpable. MUSCULOSKELETAL: Extremities without clubbing, cyanosis, or edema. No obvious deformities. NEUROLOGICAL: Awake and alert. No obvious cranial nerve deficits. Motor grossly within normal limits. Five out of 5 muscle strength in the arms and legs. Normal speech. PSYCHIATRIC: Appropriate mood and affect; insight and judgment normal. Assessment and Plan Assessment and Plan IMPRESSIONM RESP FAILURE AFIB ATELECTASIS SDB ? CHINTAN MORBID OBESITY GI BLEED CXRAY , RESOLVING CHF PLAN O2 NEEDED PULM TOILET NPSG POST DC Doc Roach MD October 27, 2017 08:32
[2017-10-27] MEDS ORDERED: PROT40TA PO (10:43)
--- NOTE | 2017-10-27 10:46 | HHI.PR ---
Subjective Remarks Follow-up symptomatic anemia/GI bleed October 26, 2017-patient seen and examined, denies any more GI bleed. Denies any shortness of breath or chest pain. Use BiPAP at night. No acute event overnight October 27, 2017-patient seen and examined, was transfused 1 unit of red blood cells yesterday for a total of 7 since admission. H&H stable and no report of any GI bleed overnight. He denies any shortness of breath. Wants to go home. Objective Vitals Vital Signs Date Time Temp Pulse Resp B/P (MAP) Pulse Ox O2 Delivery O2 Flow Rate FiO2 10/27/17 09:33 98 Nasal Cannula 2.00 10/27/17 09:00 91 10/27/17 09:00 171 30 86 10/27/17 08:00 120 10/27/17 08:00 97.9 120 34 131/83 (99) 92 10/27/17 06:00 106 10/27/17 04:00 106 10/27/17 04:00 98.8 106 24 119/67 (84) 92 10/27/17 02:00 104 10/27/17 00:00 110 10/27/17 00:00 99.0 110 24 120/68 (85) 95 10/26/17 22:23 95 35 10/26/17 22:00 102 10/26/17 21:49 96 Nasal Cannula 4.00 10/26/17 20:00 99.0 116 24 122/57 (78) 94 10/26/17 20:00 116 10/26/17 18:00 107 10/26/17 16:00 98.3 97 17 145/68 (93) 98 10/26/17 16:00 97 10/26/17 15:00 99.3 94 17 154/71 98 10/26/17 14:46 99.6 107 18 124/57 94 10/26/17 14:00 94 10/26/17 12:00 98.3 90 24 113/66 (82) 96 10/26/17 12:00 90 I/O 10/26/17 10/26/17 10/26/17 10/27/17 10/27/17 10/27/17 07:00 15:00 23:00 07:00 15:00 23:00 Intake Total 240 ml 20 ml 1130 ml 480 ml Output Total 1525 ml 1000 ml 400 ml Balance -1285 ml 20 ml 130 ml 80 ml Intake Oral 240 ml 480 ml 480 ml IV Total 0 ml 250 ml Packed Cells 400 ml Blood Product IV Normal Saline Flush 20 ml Output Urine Total 1525 ml 1000 ml 400 ml # Bowel Movements 1 0 Result Diagram: 10/27/17 0312 10/26/17 0319 Imaging Last Impressions Chest X-Ray 10/26/17 0000 Signed Impressions: Service Date/Time: Thursday, October 26, 2017 18:49 - CONCLUSION: 1. Improving CHF. Lázaro Cabrera MD Objective Remarks GENERAL: NAD SKIN: Warm and dry. HEAD: Normocephalic. EYES: No scleral icterus. No injection or drainage. NECK: Supple, trachea midline. No JVD or lymphadenopathy. CARDIOVASCULAR: Irregular regular rate and rhythm without murmurs, gallops, or rubs. RESPIRATORY: Breath sounds equal bilaterally. No accessory muscle use. GASTROINTESTINAL: Abdomen soft, non-tender, nondistended. MUSCULOSKELETAL: No cyanosis, +Trace edema. BACK: Nontender without obvious deformity. No CVA tenderness. Procedures s/p EGD and colonoscopy with findings of irr z line, mult ulcers stomach, large duodenal ulcer, no bleeding diverticulosis, hemorrhoids. A/P Problem List: (1) Symptomatic anemia ICD Code: D64.9 - Anemia, unspecified (2) Atrial fibrillation ICD Code: I48.91 - Unspecified atrial fibrillation Status: Acute (3) Hyperlipidemia ICD Code: E78.5 - Hyperlipidemia, unspecified Status: Acute (4) Hypertension ICD Code: I10 - Essential (primary) hypertension Status: Acute (5) GI bleed ICD Code: K92.2 - Gastrointestinal hemorrhage, unspecified Status: Acute Assessment and Plan 77-year-old man with Symptomatic anemia GI bleed Status post panendoscopy Secondary to low H&H, will transfuse 1 unit packed red blood cell October 26, 2017 for total of 7 units since admission Appreciate input from GI Continue to hold oral anticoagulation Continue PPI Monitor H&H Hypoxia Appreciate input from pulmonary medicine Continue with DuoNeb as needed Maintain oxygen saturations above 88-92% Obstructive sleep apnea BiPAP as needed Atrial fibrillation Okay to resume oral anticoagulation, continue with beta-randy Hypertension Currently on Norvasc 5 mg twice daily and Lopressor 50 mg twice daily BPH Continue Proscar History of CHF Switched to p.o. Lasix however to 40 mg daily as opposed to twice daily as written by previous attending PT consult to treat any wound Problem Qualifiers (1) Atrial fibrillation: Qualified Codes: I48.0 - Paroxysmal atrial fibrillation (2) GI bleed: Qualified Codes: K92.2 - Gastrointestinal hemorrhage, unspecified Lázaro العلي MD October 27, 2017 10:46
[2017-10-27] MEDS ORDERED: AMLO5 PO (10:48)
--- NOTE | 2017-10-27 10:52 | HHI.FF ---
Face to Face Verification Diagnosis: (1) Symptomatic anemia (2) GI bleed (3) Atrial fibrillation Physical Therapy Order: Evaluate and Treat Home Health Nursing Order: Signs/symptoms of disease process I have seen patient Yuan Mcgill on 10/27/17. My clinical findings support the need for the requested home health care services because: Deconditioned w/ increased weakness I certify that my clinical findings support that this patient is homebound because: Unsteady gait/balance Poor cardiac reserve Lázaro العلي MD October 27, 2017 10:52
--- NOTE | 2017-10-27 10:56 | HHI.DS ---
Discharge Summary Admission Date Oct 21, 2017 at 17:41 Discharge Date: October 27, 2017 Admitting Diagnosis gi bleed,critical anemia,anticoagulated (1) Symptomatic anemia ICD Code: D64.9 - Anemia, unspecified (2) Atrial fibrillation ICD Code: I48.91 - Unspecified atrial fibrillation Status: Acute (3) Hyperlipidemia ICD Code: E78.5 - Hyperlipidemia, unspecified Status: Acute (4) Hypertension ICD Code: I10 - Essential (primary) hypertension Status: Acute (5) GI bleed ICD Code: K92.2 - Gastrointestinal hemorrhage, unspecified Status: Acute (6) Systolic CHF ICD Code: I50.20 - Unspecified systolic (congestive) heart failure Procedures s/p EGD and colonoscopy with findings of irr z line, mult ulcers stomach, large duodenal ulcer, no bleeding diverticulosis, hemorrhoids. Brief History - From Admission 77-year-old gentleman with history of atrial fibrillation on Eliquis presents complaining of diarrhea of dark stool and weakness. The symptoms are started a couple days ago. He had 3 episodes today. He denies vomiting or abdominal pain or presyncopal symptoms. Symptom severity is moderate. No alleviating factors. He does not know if he is currently taking or recently take antibiotics. He denies prior diarrhea issues or colon problems. CBC/BMP: 10/27/17 0312 10/26/17 0319 Significant Findings Laboratory Tests Test 10/25/17 05:50 10/25/17 11:00 10/25/17 18:25 10/26/17 03:19 Red Blood Count 2.93 MIL/MM3 (4.50-5.90) 3.02 MIL/MM3 (4.50-5.90) Hemoglobin 7.4 GM/DL (13.0-17.0) 7.5 GM/DL (13.0-17.0) Hematocrit 22.6 % (39.0-51.0) 23.4 % (39.0-51.0) Mean Corpuscular Volume 77.2 FL (80.0-100.0) 77.4 FL (80.0-100.0) Mean Corpuscular Hemoglobin 25.3 PG (27.0-34.0) 24.8 PG (27.0-34.0) Red Cell Distribution Width 26.5 % (11.6-17.2) 26.5 % (11.6-17.2) Mean Platelet Volume 6.9 FL (7.0-11.0) 6.9 FL (7.0-11.0) Neutrophils (%) (Auto) 71.7 % (16.0-70.0) Monocytes (%) (Auto) 13.8 % (0.0-8.0) 12.1 % (0.0-8.0) Monocytes # (Auto) 1.3 TH/MM3 (0-0.9) 1.1 TH/MM3 (0-0.9) Polychromasia 2.2 % (0.0-1.9) Ovalocytes 1+ (NORMAL) Random Glucose 112 MG/DL (74-106) Total Protein 5.6 GM/DL (6.4-8.2) 5.7 GM/DL (6.4-8.2) Albumin 2.3 GM/DL (3.4-5.0) 2.3 GM/DL (3.4-5.0) Calcium Level 7.8 MG/DL (8.5-10.1) 7.8 MG/DL (8.5-10.1) Phosphorus Level 2.4 MG/DL (2.5-4.9) Potassium Level 3.4 MEQ/L (3.5-5.1) Chloride Level 97 MEQ/L (98-107) 97 MEQ/L (98-107) Carbon Dioxide Level 38.6 MEQ/L (21.0-32.0) 38.9 MEQ/L (21.0-32.0) Anion Gap 4 MEQ/L (5-15) 4 MEQ/L (5-15) Blood Gas HCO3 38 mmol/L (22-26) Blood Gas Base Excess 12.5 mmol/L (-2-2) Arterial Blood Partial Pressure CO2 60 mmHg (38-42) Arterial Blood Partial Pressure O2 123 mmHg (61-120) Arterial Blood Oxygen Content 10.5 Vol % (12.0-20.0) Blood Gas Hemoglobin 7.6 G/DL (12.0-16.0) Stomatocytes 1+ (NORMAL) Creatinine 0.55 MG/DL (0.60-1.30) Test 10/26/17 20:51 10/27/17 03:12 Hemoglobin 7.8 GM/DL (13.0-17.0) 8.1 GM/DL (13.0-17.0) Hematocrit 24.0 % (39.0-51.0) 24.8 % (39.0-51.0) Red Blood Count 3.20 MIL/MM3 (4.50-5.90) Mean Corpuscular Volume 77.5 FL (80.0-100.0) Mean Corpuscular Hemoglobin 25.4 PG (27.0-34.0) Red Cell Distribution Width 25.5 % (11.6-17.2) Monocytes (%) (Auto) 12.7 % (0.0-8.0) Eosinophils (%) (Auto) 4.7 % (0.0-4.0) Monocytes # (Auto) 1.2 TH/MM3 (0-0.9) Eosinophils # (Auto) 0.5 TH/MM3 (0-0.4) Polychromasia 2.0 % (0.0-1.9) Stomatocytes 1+ (NORMAL) Imaging Last Impressions Chest X-Ray 10/26/17 0000 Signed Impressions: Service Date/Time: Thursday, October 26, 2017 18:49 - CONCLUSION: 1. Improving CHF. Lázaro Cabrera MD PE at Discharge GENERAL: NAD SKIN: Warm and dry. HEAD: Normocephalic. EYES: No scleral icterus. No injection or drainage. NECK: Supple, trachea midline. No JVD or lymphadenopathy. CARDIOVASCULAR: Irregular regular rate and rhythm without murmurs, gallops, or rubs. RESPIRATORY: Breath sounds equal bilaterally. No accessory muscle use. GASTROINTESTINAL: Abdomen soft, non-tender, nondistended. MUSCULOSKELETAL: No cyanosis, +Trace edema. BACK: Nontender without obvious deformity. No CVA tenderness. Hospital Course While the patient was in the hospital, he was treated for: Symptomatic anemia GI bleed Status post panendoscopy Secondary to low H&H, he transfused 7 units since admission Gastroenterology was consulted Oral anticoagulation was held, which patient should be able to resume outpatient H&H was monitored and patient was treated with PPI Hypoxia Appreciate input from pulmonary medicine was consulted Patient was treated with DuoNeb as needed Maintain oxygen saturations above 88-92% Obstructive sleep apnea BiPAP as needed Atrial fibrillation Okay to resume oral anticoagulation, he was treated with beta-randy Hypertension He was treated Norvasc 5 mg twice daily and Lopressor 50 mg twice daily BPH He Was treated Proscar History of Systolic CHF He responded well to Lasix Pt Condition on Discharge: Good Discharge Disposition: Disch w/ Home Health Serv Discharge Time: > 30 minutes Discharge Instructions DIET: Follow Instructions for: Heart Healthy Diet Activities you can perform: Regular-No Restrictions Follow up Referrals: Gastroenterology PCP Follow-up - 1 Week New Medications: Pantoprazole (Protonix) 40 Mg Tab 40 MG PO DAILY for Reflux, #30 TAB 0 Refills Amlodipine (Norvasc) 5 Mg Tab 5 MG PO BID for Blood Pressure Management, #60 TAB 3 Refills Continued Medications: Apixaban (Eliquis) 5 Mg Tab 5 MG PO BID for Blood Clot Prevention, #60 TAB 0 Refills Finasteride (Finasteride) 5 Mg Tab 5 MG PO DAILY for Manage Prostate Problems, #30 TAB 0 Refills Do not crush. Furosemide (Lasix) 40 Mg Tab 40 MG PO DAILY for fluid retention, #62 TAB Metoprolol Tartrate (Lopressor) 50 Mg Tab 50 MG PO Q12HR for atrial fib, #60 TAB Potassium Chloride ER (Potassium Chloride ER) 20 Meq Tab 20 MEQ PO BID for Electrolyte Replacement, #60 TAB 0 Refills Simvastatin (Simvastatin) 10 Mg Tab 10 MG PO DAILY for Cholesterol Management, #30 TAB 0 Refills Tamsulosin (Tamsulosin) 0.4 Mg Cap 0.4 MG PO HS for Manage Prostate Problems, #30 CAP 0 Refills Discontinued Medications: Diltiazem (Diltiazem) 90 Mg Tab 90 MG PO QID for cough, #20 TAB Lázaro العلي MD October 27, 2017 10:55
[2017-10-27] MEDS: FUROSEMIDE 40 MG TAB PO SCH (13:43)
[2017-10-27] MEDS: MAGNESIUM HYDROXIDE SUSP 30 ML CUP PO PRN (18:52)
[2017-10-27] MEDS: TAMSULOSIN HCL 0.4 MG CAP PO SCH (20:16)
[2017-10-28] VITALS (18 sets, daily range): BP systolic 106–146; BP diastolic 60–81; PULSE 77–104; RESP 17–42; TEMP 97.6–99; O2SAT 81–100
[2017-10-28] MEDS: CHLORHEXIDINE GLUCONATE 2 % 1 PACK (2 CLOTHS) TOP SCH (04:00)
[2017-10-28] MEDS: FUROSEMIDE 40 MG TAB PO SCH (08:18)
[2017-10-28] MEDS: guaiFENesin E.R. 600 MG TAB PO SCH ×2 (08:18→22:45)
[2017-10-28] MEDS: PANTOPRAZOLE SOD 40 MG DELAYED RELEASE TAB PO SCH (08:18)
[2017-10-28] MEDS: PRAVASTATIN SOD 20 MG TAB PO SCH (08:18)
[2017-10-28] MEDS: amLODIPine BESYLATE 5 MG TAB PO SCH ×2 (08:19→22:45)
[2017-10-28] MEDS: SODIUM CHLORIDE 0.9% FLUSH 10 ML FLUSH IV FLUSH SCH ×2 (08:19→22:45)
[2017-10-28] MEDS: METOPROLOL TARTRATE 50 MG TAB PO SCH ×2 (08:19→22:45)
[2017-10-28] MEDS: FINASTERIDE 5 MG TAB PO SCH (08:19)
--- NOTE | 2017-10-28 09:07 | HHI.PR ---
Subjective Remarks ALERT no distress occasional wheeze Objective Vital Signs Date Time Temp Pulse Resp B/P (MAP) Pulse Ox O2 Delivery O2 Flow Rate FiO2 10/28/17 06:00 77 10/28/17 05:03 100 35 10/28/17 04:00 98.4 87 20 130/60 (83) 95 10/28/17 04:00 83 10/28/17 02:00 84 10/28/17 01:19 97 35 10/28/17 00:00 97.6 86 23 121/79 (93) 95 10/28/17 00:00 83 10/27/17 22:00 86 10/27/17 21:29 98 35 10/27/17 20:00 92 10/27/17 20:00 99.3 93 19 119/65 (83) 96 10/27/17 18:00 101 10/27/17 16:00 110 10/27/17 16:00 110 27 91 10/27/17 15:33 113 10/27/17 15:33 113 16 124/58 (80) 91 10/27/17 15:00 113 10/27/17 15:00 113 29 92 10/27/17 14:00 102 22 107/54 (71) 94 10/27/17 14:00 102 10/27/17 13:00 96 10/27/17 13:00 96 22 94 10/27/17 12:00 156 10/27/17 12:00 98.1 156 31 97 10/27/17 11:00 88 10/27/17 10:00 124 10/27/17 09:33 98 Nasal Cannula 2.00 I/O 10/27/17 10/27/17 10/27/17 10/28/17 10/28/17 10/28/17 07:00 15:00 23:00 07:00 15:00 23:00 Intake Total 480 ml 1200 ml Output Total 400 ml 275 ml 1550 ml Balance 80 ml 925 ml -1550 ml Intake Oral 480 ml 1200 ml Output Urine Total 400 ml 275 ml 1550 ml # Voids 6 # Bowel Movements 0 Result Diagram: 10/27/17 0312 10/26/179 Objective Remarks GENERAL: SKIN: Warm and dry. HEAD: Atraumatic. Normocephalic. EYES: Pupils equal and round. No scleral icterus. No injection or drainage. ENT: No nasal bleeding or discharge. Mucous membranes pink and moist. NECK: Trachea midline. No JVD. CARDIOVASCULAR: Regular rate and rhythm. RESPIRATORY: No accessory muscle use. Clear to auscultation. Breath sounds equal bilaterally. GASTROINTESTINAL: Abdomen soft, non-tender, nondistended. Hepatic and splenic margins not palpable. MUSCULOSKELETAL: Extremities without clubbing, cyanosis, or edema. No obvious deformities. NEUROLOGICAL: Awake and alert. No obvious cranial nerve deficits. Motor grossly within normal limits. Five out of 5 muscle strength in the arms and legs. Normal speech. PSYCHIATRIC: Appropriate mood and affect; insight and judgment normal. Assessment and Plan Assessment and Plan IMPRESSIONM RESP FAILURE AFIB ATELECTASIS SDB ? CHINTAN MORBID OBESITY GI BLEED PLAN O2 NEEDED NEB ALBUTEROL PRN NPSG POST DC Doc Roach MD October 28, 2017 09:07
[2017-10-28] MEDS ORDERED: RESP: ALBUTEROL 0.63 MG/3 ML NEB (PRN) NEB (09:15)
--- NOTE | 2017-10-28 11:24 | HHI.PR ---
Subjective Remarks Follow-up symptomatic anemia/GI bleed October 26, 2017-patient seen and examined, denies any more GI bleed. Denies any shortness of breath or chest pain. Use BiPAP at night. No acute event overnight October 27, 2017-patient seen and examined, was transfused 1 unit of red blood cells yesterday for a total of 7 since admission. H&H stable and no report of any GI bleed overnight. He denies any shortness of breath. Wants to go home. October 28, 2017-patient seen and examined, no complaint and no acute event overnight. Afebrile Objective Vitals Vital Signs Date Time Temp Pulse Resp B/P (MAP) Pulse Ox O2 Delivery O2 Flow Rate FiO2 10/28/17 10:00 86 10/28/17 09:00 101 10/28/17 09:00 101 34 81 10/28/17 08:00 103 10/28/17 08:00 98.6 103 32 146/67 (93) 91 10/28/17 06:00 77 10/28/17 05:03 100 35 10/28/17 04:00 98.4 87 20 130/60 (83) 95 10/28/17 04:00 83 10/28/17 02:00 84 10/28/17 01:19 97 35 10/28/17 00:00 97.6 86 23 121/79 (93) 95 10/28/17 00:00 83 10/27/17 22:00 86 10/27/17 21:29 98 35 10/27/17 20:00 92 10/27/17 20:00 99.3 93 19 119/65 (83) 96 10/27/17 18:00 101 10/27/17 16:00 110 10/27/17 16:00 110 27 91 10/27/17 15:33 113 10/27/17 15:33 113 16 124/58 (80) 91 10/27/17 15:00 113 10/27/17 15:00 113 29 92 10/27/17 14:00 102 22 107/54 (71) 94 10/27/17 14:00 102 10/27/17 13:00 96 10/27/17 13:00 96 22 94 10/27/17 12:00 156 10/27/17 12:00 98.1 156 31 97 I/O 10/27/17 10/27/17 10/27/17 10/28/17 10/28/17 10/28/17 07:00 15:00 23:00 07:00 15:00 23:00 Intake Total 480 ml 1200 ml Output Total 400 ml 275 ml 1550 ml Balance 80 ml 925 ml -1550 ml Intake Oral 480 ml 1200 ml Output Urine Total 400 ml 275 ml 1550 ml # Voids 6 # Bowel Movements 0 Result Diagram: 10/27/17 0312 10/26/17 0319 Imaging Last Impressions Chest X-Ray 10/26/17 0000 Signed Impressions: Service Date/Time: Thursday, October 26, 2017 18:49 - CONCLUSION: 1. Improving CHF. Lázaro Cabrera MD Objective Remarks GENERAL: NAD SKIN: Warm and dry. HEAD: Normocephalic. EYES: No scleral icterus. No injection or drainage. NECK: Supple, trachea midline. No JVD or lymphadenopathy. CARDIOVASCULAR: Irregular regular rate and rhythm without murmurs, gallops, or rubs. RESPIRATORY: Breath sounds equal bilaterally. No accessory muscle use. GASTROINTESTINAL: Abdomen soft, non-tender, nondistended. MUSCULOSKELETAL: No cyanosis, +Trace edema. BACK: Nontender without obvious deformity. No CVA tenderness. Procedures s/p EGD and colonoscopy with findings of irr z line, mult ulcers stomach, large duodenal ulcer, no bleeding diverticulosis, hemorrhoids. A/P Problem List: (1) Symptomatic anemia ICD Code: D64.9 - Anemia, unspecified (2) Atrial fibrillation ICD Code: I48.91 - Unspecified atrial fibrillation Status: Acute (3) Hyperlipidemia ICD Code: E78.5 - Hyperlipidemia, unspecified Status: Acute (4) Hypertension ICD Code: I10 - Essential (primary) hypertension Status: Acute (5) GI bleed ICD Code: K92.2 - Gastrointestinal hemorrhage, unspecified Status: Acute Assessment and Plan 77-year-old man with Symptomatic anemia GI bleed Status post panendoscopy Secondary to low H&H, will transfuse 1 unit packed red blood cell October 26, 2017 for total of 7 units since admission Appreciate input from GI Continue to hold oral anticoagulation Continue PPI Monitor H&H Hypoxia Appreciate input from pulmonary medicine Continue with DuoNeb as needed Maintain oxygen saturations above 88-92% Obstructive sleep apnea BiPAP as needed Atrial fibrillation Resume oral anticoagulation, continue with beta-randy Hypertension Currently on Norvasc 5 mg twice daily and Lopressor 50 mg twice daily BPH Continue Proscar History of CHF on p.o. Lasix however to 40 mg daily PT consult to treat any wound Transfer to Med/Surg if not discharge to SNF Problem Qualifiers (1) Atrial fibrillation: Qualified Codes: I48.0 - Paroxysmal atrial fibrillation (2) GI bleed: Qualified Codes: K92.2 - Gastrointestinal hemorrhage, unspecified Lázaro العلي MD October 28, 2017 11:24
[2017-10-28 15:29] LABS: AUTOMATED NEUTROPHIL # 5.7 TH/MM3 (1.8-7.7); BASOPHIL # 0.1 TH/MM3 (0-0.2); EOSINOPHIL # 0.4 TH/MM3 (0-0.4); EOSINOPHIL % 5.2 % (0.0-4.0); HEMATOCRIT 26.9 % (39.0-51.0); HEMOGLOBIN 8.5 GM/DL (13.0-17.0); LYMPH % 14.5 % (9.0-44.0); LYMPHOCYTE # 1.2 TH/MM3 (1.0-4.8); MEAN CELL VOLUME 78.1 FL (80.0-100.0); MEAN CORPUSCULAR HEMOGLOBIN 24.8 PG (27.0-34.0); MEAN CORPUSCULAR HGB CONC 31.7 % (32.0-36.0); MEAN PLATELET VOLUME 6.9 FL (7.0-11.0); MONO % 12.7 % (0.0-8.0); MONOCYTE # 1.1 TH/MM3 (0-0.9); NEUT % 66.6 % (16.0-70.0); PLATELET COUNT 297 TH/MM3 (150-450); RED BLOOD COUNT 3.45 MIL/MM3 (4.50-5.90); RED CELL DISTRIBUTION WIDTH 25.2 % (11.6-17.2); WHITE BLOOD COUNT 8.6 TH/MM3 (4.0-11.0)
[2017-10-28 15:54] LABS: ALBUMIN 2.5 GM/DL (3.4-5.0); ALT (GPT) 19 U/L (12-78); AST (GOT) 21 U/L (15-37); BICARBONATE 37.7 MEQ/L (21.0-32.0); BLOOD UREA NITROGEN 13 MG/DL (7-18); CHLORIDE 98 MEQ/L (98-107); CREATININE 0.69 MG/DL (0.60-1.30); GLOMERULAR FILTRATION RATE 111 ML/MIN (>89); GLUCOSE,RANDOM 103 MG/DL (74-106); SODIUM (NA) 142 MEQ/L (136-145)
[2017-10-28 15:56] LABS: ALKALINE PHOSPHATASE 68 U/L (45-117); TOTAL BILIRUBIN ADULT 0.8 MG/DL (0.2-1.0); TOTAL PROTEIN 6.2 GM/DL (6.4-8.2)
[2017-10-28 16:20] LABS: KERATOCYTES OCC (NORMAL); OVALOCYTES 2+ (NORMAL)
[2017-10-28] MEDS: RESP: ALBUTEROL 2.5 MG/IPRATROPIUM 0.5 MG NEB (PRN) INH (17:02)
[2017-10-28] MEDS: TAMSULOSIN HCL 0.4 MG CAP PO SCH (22:45)
[2017-10-29] VITALS (9 sets, daily range): BP systolic 110–139; BP diastolic 55–71; PULSE 75–117; RESP 18–20; TEMP 98–98.8; O2SAT 93–97
[2017-10-29] MEDS: CHLORHEXIDINE GLUCONATE 2 % 1 PACK (2 CLOTHS) TOP SCH (04:00)
[2017-10-29] MEDS: SODIUM CHLORIDE 0.9% FLUSH 10 ML FLUSH IV FLUSH SCH ×2 (08:46→21:44)
[2017-10-29] MEDS: FUROSEMIDE 40 MG TAB PO SCH (08:46)
[2017-10-29] MEDS: PRAVASTATIN SOD 20 MG TAB PO SCH (08:46)
[2017-10-29] MEDS: FINASTERIDE 5 MG TAB PO SCH (08:46)
[2017-10-29] MEDS: PANTOPRAZOLE SOD 40 MG DELAYED RELEASE TAB PO SCH (08:46)
[2017-10-29] MEDS: guaiFENesin E.R. 600 MG TAB PO SCH ×2 (08:46→21:43)
[2017-10-29] MEDS: METOPROLOL TARTRATE 50 MG TAB PO SCH ×2 (08:46→21:42)
[2017-10-29] MEDS: amLODIPine BESYLATE 5 MG TAB PO SCH ×2 (08:46→21:42)
--- NOTE | 2017-10-29 10:54 | HHI.PR ---
Subjective Remarks Awaiting insurance authorization for SNF placement. Patient has no complaints at this time. Denies chest pain, dyspnea, nausea, vomiting, diarrhea, constipation. Objective Vitals Vital Signs Date Time Temp Pulse Resp B/P (MAP) Pulse Ox O2 Delivery O2 Flow Rate FiO2 10/29/17 08:00 96 10/29/17 08:00 98.2 84 20 135/71 (92) 97 10/29/17 04:00 98.4 91 18 123/61 (81) 93 10/29/17 04:00 84 10/29/17 00:00 81 10/28/17 23:25 98.9 83 18 112/67 (82) 99 10/28/17 20:15 98.1 90 17 120/61 (80) 95 10/28/17 20:00 97 10/28/17 17:02 98 Nasal Cannula 2.00 10/28/17 16:00 85 10/28/17 16:00 99.0 100 19 126/81 (96) 98 10/28/17 13:00 100 10/28/17 13:00 100 42 95 10/28/17 12:40 98 Nasal Cannula 2.00 10/28/17 12:01 104 10/28/17 12:01 104 30 106/65 (79) 93 10/28/17 12:00 87 10/28/17 12:00 98.2 87 33 106/65 (79) 97 I/O 10/28/17 10/28/17 10/28/17 10/29/17 10/29/17 10/29/17 07:00 15:00 23:00 07:00 15:00 23:00 Intake Total 480 ml Output Total 1550 ml 575 ml Balance -1550 ml -95 ml Intake Oral 480 ml Output Urine Total 1550 ml 575 ml # Bowel Movements 0 Result Diagram: 10/28/17 1505 10/28/17 1505 Imaging Last Impressions Chest X-Ray 10/26/17 0000 Signed Impressions: Service Date/Time: Thursday, October 26, 2017 18:49 - CONCLUSION: 1. Improving CHF. Lázaro Cabrera MD Objective Remarks General: No acute distress. Heart: Irregular rhythm. No murmur. Lungs: Clear to auscultation bilaterally. No wheezes, rales, or rhonchi. Breathing is nonlabored. Abdomen: Soft, nontender, nondistended. Extremities: 1+ bilateral lower extremity edema with chronic venous stasis changes. Psych: Alert and oriented. Neuro: Normal speech. No focal deficits noted. Procedures s/p EGD and colonoscopy with findings of irr z line, mult ulcers stomach, large duodenal ulcer, no bleeding diverticulosis, hemorrhoids. Urinary Catheter: No Vascular Central Line Catheter: No A/P Problem List: (1) Symptomatic anemia ICD Code: D64.9 - Anemia, unspecified (2) Atrial fibrillation ICD Code: I48.91 - Unspecified atrial fibrillation Status: Acute (3) Hyperlipidemia ICD Code: E78.5 - Hyperlipidemia, unspecified Status: Acute (4) Hypertension ICD Code: I10 - Essential (primary) hypertension Status: Acute (5) GI bleed ICD Code: K92.2 - Gastrointestinal hemorrhage, unspecified Status: Acute (6) Systolic CHF ICD Code: I50.20 - Unspecified systolic (congestive) heart failure Assessment and Plan 1. Symptomatic anemia secondary to GI bleed: Status post panendoscopy. Patient received a total of 7 units PRBCs during this hospitalization. Appreciate GI recommendations. Continue PPI. 2. Hypoxia: Appreciate pulmonology recommendations. DuoNeb as needed. Supplemental oxygen to maintain oxygen saturations above 88-92%. 3. Obstructive sleep apnea: BiPAP at night. 4. Atrial fibrillation: Continue Lopressor for rate control. Anticoagulation has been on hold secondary to GI bleed. Ordered to restart at discharge. 5. Hypertension: Continue Norvasc, Lopressor. 6. BPH: Continue Proscar. 7. Chronic systolic congestive heart failure: Continue Lasix, beta-randy. 8. DVT prophylaxis: SCDs. Discharge Planning Plan for discharge to SNF when arrangements are made. Case management assisting with discharge planning. Awaiting insurance authorization. Problem Qualifiers (1) Atrial fibrillation: Qualified Codes: I48.0 - Paroxysmal atrial fibrillation (2) GI bleed: Qualified Codes: K92.2 - Gastrointestinal hemorrhage, unspecified Leo Moreno MD October 29, 2017 10:54
--- NOTE | 2017-10-29 19:00 | HHI.PR ---
Subjective Remarks Has some cough and wheezing. On O2 2 l. No fever. Objective Vital Signs Date Time Temp Pulse Resp B/P (MAP) Pulse Ox O2 Delivery O2 Flow Rate FiO2 10/29/17 16:00 98.8 95 18 130/65 (86) 95 10/29/17 16:00 117 10/29/17 13:21 96 Nasal Cannula 2.00 10/29/17 12:00 84 10/29/17 12:00 98.8 75 18 110/55 (73) 96 10/29/17 08:00 96 10/29/17 08:00 98.2 84 20 135/71 (92) 97 10/29/17 04:00 98.4 91 18 123/61 (81) 93 10/29/17 04:00 84 10/29/17 00:00 81 10/28/17 23:25 98.9 83 18 112/67 (82) 99 10/28/17 20:15 98.1 90 17 120/61 (80) 95 10/28/17 20:00 97 I/O 10/28/17 10/28/17 10/28/17 10/29/17 10/29/17 10/29/17 07:00 15:00 23:00 07:00 15:00 23:00 Intake Total 480 ml Output Total 1550 ml 575 ml Balance -1550 ml -95 ml Intake Oral 480 ml Output Urine Total 1550 ml 575 ml # Bowel Movements 0 Result Diagram: 10/28/17 1505 10/28/17 1505 Objective Remarks Elderly Obese W/M in no distress HEENT: Unremarkable. Eyes without icterus. NECK: Without adenopathy, thyroid enlargement. Central trachea. CHEST: Few rhonchi at bases, decreased with cough. CARDIAC: PMI distant. Irregularity noted. ABDOMEN: Lax, bowel sounds audible. EXTREMITIES: 1 + edema, chronic venous stasis changes noted. Assessment and Plan Assessment and Plan IMPRESSION: 1. Sleep disordered breathing, obstructive sleep apnea suspect. 2. Morbid obesity. 3. Acute gastrointestinal bleed.Resolved 4. Anemia due to above. 5. Hypertension. 6. Hyperlipidemia. 7. Atrial fibrillation. Plan : 1. Continue on O2 2L 2. CBC,BMP in am 3. Duonebs tid. 4. PT evaluation. 5. Arrange home o2 and sleep study as OP Ben Jones MD October 29, 2017 19:00
[2017-10-29] MEDS: TAMSULOSIN HCL 0.4 MG CAP PO SCH (21:42)
[2017-10-30] VITALS (8 sets, daily range): BP systolic 112–158; BP diastolic 57–87; PULSE 81–127; RESP 20–22; TEMP 98.1–98.6; O2SAT 95–98
[2017-10-30] MEDS: CHLORHEXIDINE GLUCONATE 2 % 1 PACK (2 CLOTHS) TOP SCH (03:46)
[2017-10-30] MEDS: SODIUM CHLORIDE 0.9% FLUSH 10 ML FLUSH IV FLUSH SCH ×2 (08:00→20:08)
[2017-10-30] MEDS: FUROSEMIDE 40 MG TAB PO SCH (08:00)
[2017-10-30] MEDS: METOPROLOL TARTRATE 50 MG TAB PO SCH ×2 (08:01→20:08)
[2017-10-30] MEDS: guaiFENesin E.R. 600 MG TAB PO SCH ×2 (08:01→20:08)
[2017-10-30] MEDS: amLODIPine BESYLATE 5 MG TAB PO SCH ×2 (08:01→20:08)
[2017-10-30] MEDS: PANTOPRAZOLE SOD 40 MG DELAYED RELEASE TAB PO SCH (08:02)
[2017-10-30] MEDS: PRAVASTATIN SOD 20 MG TAB PO SCH (08:02)
[2017-10-30] MEDS: FINASTERIDE 5 MG TAB PO SCH (08:02)
--- NOTE | 2017-10-30 11:27 | HHI.PR ---
Subjective Remarks Follow up weakness. Awaiting SNF placement. 8 beat run of V-tach this morning, asymptomatic. Objective Vitals Vital Signs Date Time Temp Pulse Resp B/P (MAP) Pulse Ox O2 Delivery O2 Flow Rate FiO2 10/30/17 08:54 98 Nasal Cannula 2.00 10/30/17 08:00 90 10/30/17 08:00 98.1 88 20 123/67 (85) 97 10/30/17 04:00 98.6 96 22 126/81 (96) 96 10/30/17 00:00 98.1 91 20 128/67 (87) 95 10/29/17 20:32 95 Nasal Cannula 2.00 10/29/17 20:30 101 10/29/17 20:00 98.0 115 20 139/61 (87) 95 10/29/17 16:00 98.8 95 18 130/65 (86) 95 10/29/17 16:00 117 10/29/17 13:21 96 Nasal Cannula 2.00 10/29/17 12:00 84 10/29/17 12:00 98.8 75 18 110/55 (73) 96 I/O 10/29/17 10/29/17 10/29/17 10/30/17 10/30/17 10/30/17 07:00 15:00 23:00 07:00 15:00 23:00 Intake Total 480 ml 1080 ml 320 ml Output Total 575 ml 1225 ml 800 ml Balance -95 ml -145 ml -480 ml Intake Oral 480 ml 1080 ml 320 ml Output Urine Total 575 ml 1225 ml 800 ml # Voids 1 # Bowel Movements 0 1 0 Result Diagram: 10/28/17 1505 10/28/17 1505 Imaging Last Impressions Chest X-Ray 10/26/17 0000 Signed Impressions: Service Date/Time: Thursday, October 26, 2017 18:49 - CONCLUSION: 1. Improving CHF. Lázaro Cabrera MD Objective Remarks General: No acute distress. Heart: Irregular rhythm. No murmur. Lungs: Clear to auscultation bilaterally. No wheezes, rales, or rhonchi. Breathing is nonlabored. Abdomen: Soft, nontender, nondistended. Extremities: 1+ bilateral lower extremity edema with chronic venous stasis changes. Psych: Alert and oriented. Neuro: Normal speech. No focal deficits noted. Procedures s/p EGD and colonoscopy with findings of irr z line, mult ulcers stomach, large duodenal ulcer, no bleeding diverticulosis, hemorrhoids. Urinary Catheter: No Vascular Central Line Catheter: No A/P Problem List: (1) Symptomatic anemia ICD Code: D64.9 - Anemia, unspecified (2) Atrial fibrillation ICD Code: I48.91 - Unspecified atrial fibrillation Status: Acute (3) Hyperlipidemia ICD Code: E78.5 - Hyperlipidemia, unspecified Status: Acute (4) Hypertension ICD Code: I10 - Essential (primary) hypertension Status: Acute (5) GI bleed ICD Code: K92.2 - Gastrointestinal hemorrhage, unspecified Status: Acute (6) Systolic CHF ICD Code: I50.20 - Unspecified systolic (congestive) heart failure Assessment and Plan 1. Symptomatic anemia secondary to GI bleed: Status post panendoscopy. Patient received a total of 7 units PRBCs during this hospitalization. Appreciate GI recommendations. Continue PPI. 2. Hypoxia: Appreciate pulmonology recommendations. DuoNeb as needed. Supplemental oxygen to maintain oxygen saturations above 88-92%. 3. Obstructive sleep apnea: BiPAP at night. 4. Atrial fibrillation: Continue Lopressor for rate control. Anticoagulation has been on hold secondary to GI bleed. Ordered to restart at discharge. 5. Hypertension: Continue Norvasc, Lopressor. 6. BPH: Continue Proscar. 7. Chronic systolic congestive heart failure: Continue Lasix, beta-randy. 8. DVT prophylaxis: SCDs. 9. V-tach: Asymptomatic run of V-tach. Check 2D echocardiogram. Reviewed with disability counselor covering for patient's primary disability counselor. Continue metoprolol. Discharge Planning Plan for discharge to SNF when arrangements are made. Case management assisting with discharge planning. Awaiting insurance authorization. Problem Qualifiers (1) Atrial fibrillation: Qualified Codes: I48.0 - Paroxysmal atrial fibrillation (2) GI bleed: Qualified Codes: K92.2 - Gastrointestinal hemorrhage, unspecified Leo Moreno MD October 30, 2017 11:27
--- NOTE | 2017-10-30 15:31 | HHI.PR ---
Subjective Remarks Has less cough and wheezing. On O2 2 l. Will go to rehab soon No fever. Objective Vital Signs Date Time Temp Pulse Resp B/P (MAP) Pulse Ox O2 Delivery O2 Flow Rate FiO2 10/30/17 12:00 81 10/30/17 08:54 98 Nasal Cannula 2.00 10/30/17 08:00 90 10/30/17 08:00 98.1 88 20 123/67 (85) 97 10/30/17 04:00 98.6 96 22 126/81 (96) 96 10/30/17 00:00 98.1 91 20 128/67 (87) 95 10/29/17 20:32 95 Nasal Cannula 2.00 10/29/17 20:30 101 10/29/17 20:00 98.0 115 20 139/61 (87) 95 10/29/17 16:00 98.8 95 18 130/65 (86) 95 10/29/17 16:00 117 I/O 10/29/17 10/29/17 10/29/17 10/30/17 10/30/17 10/30/17 07:00 15:00 23:00 07:00 15:00 23:00 Intake Total 480 ml 1080 ml 320 ml Output Total 575 ml 1225 ml 800 ml Balance -95 ml -145 ml -480 ml Intake Oral 480 ml 1080 ml 320 ml Output Urine Total 575 ml 1225 ml 800 ml # Voids 1 # Bowel Movements 0 1 0 Result Diagram: 10/28/17 1505 10/28/17 1505 Objective Remarks Elderly Obese W/M in no distress, Alert. HEENT: Unremarkable. Eyes without icterus. NECK: Without adenopathy, thyroid enlargement. Central trachea. CHEST: Few rhonchi at bases,with crackles CARDIAC: PMI distant. Irregularity noted. ABDOMEN: Lax, bowel sounds audible. EXTREMITIES: 1 + edema, chronic venous stasis changes noted. Assessment and Plan Assessment and Plan IMPRESSION: 1. Sleep disordered breathing, obstructive sleep apnea suspect. 2. Morbid obesity. 3. Acute gastrointestinal bleed.Resolved 4. Anemia due to above. 5. Hypertension. 6. Hyperlipidemia. 7. Atrial fibrillation. Plan : 1. Room Air sats and D/C O2 if sat >92. 2. Cont Lasix 40 mg daily 3. Duonebs tid. 4. PT evaluation. 5. Arrange home o2 if sats <88 on RA Ben Jones MD October 30, 2017 15:31
[2017-10-30] MEDS: TAMSULOSIN HCL 0.4 MG CAP PO SCH (20:08)
[2017-10-31] VITALS (12 sets, daily range): BP systolic 106–148; BP diastolic 65–78; PULSE 69–95; RESP 17–22; TEMP 97.8–98.2; O2SAT 97–98
[2017-10-31] MEDS: CHLORHEXIDINE GLUCONATE 2 % 1 PACK (2 CLOTHS) TOP SCH (04:00)
[2017-10-31] MEDS: PANTOPRAZOLE SOD 40 MG DELAYED RELEASE TAB PO SCH (08:45)
[2017-10-31] MEDS: amLODIPine BESYLATE 5 MG TAB PO SCH ×2 (08:45→22:10)
[2017-10-31] MEDS: METOPROLOL TARTRATE 50 MG TAB PO SCH ×2 (08:45→22:10)
[2017-10-31] MEDS: PRAVASTATIN SOD 20 MG TAB PO SCH (08:45)
[2017-10-31] MEDS: guaiFENesin E.R. 600 MG TAB PO SCH ×2 (08:45→22:10)
[2017-10-31] MEDS: FINASTERIDE 5 MG TAB PO SCH (08:45)
[2017-10-31] MEDS: FUROSEMIDE 40 MG TAB PO SCH (08:45)
[2017-10-31] MEDS: SODIUM CHLORIDE 0.9% FLUSH 10 ML FLUSH IV FLUSH SCH ×2 (08:46→22:10)
[2017-10-31] MEDS: MAGNESIUM HYDROXIDE SUSP 30 ML CUP PO PRN (08:58)
--- NOTE | 2017-10-31 13:32 | HHI.PR ---
Subjective Remarks Follow up weakness, V-tach. Patient has no complaints at this time. Denies chest pain, dyspnea, palpitations. Objective Vitals Vital Signs Date Time Temp Pulse Resp B/P (MAP) Pulse Ox O2 Delivery O2 Flow Rate FiO2 10/31/17 12:00 98.0 69 18 106/67 (80) 97 10/31/17 08:13 97 Nasal Cannula 2.00 10/31/17 08:00 95 10/31/17 08:00 97.8 86 18 124/75 (91) 97 10/31/17 04:00 97.9 80 22 128/76 (93) 98 10/31/17 03:43 81 10/31/17 01:00 80 10/31/17 00:00 98.1 83 20 148/78 (101) 98 10/30/17 20:00 98.5 106 20 121/87 (98) 96 10/30/17 19:39 105 10/30/17 16:00 93 10/30/17 16:00 98.2 127 20 158/73 (101) 97 I/O 10/30/17 10/30/17 10/30/17 10/31/17 10/31/17 10/31/17 07:00 15:00 23:00 07:00 15:00 23:00 Intake Total 320 ml 720 ml 450 ml Output Total 800 ml 800 ml 900 ml Balance -480 ml -80 ml -450 ml Intake Oral 320 ml 720 ml 450 ml Output Urine Total 800 ml 800 ml 900 ml # Bowel Movements 0 0 0 Result Diagram: 10/28/17 1505 10/28/17 1505 Imaging Last Impressions Chest X-Ray 10/26/17 0000 Signed Impressions: Service Date/Time: Thursday, October 26, 2017 18:49 - CONCLUSION: 1. Improving CHF. Lázaro Cabrera MD Objective Remarks General: No acute distress. Heart: Irregular rhythm. No murmur. Lungs: Clear to auscultation bilaterally. No wheezes, rales, or rhonchi. Breathing is nonlabored. Abdomen: Soft, nontender, nondistended. Extremities: 1+ bilateral lower extremity edema with chronic venous stasis changes. Psych: Alert and oriented. Neuro: Normal speech. No focal deficits noted. Procedures s/p EGD and colonoscopy with findings of irr z line, mult ulcers stomach, large duodenal ulcer, no bleeding diverticulosis, hemorrhoids. Urinary Catheter: No Vascular Central Line Catheter: No A/P Problem List: (1) Symptomatic anemia ICD Code: D64.9 - Anemia, unspecified (2) Atrial fibrillation ICD Code: I48.91 - Unspecified atrial fibrillation Status: Acute (3) Hyperlipidemia ICD Code: E78.5 - Hyperlipidemia, unspecified Status: Acute (4) Hypertension ICD Code: I10 - Essential (primary) hypertension Status: Acute (5) GI bleed ICD Code: K92.2 - Gastrointestinal hemorrhage, unspecified Status: Acute (6) Systolic CHF ICD Code: I50.20 - Unspecified systolic (congestive) heart failure Assessment and Plan 10/31/17: Awaiting echocardiogram. If unremarkable, will continue discharge planning. Awaiting insurance authorization for SNF. 1. Symptomatic anemia secondary to GI bleed: Status post panendoscopy. Patient received a total of 7 units PRBCs during this hospitalization. Appreciate GI recommendations. Continue PPI. 2. Hypoxia: Appreciate pulmonology recommendations. DuoNeb as needed. Supplemental oxygen to maintain oxygen saturations above 88-92%. 3. Obstructive sleep apnea: BiPAP at night. 4. Atrial fibrillation: Continue Lopressor for rate control. Anticoagulation has been on hold secondary to GI bleed. Ordered to restart at discharge. 5. Hypertension: Continue Norvasc, Lopressor. 6. BPH: Continue Proscar. 7. Chronic systolic congestive heart failure: Continue Lasix, beta-randy. 8. DVT prophylaxis: SCDs. 9. V-tach: Asymptomatic run of V-tach. 2D echocardiogram ordered. 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 Continue metoprolol. Discharge Planning Plan for discharge to SNF when arrangements are made. Case management assisting with discharge planning. Awaiting insurance authorization. Problem Qualifiers (1) Atrial fibrillation: Qualified Codes: I48.0 - Paroxysmal atrial fibrillation (2) GI bleed: Qualified Codes: K92.2 - Gastrointestinal hemorrhage, unspecified Leo Moreno MD October 31, 2017 13:32
--- NOTE | 2017-10-31 14:48 | HHI.PR ---
Subjective Remarks ALERT no distress NO SOB Objective Vital Signs Date Time Temp Pulse Resp B/P (MAP) Pulse Ox O2 Delivery O2 Flow Rate FiO2 10/31/17 12:00 98.0 69 18 106/67 (80) 97 10/31/17 08:13 97 Nasal Cannula 2.00 10/31/17 08:00 95 10/31/17 08:00 97.8 86 18 124/75 (91) 97 10/31/17 04:00 97.9 80 22 128/76 (93) 98 10/31/17 03:43 81 10/31/17 01:00 80 10/31/17 00:00 98.1 83 20 148/78 (101) 98 10/30/17 20:00 98.5 106 20 121/87 (98) 96 10/30/17 19:39 105 10/30/17 16:00 93 10/30/17 16:00 98.2 127 20 158/73 (101) 97 I/O 10/30/17 10/30/17 10/30/17 10/31/17 10/31/17 10/31/17 07:00 15:00 23:00 07:00 15:00 23:00 Intake Total 320 ml 720 ml 450 ml Output Total 800 ml 800 ml 900 ml Balance -480 ml -80 ml -450 ml Intake Oral 320 ml 720 ml 450 ml Output Urine Total 800 ml 800 ml 900 ml # Bowel Movements 0 0 0 Result Diagram: 10/28/17 1505 10/28/17 1505 Objective Remarks GENERAL: SKIN: Warm and dry. HEAD: Atraumatic. Normocephalic. EYES: Pupils equal and round. No scleral icterus. No injection or drainage. ENT: No nasal bleeding or discharge. Mucous membranes pink and moist. NECK: Trachea midline. No JVD. CARDIOVASCULAR: Regular rate and rhythm. RESPIRATORY: No accessory muscle use. Clear to auscultation. Breath sounds equal bilaterally. GASTROINTESTINAL: Abdomen soft, non-tender, nondistended. Hepatic and splenic margins not palpable. MUSCULOSKELETAL: Extremities without clubbing, cyanosis, or edema. No obvious deformities. NEUROLOGICAL: Awake and alert. No obvious cranial nerve deficits. Motor grossly within normal limits. Five out of 5 muscle strength in the arms and legs. Normal speech. PSYCHIATRIC: Appropriate mood and affect; insight and judgment normal. Assessment and Plan Assessment and Plan IMPRESSIONM RESP FAILURE AFIB CHF SDB ? CHINTAN MORBID OBESITY GI BLEED PLAN O2 NEEDED NEB ALBUTEROL PRN INCREASE ACTIVITY Doc Roach MD October 31, 2017 14:48
--- NOTE | 2017-10-31 17:25 | ECHRPT ---
Indication: HEART FAILURE CONCLUSIONS The left ventricular systolic function is normal with an estimated ejection fraction of 55%. Normal left ventricular size. Wall thickness is normal. No regional wall motion abnormalities are present. The right atrial size is [id number] dilated. Aortic sclerosis without stenosis. Mild thickening of the mitral valve leaflets. Mitral annular calcification. Trace mitral valve regurgitation. There is mild to moderate tricuspid valve regurgitation. The estimated pulmonary arterial pressure is 52 mmHg. BP: 124 / 75 HR: 86 Rhythm: MEASUREMENTS (Male / Female) Normal Values Technical Quality:Poor 2D ECHO LV Diastolic Diameter PLAX 5.7 cm 4.2 - 5.9 / 3.9 - 5.3 cm LV Systolic Diameter PLAX 3.4 cm IVS Diastolic Thickness 1.1 cm 0.6 - 1.0 / 0.6 - 0.9 cm LVPW Diastolic Thickness 1.1 cm 0.6 - 1.0 / 0.6 - 0.9 cm LV Relative Wall Thickness 0.4 RV Internal Dim ED PLAX 3.9 cm LVOT Diameter 2.0 cm LA Systolic Diameter LX 5.5 cm 3.0 - 4.0 / 2.7 - 3.8 cm LV Ejection Fraction MOD 4C 64.2 % LV Cardiac Index MOD 4C 2154.7 cm/minm LV Ejection Fraction 4C AL 65.2 % LV Cardiac Index 4C AL 2261.2 cm/minm M-MODE Aortic Root Diameter MM 3.5 cm LA Systolic Diameter MM 5.1 cm LA Ao Ratio MM 1.5 AV Cusp Separation MM 2.1 cm DOPPLER AV Peak Velocity 164.0 cm/s AV Peak Gradient 10.8 mmHg LVOT Peak Velocity 125.0 cm/s LVOT Peak Gradient 6.3 mmHg AV Area Cont Eq pk 2.4 cm MV Area PHT 5.1 cm TR Peak Velocity 322.0 cm/s TR Peak Gradient 41.5 mmHg Right Atrial Pressure 10.0 mmHg Pulmonary Artery Systolic Pressu 51.5 mmHg Right Ventricular Systolic Press 51.5 mmHg PV Peak Velocity 171.0 cm/s PV Peak Gradient 11.7 mmHg FINDINGS LEFT VENTRICLE The left ventricular systolic function is normal with an estimated ejection fraction of 55%. Normal left ventricular size. Wall thickness is normal. No regional wall motion abnormalities are present. RIGHT VENTRICLE Normal right ventricular size and systolic function. LEFT ATRIUM The left atrial size is normal. RIGHT ATRIUM The right atrial size is [id number] dilated. ATRIAL SEPTUM Normal atrial septal thickness without atrial level shunting by limited color doppler interrogation. AORTA The aortic root and proximal ascending aorta are normal in size on limited imaging. MITRAL VALVE Mitral annular calcification is present. Mild thickening of the mitral valve leaflets. Trace mitral valve regurgitation. AORTIC VALVE Trileaflet aortic valve. No aortic valve stenosis or regurgitation. Aortic sclerosis. TRICUSPID VALVE Structurally normal tricuspid valve. There is mild to moderate tricuspid valve regurgitation. The estimated pulmonary arterial pressure is 51.5 mmHg. PULMONARY VALVE No pulmonary valve regurgitation or stenosis. VESSELS The inferior vena cava was not well visualized. PERICARDIUM No pericardial effusion. Becki Wiseman MD, FACC (Electronically Signed) Final Date:31 Oct 2017 17:24
[2017-10-31] MEDS: TAMSULOSIN HCL 0.4 MG CAP PO SCH (22:10)
[2017-11-01] VITALS: BP 108/58; PULSE 80; PULSE 84; RESP 17; TEMP 98.4; O2SAT 99
[2017-11-01] MEDS: CHLORHEXIDINE GLUCONATE 2 % 1 PACK (2 CLOTHS) TOP SCH (03:51)
[2017-11-01 04:00] VITALS: BP 111/61; PULSE 107; PULSE 85; RESP 16; TEMP 97.8; O2SAT 96
[2017-11-01 08:00] VITALS: PULSE 91
[2017-11-01 08:02] VITALS: BP 117/55; PULSE 87; RESP 16; TEMP 98.1; O2SAT 98
--- NOTE | 2017-11-01 08:51 | HHI.PR ---
Subjective Remarks ALERT no distress up in chair Objective Vital Signs Date Time Temp Pulse Resp B/P (MAP) Pulse Ox O2 Delivery O2 Flow Rate FiO2 11/01/17 04:00 97.8 85 16 111/61 (78) 96 11/01/17 04:00 Nasal Cannula 2.00 11/01/17 04:00 107 11/01/17 00:00 Nasal Cannula 2.00 11/01/17 00:00 98.4 84 17 108/58 (75) 99 11/01/17 00:00 80 10/31/17 21:45 98.1 87 17 112/65 (81) 97 10/31/17 20:27 Nasal Cannula 2.00 10/31/17 20:00 88 10/31/17 20:00 Nasal Cannula 2.00 10/31/17 16:43 82 10/31/17 16:20 98.2 75 18 125/74 (91) 98 10/31/17 15:42 89 10/31/17 12:00 98.0 69 18 106/67 (80) 97 I/O 10/31/17 10/31/17 10/31/17 11/01/17 11/01/17 11/01/17 07:00 15:00 23:00 07:00 15:00 23:00 Intake Total 450 ml 720 ml 450 ml Output Total 900 ml 800 ml 750 ml Balance -450 ml -80 ml -300 ml Intake Oral 450 ml 720 ml 450 ml Output Urine Total 900 ml 800 ml 750 ml # Voids 2 # Bowel Movements 0 1 Result Diagram: 10/28/17 1505 10/28/17 1505 Objective Remarks GENERAL: SKIN: Warm and dry. HEAD: Atraumatic. Normocephalic. EYES: Pupils equal and round. No scleral icterus. No injection or drainage. ENT: No nasal bleeding or discharge. Mucous membranes pink and moist. NECK: Trachea midline. No JVD. CARDIOVASCULAR: Regular rate and rhythm. RESPIRATORY: No accessory muscle use. Clear to auscultation. Breath sounds equal bilaterally. GASTROINTESTINAL: Abdomen soft, non-tender, nondistended. Hepatic and splenic margins not palpable. MUSCULOSKELETAL: Extremities without clubbing, cyanosis, or edema. No obvious deformities. NEUROLOGICAL: Awake and alert. No obvious cranial nerve deficits. Motor grossly within normal limits. Five out of 5 muscle strength in the arms and legs. Normal speech. PSYCHIATRIC: Appropriate mood and affect; insight and judgment normal. Assessment and Plan Assessment and Plan IMPRESSIONM RESP FAILURE AFIB CHF SDB ? CHINTAN MORBID OBESITY GI BLEED PLAN O2 NEEDED NEB ALBUTEROL PRN INCREASE ACTIVITY home soon office 2 weeks post D/C Doc Roach MD November 01, 2017 08:50
[2017-11-01] MEDS: FINASTERIDE 5 MG TAB PO SCH (09:48)
[2017-11-01] MEDS: guaiFENesin E.R. 600 MG TAB PO SCH (09:48)
[2017-11-01] MEDS: amLODIPine BESYLATE 5 MG TAB PO SCH (09:48)
[2017-11-01] MEDS: PANTOPRAZOLE SOD 40 MG DELAYED RELEASE TAB PO SCH (09:48)
[2017-11-01] MEDS: PRAVASTATIN SOD 20 MG TAB PO SCH (09:48)
[2017-11-01] MEDS: METOPROLOL TARTRATE 50 MG TAB PO SCH (09:48)
[2017-11-01] MEDS: SODIUM CHLORIDE 0.9% FLUSH 10 ML FLUSH IV FLUSH SCH (09:49)
[2017-11-01] MEDS: FUROSEMIDE 40 MG TAB PO SCH (09:49)
--- NOTE | 2017-11-01 09:52 | HHI.DS ---
Discharge Summary Admission Date Oct 21, 2017 at 17:41 Discharge Date: November 01, 2017 Admitting Diagnosis gi bleed,critical anemia,anticoagulated (1) Symptomatic anemia ICD Code: D64.9 - Anemia, unspecified (2) Atrial fibrillation ICD Code: I48.91 - Unspecified atrial fibrillation Status: Acute (3) Hyperlipidemia ICD Code: E78.5 - Hyperlipidemia, unspecified Status: Acute (4) Hypertension ICD Code: I10 - Essential (primary) hypertension Status: Acute (5) GI bleed ICD Code: K92.2 - Gastrointestinal hemorrhage, unspecified Status: Acute (6) Systolic CHF ICD Code: I50.20 - Unspecified systolic (congestive) heart failure Procedures s/p EGD and colonoscopy with findings of irr z line, mult ulcers stomach, large duodenal ulcer, no bleeding diverticulosis, hemorrhoids. Brief History - From Admission 77-year-old gentleman with history of atrial fibrillation on Eliquis presents complaining of diarrhea of dark stool and weakness. The symptoms are started a couple days ago. He had 3 episodes today. He denies vomiting or abdominal pain or presyncopal symptoms. Symptom severity is moderate. No alleviating factors. He does not know if he is currently taking or recently take antibiotics. He denies prior diarrhea issues or colon problems. CBC/BMP: 10/28/17 1505 10/28/17 1505 Imaging Last Impressions Chest X-Ray 10/26/17 0000 Signed Impressions: Service Date/Time: Thursday, October 26, 2017 18:49 - CONCLUSION: 1. Improving CHF. Lázaro Cabrera MD PE at Discharge General: No acute distress. Heart: Irregular rhythm. No murmur. Lungs: Clear to auscultation bilaterally. No wheezes, rales, or rhonchi. Breathing is nonlabored. Abdomen: Soft, nontender, nondistended. Extremities: 1+ bilateral lower extremity edema with chronic venous stasis changes. Psych: Alert and oriented. Neuro: Normal speech. No focal deficits noted. Pt update on day of discharge The patient has no complaints at this time. He denies chest pain, dyspnea, palpitations. He wants to get out of the hospital today. Hospital Course Patient was admitted to the critical care service for management of GI bleed and anemia secondary to acute blood loss. He received a total of 7 units PRBCs during the hospitalization. H&H were monitored closely. Gastroenterology was consulted. EGD and colonoscopy were done. A large duodenal ulcer was found as well as multiple gastric ulcers. He was continued on PPI. Hemoglobin stabilized. Pulmonology was consulted and recommended outpatient sleep study. The patient improved throughout the hospitalization. He was felt to be stable for discharge, however there was difficulty arranging long term facility placement due to insurance authorization issues. The patient was noted on telemetry to have a short run of V. tach. 2D echocardiogram was done. Patient had no further episodes and remained asymptomatic. He was felt to be stable for discharge to SNF. Case management assisted with discharge planning and arrangements were made for SNF placement. Pt Condition on Discharge: Stable Discharge Disposition: Discharge to SNF Discharge Time: > 30 minutes Discharge Instructions DIET: Follow Instructions for: Heart Healthy Diet Activities you can perform: Regular-No Restrictions Follow up Referrals: Gastroenterology PCP Follow-up - 1 Week New Medications: Pantoprazole (Protonix) 40 Mg Tab 40 MG PO DAILY for Reflux, #30 TAB 0 Refills Amlodipine (Norvasc) 5 Mg Tab 5 MG PO BID for Blood Pressure Management, #60 TAB 3 Refills Continued Medications: Apixaban (Eliquis) 5 Mg Tab 5 MG PO BID for Blood Clot Prevention, #60 TAB 0 Refills Finasteride (Finasteride) 5 Mg Tab 5 MG PO DAILY for Manage Prostate Problems, #30 TAB 0 Refills Do not crush. Furosemide (Lasix) 40 Mg Tab 40 MG PO DAILY for fluid retention, #62 TAB Metoprolol Tartrate (Lopressor) 50 Mg Tab 50 MG PO Q12HR for atrial fib, #60 TAB Potassium Chloride ER (Potassium Chloride ER) 20 Meq Tab 20 MEQ PO BID for Electrolyte Replacement, #60 TAB 0 Refills Simvastatin (Simvastatin) 10 Mg Tab 10 MG PO DAILY for Cholesterol Management, #30 TAB 0 Refills Tamsulosin (Tamsulosin) 0.4 Mg Cap 0.4 MG PO HS for Manage Prostate Problems, #30 CAP 0 Refills Discontinued Medications: Diltiazem (Diltiazem) 90 Mg Tab 90 MG PO QID for cough, #20 TAB Stoverink,Leo D. MD November 01, 2017 09:52
[2017-11-01 12:02] VITALS: BP 129/74; PULSE 92; RESP 18; TEMP 98.2; O2SAT 98
== END 2017-11-01 12:19 | DRG 378 ==
LOC: NEPC 15:49 → NEDA 17:41 → HIMN 20:43 → N06A 10-24 15:29 → HIMW 10-25 09:36 → N04B 10-28 15:00
PROVIDERS: ADMIT Family Medicine; ATTEND Family Medicine
PROC: 30233N1 Transfusion of Nonautologous Red Blood Cells into Peripheral Vein, Percutaneous Approach (ICD-10-PCS; 2017-10-21)
PROC: 0DB68ZX Excision of Stomach, Via Natural or Artificial Opening Endoscopic, Diagnostic (ICD-10-PCS; principal; 2017-10-22 14:30)
PROC: 5A09357 Assistance with Respiratory Ventilation, Less than 24 Consecutive Hours, Continuous Positive Airway Pressure (ICD-10-PCS; 2017-10-25)
DX: K92.1 Melena (principal); D62 Acute posthemorrhagic anemia; N17.9 Acute kidney failure, unspecified; I47.2 Ventricular tachycardia; I11.0 Hypertensive heart disease with heart failure; I50.22 Chronic systolic (congestive) heart failure; E87.5 Hyperkalemia; I48.0 Paroxysmal atrial fibrillation; J98.11 Atelectasis; Z79.01 Long term (current) use of anticoagulants; Z87.442 Personal history of urinary calculi; E78.5 Hyperlipidemia, unspecified; K59.00 Constipation, unspecified; G47.00 Insomnia, unspecified; E66.09 Other obesity due to excess calories; Z68.36 Body mass index [BMI] 36.0-36.9, adult; G47.33 Obstructive sleep apnea (adult) (pediatric); K25.9 Gastric ulcer, unspecified as acute or chronic, without hemorrhage or perforation; K64.8 Other hemorrhoids; K57.30 Diverticulosis of large intestine without perforation or abscess without bleeding; K26.9 Duodenal ulcer, unspecified as acute or chronic, without hemorrhage or perforation; Z75.1 Person awaiting admission to adequate facility elsewhere; I87.8 Other specified disorders of veins; N40.0 Benign prostatic hyperplasia without lower urinary tract symptoms; R09.02 Hypoxemia; H91.90 Unspecified hearing loss, unspecified ear; H40.9 Unspecified glaucoma; E87.6 Hypokalemia; R79.1 Abnormal coagulation profile; Z85.828 Personal history of other malignant neoplasm of skin
CPT/HCPCS: 36430; 36600; 71045; 76937; 80053; 82805; 82941; 82948; 83036; 83735; 84100; 84439; 84443; 85007; 85014; 85018; 85025; 85027; 85384; 85610; 85730; 86850; 86900; 86901; 86920; 87493; 87641; 88305; 88312; 93005; 93306; 94002; 94003; 94640; 94664; 96360; 99292; C9113; C9132; J0610; J1160; J1940; J2250; J2270; J2370; J2405; J3430; J7030; J7050; J7614; P9016